=== PATIENT | male | born 1950 | race African-American/Black ===

== ENCOUNTER 2016-11-15 10:47 | Emergency (ER) | payer MEDICARE ==
[~2016-11-15] VITALS: Ht 185.4 cm; Wt 136.1 kg
[~2016-11-15 10:47] MED LIST: AMLO5TAB2 PO; APIX2.5T PO; ASPI1TAB30 PO; IBUP-1027 PO; INDO25CA PO; LISI-334 PO; LISI1TAB5 PO; METH4TAB2 PO; OMEP20TA PO; RIVA10TA PO; TIZA4CAP3 PO
[2016-11-15 11:20] VITALS: BP 132/78
[2016-11-15] MEDS ORDERED: IV NORMAL SALINE 500ML BAG 500 ML IV ONE (11:45)
[2016-11-15 12:29] LABS: BASO # 0.1 x10^3/uL (0.0-0.2); BASO % 2 % (0-3); EOS % 4 % (0-3); HEMATOCRIT 40.5 % (39.0-53.0); HEMOGLOBIN 13.5 g/dL (13.0-17.5); LYMPH % 27 % (24-48); MEAN CORPUSCULAR HEMOGLOBIN 32 pg (25-35); MEAN CORPUSCULAR HGB CONC 33 g/dL (31-37); MEAN CORPUSCULAR VOLUME 95 fL (79-100); MONO % 9 % (0-9); NEUT % 59 % (31-73); PLATELET COUNT 291 x10^3/uL (140-400); RED BLOOD COUNT 4.25 x10^6/uL (4.30-5.70); RED CELL DISTRIBUTION WIDTH 13.9 % (11.5-14.5); WHITE BLOOD COUNT 7.4 x10^3/uL (4.0-11.0)
[2016-11-15 12:32] LABS: CALCIUM 9.7 mg/dL (8.5-10.1); CREATININE 1.2 mg/dL (0.7-1.3); GFR 73.5; POTASSIUM 4.1 mmol/L (3.5-5.1)
[2016-11-15 12:38] LABS: ALBUMIN 3.7 g/dL (3.4-5.0); DIRECT BILIRUBIN 0.1 mg/dL (0.0-0.2); TOTAL BILIRUBIN 0.4 mg/dL (0.2-1.0); TOTAL PROTEIN 8.2 g/dL (6.4-8.2)
[2016-11-15] MEDS ORDERED: LIDO:MAALOX:DONNATAL 1:1:1 15 ML SINGLE DOSE SWSW ONE (13:00)
--- NOTE | 2016-11-15 13:15 | PHYS DOC ---
Past Medical History Past Medical History: A-Fib, Hypertension, Sciatica, Stroke, Other Additional Past Medical Histor: polyp Past Surgical History: Other Additional Past Surgical Histo: R knee "muscle repair"; colonoscopy Alcohol Use: None Drug Use: Marijuana Adult General Chief Complaint Chief Complaint: ABDOMINAL PAIN HPI HPI Patient is a 66 year old male who presents with multiple complaints that have developed over the past 2-3 weeks. He has intermittent, migratory abdominal pain that is crampy with constant achy epigastric abdominal pain; decreased oral intake; and intermittent left neck pain and left arm numbness. He denies chest pain, dyspnea, fever or chills, nausea or vomiting, diarrhea, constipation , dysuria, back pain, lightheadedness, dizziness, exertional symptoms, orthopnea. Review of Systems Review of Systems Constitutional: Denies fever or chills [] Eyes: Denies change in visual acuity, redness, or eye pain [] HENT: Denies nasal congestion or sore throat [] Respiratory: Denies cough or shortness of breath [] Cardiovascular: No additional information not addressed in HPI [] GI: Denies nausea, vomiting, bloody stools or diarrhea [] : Denies dysuria or hematuria [] Musculoskeletal: Denies back pain or joint pain [] Integument: Denies rash or skin lesions [] Neurologic: Denies headache, focal weakness or sensory changes [] Endocrine: Denies polyuria or polydipsia [] Current Medications Current Medications Current Medications Medications (Trade) Dose Ordered Sig/Fawad Start Time Stop Time Status Last Admin Dose Admin Multi-Ingredient Mouthwash/Gargle (Gi Cocktail Single Dose) 15 ml 1X ONCE 11/15/16 13:00 11/15/16 13:01 DC 11/15/16 13:14 15 ML Sodium Chloride (Iv Sodium Chloride 0.9% 500ml Bag) 500 ml @ 500 mls/hr 1X ONCE 11/15/16 11:45 11/15/16 12:44 DC 11/15/16 12:12 500 MLS/HR Allergies Allergies Allergies Coded Allergies Type Severity Reaction Last Updated Verified No Known Drug Allergies 05/06/15 No Physical Exam Physical Exam Constitutional: Well developed, well nourished, no acute distress, non-toxic appearance. [] HENT: Normocephalic, atraumatic, bilateral external ears normal, oropharynx moist, no oral exudates, nose normal. [] Eyes: PERRLA, EOMI. [] Neck: Normal range of motion, supple. [] Cardiovascular:Heart rate regular rhythm [] Lungs & Thorax: Bilateral breath sounds clear to auscultation [] Abdomen: Bowel sounds normal, soft, minimal epigastric tenderness, no guarding or rebound. [] Skin: Warm, dry, no erythema, no rash. [] Back: No tenderness, no CVA tenderness. [] Extremities: ROM intact, no edema, equal extremity pulses. [] Neurologic: Alert and oriented X 3, normal motor function, normal sensory function, no focal deficits noted, cranial nerves II through XII intact. [] Psychologic: Affect normal, judgement normal, mood normal. [] Current Patient Data Vital Signs Vital Signs Date Time Temp Pulse Resp B/P Pulse Ox O2 Delivery O2 Flow Rate FiO2 11/15/16 11:20 97.9 90 20 132/78 98 Room Air 97.9 Lab Values Laboratory Tests Test 11/15/16 12:10 White Blood Count 7.4x10^3/uL (4.0-11.0) Red Blood Count 4.25x10^6/uL (4.30-5.70) L Hemoglobin 13.5g/dL (13.0-17.5) Hematocrit 40.5% (39.0-53.0) Mean Corpuscular Volume 95fL (79-100) Mean Corpuscular Hemoglobin 32pg (25-35) Mean Corpuscular Hemoglobin Concent 33g/dL (31-37) Red Cell Distribution Width 13.9% (11.5-14.5) Platelet Count 291x10^3/uL (140-400) Neutrophils (%) (Auto) 59% (31-73) Lymphocytes (%) (Auto) 27% (24-48) Monocytes (%) (Auto) 9% (0-9) Eosinophils (%) (Auto) 4% (0-3) H Basophils (%) (Auto) 2% (0-3) Neutrophils # (Auto) 4.3x10^3uL (1.8-7.7) Lymphocytes # (Auto) 2.0x10^3/uL (1.0-4.8) Monocytes # (Auto) 0.7x10^3/uL (0.0-1.1) Eosinophils # (Auto) 0.3x10^3/uL (0.0-0.7) Basophils # (Auto) 0.1x10^3/uL (0.0-0.2) Sodium Level 137mmol/L (136-145) Potassium Level 4.1mmol/L (3.5-5.1) Chloride Level 102mmol/L (98-107) Carbon Dioxide Level 27mmol/L (21-32) Anion Gap 8 (6-14) Blood Urea Nitrogen 13mg/dL (8-26) Creatinine 1.2mg/dL (0.7-1.3) Estimated GFR (Cockcroft-Gault) 73.5 Glucose Level 118mg/dL (70-99) H Calcium Level 9.7mg/dL (8.5-10.1) Total Bilirubin 0.4mg/dL (0.2-1.0) Direct Bilirubin 0.1mg/dL (0.0-0.2) Aspartate Amino Transferase (AST) 15U/L (15-37) Alanine Aminotransferase (ALT) 20U/L (16-63) Alkaline Phosphatase 56U/L (46-116) Troponin I Quantitative < 0.017ng/mL (0.000-0.055) Total Protein 8.2g/dL (6.4-8.2) Albumin 3.7g/dL (3.4-5.0) Lipase 75U/L (73-393) Laboratory Tests 11/15/16 12:10 Laboratory Tests 11/15/16 12:10 EKG EKG EKG as interpreted by me as normal sinus rhythm, rate 78, no ST-T changes, normal intervals, PVCs Course & Med Decision Making Course & Med Decision Making Pertinent Labs and Imaging studies reviewed. (See chart for details) Workup is unremarkable. He is feeling better after medications. Will give trial of antacid for possible gastritis. Encouraged close follow-up with primary care. Return precautions given. He understands and agrees with plan. Dragon Disclaimer Dragon Disclaimer This electronic medical record was generated, in whole or in part, using a voice recognition dictation system. Departure Departure Impression: Primary Impression: Epigastric abdominal pain Disposition: HOME, SELF-CARE Condition: STABLE Referrals: REYNA COLEY (PCP) Patient Instructions: Gastritis, Adult, [id number] Additional Instructions: Take famotidine for possible gastritis. Follow-up with your primary care doctor within one week. Return for any concerns. Scripts Famotidine 20 Mg [id number] Mg PO BID #30 TAB Prov:Fermin UPTON MD 11/15/16 Fermin UPTON MD Nov 15, 2016 13:15
[2016-11-15] MEDS ORDERED: FAMO20TA5 PO (13:20)
--- NOTE | 2016-11-15 14:21 | EKG ---
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
== END 2016-11-15 13:35 | disposition home or self-care (01) ==
LOC: ER 10:47
DX: R10.13 Epigastric pain (principal); I10 Essential (primary) hypertension; F12.10 Cannabis abuse, uncomplicated; M54.30 Sciatica, unspecified side; Z86.73 Personal history of transient ischemic attack (TIA), and cerebral infarction without residual deficits
CPT/HCPCS: 36415; 80048; 80076; 83690; 84484; 85027; 93005; 96360; 99285; J7040

== ENCOUNTER 2017-03-24 22:23 | Emergency (ER) | payer MEDICARE ==
[~2017-03-24] VITALS: Ht 185.4 cm; Wt 135.6 kg
[~2017-03-24 22:23] MED LIST changes: +AMIO200T2 PO; +FAMO20TA5 PO; -OMEP20TA PO; +OMEP20TA8 PO; +RIVA20TA2 PO
[2017-03-24 23:12] LABS: BASO # 0.1 x10^3/uL (0.0-0.2); BASO % 1 % (0-3); EOS % 4 % (0-3); HEMATOCRIT 37.9 % (39.0-53.0); HEMOGLOBIN 12.6 g/dL (13.0-17.5); LYMPH # 2.3 x10^3/uL (1.0-4.8); LYMPH % 24 % (24-48); MEAN CORPUSCULAR HEMOGLOBIN 31 pg (25-35); MEAN CORPUSCULAR HGB CONC 33 g/dL (31-37); MEAN CORPUSCULAR VOLUME 92 fL (79-100); MONO % 6 % (0-9); NEUT % 65 % (31-73); PLATELET COUNT 316 x10^3/uL (140-400); RED BLOOD COUNT 4.12 x10^6/uL (4.30-5.70); RED CELL DISTRIBUTION WIDTH 14.5 % (11.5-14.5); WHITE BLOOD COUNT 9.6 x10^3/uL (4.0-11.0)
[2017-03-24] MEDS ORDERED: IV NORMAL SALINE 1000ML BAG 1,000 ML IV SCH (23:15)
[2017-03-24 23:19] LABS: CALCIUM 8.9 mg/dL (8.5-10.1); CREATININE 1.4 mg/dL (0.7-1.3); GFR 61.4; POTASSIUM 3.6 mmol/L (3.5-5.1)
--- NOTE | 2017-03-24 23:29 | PHYS DOC ---
Past Medical History Past Medical History: A-Fib, Hypertension, Sciatica, Stroke, Other Additional Past Medical Histor: polyp,A FIB W/RVR Past Surgical History: Other Additional Past Surgical Histo: R knee "muscle repair"; colonoscopy Alcohol Use: None Drug Use: Marijuana Adult General Chief Complaint Chief Complaint: Palpitations HPI HPI 67-year-old male with a history of atrial fibrillation on xarelto and amio, with which he is compliant, now presents to the emergency department complaining of lightheadedness. She has had a recent diagnosis of atrial fibrillation for which she was anticoagulated. He is under the care of Dr. Dias the internal combustion engine subassembler. Patient has been anxious about his medical condition and recently has felt mildly lightheaded. Suspect Dr. Dias who recommended that they arrange an outpatient Holter monitoring to rule out the possibility of an arrhythmia associated with the symptoms. This was discussed yesterday so the Holter monitor has not been arranged yet. Patient is still having the same symptoms of anxiety regarding his medical condition and occasional lightheadedness. No chest pain or shortness of breath. Patient denies fevers chills sweats or shaking chills. He says he does urinate frequently and he was somewhat concerned about that as well but does not have pain with urination. No flank pain or fever. Otherwise asymptomatic Review of Systems Review of Systems Constitutional: Denies fever or chills [] Eyes: Denies change in visual acuity, redness, or eye pain [] HENT: Denies nasal congestion or sore throat [] Respiratory: Denies cough or shortness of breath [] Cardiovascular: No additional information not addressed in HPI [] GI: Denies abdominal pain, nausea, vomiting, bloody stools or diarrhea [] : Denies dysuria or hematuria [] Musculoskeletal: Denies back pain or joint pain [] Integument: Denies rash or skin lesions [] Neurologic: Denies headache, focal weakness or sensory changes [] Endocrine: Denies polyuria or polydipsia [] Current Medications Current Medications Current Medications Medications (Trade) Dose Ordered Sig/Fawad Start Time Stop Time Status Last Admin Dose Admin Alprazolam (Xanax) 1 mg 1X ONCE 03/24/17 23:30 03/24/17 23:31 DC 03/24/17 23:34 1 MG Sodium Chloride 1,000 ml @ 1,000 mls/hr Q1H 6/29/17 23:15 03/25/17 00:14 DC 03/24/17 23:11 1,000 MLS/HR Allergies Allergies Allergies Coded Allergies Type Severity Reaction Last Updated Verified No Known Drug Allergies 05/06/15 No Physical Exam Physical Exam Well-appearing morbidly obese male in no acute distress except clearly with mild anxiety. Nonfocal neurologic exam. Regular rate and rhythm with no tachycardia. Completely benign exam otherwise Constitutional: Well developed, well nourished, no acute distress, non-toxic appearance. [] HENT: Normocephalic, atraumatic, bilateral external ears normal, oropharynx moist, no oral exudates, nose normal. [] Eyes: PERRLA, EOMI, conjunctiva normal, no discharge. [] Neck: Normal range of motion, no tenderness, supple, no stridor. [] Cardiovascular:Heart rate regular rhythm, no murmur [] Lungs & Thorax: Bilateral breath sounds clear to auscultation [] Abdomen: Bowel sounds normal, soft, no tenderness, no masses, no pulsatile masses. [] Skin: Warm, dry, no erythema, no rash. [] Back: No tenderness, no CVA tenderness. [] Extremities: No tenderness, no cyanosis, no clubbing, ROM intact, no edema. [] Neurologic: Alert and oriented X 3, normal motor function, normal sensory function, no focal deficits noted. [] Psychologic: Affect with mild anxiety as mentioned above judgement normal, mood normal. [] Current Patient Data Vital Signs Vital Signs Date Time Temp Pulse Resp B/P (MAP) Pulse Ox O2 Delivery O2 Flow Rate FiO2 03/24/17 22:35 98.9 81 18 144/78 (100) 98 Room Air 98.9 Lab Values Laboratory Tests Test 03/24/17 22:50 03/24/17 23:58 White Blood Count 9.6 x10^3/uL (4.0-11.0) Red Blood Count 4.12 x10^6/uL (4.30-5.70) L Hemoglobin 12.6 g/dL (13.0-17.5) L Hematocrit 37.9 % (39.0-53.0) L Mean Corpuscular Volume 92 fL (79-100) Mean Corpuscular Hemoglobin 31 pg (25-35) Mean Corpuscular Hemoglobin Concent 33 g/dL (31-37) Red Cell Distribution Width 14.5 % (11.5-14.5) Platelet Count 316 x10^3/uL (140-400) Neutrophils (%) (Auto) 65 % (31-73) Lymphocytes (%) (Auto) 24 % (24-48) Monocytes (%) (Auto) 6 % (0-9) Eosinophils (%) (Auto) 4 % (0-3) H Basophils (%) (Auto) 1 % (0-3) Neutrophils # (Auto) 6.2 x10^3uL (1.8-7.7) Lymphocytes # (Auto) 2.3 x10^3/uL (1.0-4.8) Monocytes # (Auto) 0.6 x10^3/uL (0.0-1.1) Eosinophils # (Auto) 0.3 x10^3/uL (0.0-0.7) Basophils # (Auto) 0.1 x10^3/uL (0.0-0.2) Sodium Level 139 mmol/L (136-145) Potassium Level 3.6 mmol/L (3.5-5.1) Chloride Level 104 mmol/L (98-107) Carbon Dioxide Level 25 mmol/L (21-32) Anion Gap 10 (6-14) Blood Urea Nitrogen 12 mg/dL (8-26) Creatinine 1.4 mg/dL (0.7-1.3) H Estimated GFR (Cockcroft-Gault) 61.4 Glucose Level 137 mg/dL (70-99) H Calcium Level 8.9 mg/dL (8.5-10.1) Troponin I Quantitative < 0.017 ng/mL (0.000-0.055) Urine Collection Type Unknown Urine Color Yellow Urine Clarity Clear Urine pH 6.0 Urine Specific [place] 1.015 Urine Protein Negative mg/dL (NEG-TRACE) Urine Glucose (UA) Negative mg/dL (NEG) Urine Ketones (Stick) Negative mg/dL (NEG) Urine Blood Negative (NEG) Urine Nitrite Negative (NEG) Urine Bilirubin Negative (NEG) Urine Urobilinogen Dipstick 2.0 mg/dL (0.2 mg/dL) Urine Leukocyte Esterase Negative (NEG) Urine RBC 0 /HPF (0-2) Urine WBC Occ /HPF (0-4) Urine Squamous Epithelial Cells Few /LPF Urine Bacteria 0 /HPF (0-FEW) Urine Mucus Slight /LPF Laboratory Tests 03/24/17 22:50 Laboratory Tests 03/24/17 22:50 EKG EKG Normal sinus rhythm at 84 LAD. Left anterior hemiblock no STEMI interpreted by me [] Radiology/Procedures Radiology/Procedures [] Course & Med Decision Making Course & Med Decision Making Pertinent Labs and Imaging studies reviewed. (See chart for details) Signs and symptoms consistent with mild lightheadedness in the setting of anxiety about medical condition. Should hemodynamically stable with no A. fib at this time no arrhythmia however he still feels slightly lightheaded. agrees with suspicion that patient is anxious about his situation. All the symptoms have been discussed with patient's internal combustion engine subassembler yesterday and outpatient Holter monitoring is being arranged. Full workup pending in the emergency department. Patient's EKG normal sinus rhythm at 84 LAD left anterior hemiblock and no evidence of STEMI interpreted by me in x-ray and labs pending. If results are unremarkable patient and agree with outpatient follow-up with Dr. Dias and strict return precautions will be given. [] Dragon Disclaimer Dragon Disclaimer This electronic medical record was generated, in whole or in part, using a voice recognition dictation system. Departure Departure Impression: Primary Impression: Lightheadedness Additional Impression: Anxiety Disposition: 01 HOME, SELF-CARE Condition: GOOD Referrals: REYNA COLEY (PCP) Patient Instructions: Anxiety and Panic Attacks, Chronic Renal Insufficiency, Dizziness Additional Instructions: It is not clear what is causing your lightheadedness recently. He did not have any evidence of a heart arrhythmia here in the emergency department. It does seem clear that anxiety is a contributory component to her symptoms today. Follow-up with your doctor tomorrow for reevaluation to discuss the possible need for medication for anxiety control. Follow up with Dr. Dias as previously discussed to arrange Holter monitoring. Return immediately for new severe or worsening symptoms Problem Qualifiers DENISE MCCARTY MD Mar 24, 2017 23:29
[2017-03-24] MEDS ORDERED: ALPRAZolam 0.5 MG TABLET PO ONE (23:30)
[2017-03-25 00:03] LABS: BILIRUBIN,URINE NEGATIVE (NEG); GLUCOSE,URINE NEGATIVE (NEG); NITRITE,URINE NEGATIVE (NEG); PROTEIN,URINE NEGATIVE (NEG-TRACE)
[2017-03-25 00:08] LABS: BACTERIA,URINE 0 /HPF (0-FEW); RBC,URINE 0 /HPF (0-2); SQUAMOUS EPITHELIAL CELL,UR FEW /LPF; WBC,URINE OCC /HPF (0-4)
[2017-03-25 01:39] VITALS: BP 129/69
--- NOTE | 2017-03-25 06:51 | EKG ---
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
--- NOTE | 2017-03-25 07:25 | RAD ---
Portable AP upright view CXR: Clinical indications: Dizziness. Palpitations. Tachycardia. Comparison: March 04, 2017. Findings: No acute lung infiltrate or pleural effusion or pulmonary edema or lung mass or pneumothorax is seen. The heart size, pulmonary vasculature, mediastinum and both moncho are unremarkable. Impression: No acute radiographic abnormality is seen.
== END 2017-03-25 02:10 | disposition home or self-care (01) ==
LOC: ER 22:23
DX: R42 Dizziness and giddiness (principal); F41.9 Anxiety disorder, unspecified; Z86.73 Personal history of transient ischemic attack (TIA), and cerebral infarction without residual deficits; I48.91 Unspecified atrial fibrillation; I10 Essential (primary) hypertension; F12.10 Cannabis abuse, uncomplicated; E66.01 Morbid (severe) obesity due to excess calories; Z68.39 Body mass index [BMI] 39.0-39.9, adult; Z79.01 Long term (current) use of anticoagulants
CPT/HCPCS: 36415; 71010; 80048; 81001; 84484; 85027; 93005; 96360; 99285; J7030

== ENCOUNTER → 2017-04-12 | Outpatient (CLI) | payer MEDICARE ==
[2017-03-25 01:39] VITALS: BP 129/69
--- NOTE | 2017-04-14 14:54 | EKG ---
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 PAUSES UP TO 1.85 SECONDS. FREQUENT PVC'S WITH OCCASIONAL VENTRICULAR COUPLETS. TWO EPISODES OF 3 BEAT V-TACH. Electronically Signed On 04-14-2017 15:00:50 CDT by Crow Bolivar
== END | disposition home or self-care (01) ==
LOC: EKG 09:01
PROVIDERS: ATTEND Internal Medicine Cardiovascular Disease
DX: I48.0 Paroxysmal atrial fibrillation (principal); I10 Essential (primary) hypertension; E66.9 Obesity, unspecified
CPT/HCPCS: 93225; 93226

== ENCOUNTER 2017-11-10 09:07 | Emergency (ER) | payer MEDICARE ==
[2017-11-10 10:51] LABS: NEGATIVE OBC STREP NEG; POSITIVE OBC STREP POS
[2017-11-10 11:13] LABS: INFLUENZA A PATIENT NEGATIVE (NEGATIVE); INFLUENZA B PATIENT NEGATIVE (NEGATIVE); OBC FLU VALID
== END 2017-11-10 11:43 | disposition home or self-care (01) ==
LOC: ER 09:07
DX: J02.0 Streptococcal pharyngitis (principal); I10 Essential (primary) hypertension; I48.91 Unspecified atrial fibrillation; F12.10 Cannabis abuse, uncomplicated; Z86.73 Personal history of transient ischemic attack (TIA), and cerebral infarction without residual deficits
CPT/HCPCS: 87804; 87804-59; 87880; 99284

== ENCOUNTER 2020-05-20 18:47 | Inpatient (IN) | payer MEDICARE ==
[~2020-05-20] VITALS: Ht 188 cm; Wt 136.5 kg
[~2020-05-20 18:47] MED LIST changes: -AMIO200T2 PO; +AMIO200T4 PO; +AMLO5TAB10 PO; -AMLO5TAB2 PO; +AMOX875T PO; -ASPI1TAB30 PO; +ASPI1TAB31 PO; -INDO25CA PO; +INDO25CA21 PO; +LISI1TAB37 PO; -LISI1TAB5 PO
[2020-05-20 19:45] LABS: BASO # 0.1 x10^3/uL (0.0-0.2); BASO % 0 % (0-3); EOS # 0.1 x10^3/uL (0.0-0.7); EOS % 1 % (0-3); HEMATOCRIT 40.9 % (39.0-53.0); LYMPH # 0.7 x10^3/uL (1.0-4.8); LYMPH % 4 % (24-48); MEAN CORPUSCULAR HEMOGLOBIN 33 pg (25-35); MEAN CORPUSCULAR HGB CONC 34 g/dL (31-37); MEAN CORPUSCULAR VOLUME 96 fL (79-100); MONO # 0.1 x10^3/uL (0.0-1.1); MONO % 1 % (0-9); NEUT # 15.9 x10^3/uL (1.8-7.7); NEUT % 94 % (31-73); PLATELET COUNT 263 x10^3/uL (140-400); RED BLOOD COUNT 4.27 x10^6/uL (4.30-5.70); RED CELL DISTRIBUTION WIDTH 14.6 % (11.5-14.5); WHITE BLOOD COUNT 16.9 x10^3/uL (4.0-11.0)
[2020-05-20 19:55] LABS: CALCIUM 9.2 mg/dL (8.5-10.1); CREATININE 1.4 mg/dL (0.7-1.3); GFR 60.8; POTASSIUM 3.3 mmol/L (3.5-5.1)
[2020-05-20 20:02] LABS: ALBUMIN 3.3 g/dL (3.4-5.0); ALBUMIN/GLOBULIN RATIO 0.8 (1.0-1.7); TOTAL PROTEIN 7.7 g/dL (6.4-8.2)
--- NOTE | 2020-05-20 20:05 | RAD ---
CHEST PA LATERAL History: Jaw pain Comparison: March 24, 2017 Findings: 2 views of the chest are submitted. There is no infiltrate, pneumothorax, or effusion. Pericardial cardiac silhouette is within normal limits in size. Impression: 1. There is no radiographic evidence of acute cardiopulmonary disease. Electronically signed by: Clifford Sanders MD (05/20/2020 8:02 PM) [facility]
[2020-05-20 20:13] LABS: BILIRUBIN,URINE NEGATIVE (NEG); CLARITY,URINE CLOUDY; COLOR,URINE AMBER; NITRITE,URINE POSITIVE (NEG); PH,URINE 5.5 (<5.0-8.0); PROTEIN,URINE 100 mg/dL (NEG-TRACE)
[2020-05-20 20:50] LABS: BACTERIA,URINE MANY /HPF (0-FEW); RBC,URINE >40 /HPF (0-2); SQUAMOUS EPITHELIAL CELL,UR OCC /LPF; WBC,URINE TNTC /HPF (0-4)
[2020-05-20 21:11] LABS: % BANDS 2 % (0-9); % LYMPHS 4 % (24-48); % MONOS 2 % (0-10); % SEGS 92 % (35-66); PLT ESTIMATE ADEQUATE (ADEQUATE)
[2020-05-20] MEDS ORDERED: HYDROcodone/APAP 5/325MG 1 TAB TABLET PO ONE (21:45)
[2020-05-20] MEDS ORDERED: IOHEXOL 300 MG/ML 100ML VIAL. IV ONE (22:45)
[2020-05-20] MEDS ORDERED: CONTRAST GIVEN. MC PRN (22:45)
--- NOTE | 2020-05-20 22:54 | RAD ---
Exam: CT Neck with contrast INDICATION: Right jaw pain TECHNIQUE: Sequential axial images through the neck obtained following the administration of 70 mL of Omni 300 IV contrast. Sagittal and coronal reformatted images were reconstructed from the axial data and reviewed. Comparisons: None FINDINGS: Visualized intracranial structures are unremarkable. Globes and intraorbital contents are normal. Visualized portions of the paranasal sinuses and mastoid air cells are well-pneumatized. Visualized cervical vasculature is patent. Nasopharynx, oropharynx, hypopharynx and larynx are unremarkable. Thyroid and salivary glands are within normal limits. No enlarged cervical lymph nodes are identified. Bone mineralization is normal. No suspicious osseous lesions or acute fractures. IMPRESSION: No acute process identified within the neck. No explanation for patient's right jaw pain seen. Exposure: One or more of the following in the visualized dose reduction techniques were utilized for this examination: 1. Automated exposure control 2. Adjustment of the MA and/or KV according to patient size 3. Use of iterative of reconstructive technique Electronically signed by: Julissa Sevilla MD (05/20/2020 10:51 PM) [id number]
--- NOTE | 2020-05-20 23:14 | PHYS DOC ---
Past Medical History Past Medical History: A-Fib, Hypertension, Sciatica, Stroke, Other Additional Past Medical Histor: polyp,A FIB W/RVR Past Surgical History: Other Additional Past Surgical Histo: R knee "muscle repair"; colonoscopy, L EYE Smoking Status: Former Smoker Alcohol Use: None Drug Use: Marijuana General Adult EDM: Chief Complaint: WEAKNESS/GENERALIZED HPI: HPI: The history was obtained from the patient. Patient is a 70-year-old male with PMH significant for atrial fibrillation, hypertension, hyperlipidemia, obesity who presents with a chief complaint of jaw pain. Patient states he has had intermittent right jaw pain over the past several days. He states he is also noted intermittent chest pain over that time period. He states that it seems to occur with exertion. Does note some increase shortness of breath. States he does not miss any of his medications. Does take Eliquis daily for A. fib. He states that his family doctor has an appointment to see a aeronautical products sales engineer in 5 days for an irregular rhythm. He is unsure whether he has had invasive cardiac testing in the past. Denies fevers. Denies pain with chewing. Denies vomiting. Denies cough. Patient denies any history of immobilization greater than 48 hours, recent hospitalizations, recent surgery, recent trauma, , oral contraceptive usage, hormone replacement therapy, air travel greater than 8 hours, recent infectious disease, or general deterioration of their overall condition. Review of Systems: Review of Systems: Constitutional: Denies fever or chills. [] Eyes: Denies change in visual acuity. [] HENT: Denies nasal congestion or sore throat. [] Respiratory: Denies cough or shortness of breath. [] Cardiovascular: Positive for chest pain and jaw pain GI: Denies abdominal pain, nausea, vomiting, bloody stools or diarrhea. [] : Denies dysuria. [] Musculoskeletal: Denies back pain or joint pain. [] Integument: Denies rash. [] Neurologic: Denies headache, focal weakness or sensory changes. [] Endocrine: Denies polyuria or polydipsia. [] Lymphatic: Denies swollen glands. [] Psychiatric: Denies depression or anxiety. [] Heart Score: HEART Score for Chest Pain: HEART Score for Chest Pain Response (Comments) Value History Moderately Suspicious 1 ECG Nonspecific Repolarizatio 1 Age > 65 2 Risk Factors 1 or 2 Risk Factors 1 Troponin < Normal Limit 0 Total 5 Risk Factors: Risk Factors: DM, Current or recent (<one month) smoker, HTN, HLP, family history of CAD, obesity. Risk Scores: Score 0 - 3: 2.5% MACE over next 6 weeks - Discharge Home Score 4 - 6: 20.3% MACE over next 6 weeks - Admit for Clinical Observation Score 7 - 10: 72.7% MACE over next 6 weeks - Early Invasive Strategies Current Medications: Current Medications Medications (Trade) Dose Ordered Sig/Fawad Start Time Stop Time Status Last Admin Dose Admin Acetaminophen/ Hydrocodone Bitart (Lortab 5/325) 1 tab 1X ONCE 05/20/20 21:45 05/20/20 21:46 DC 05/20/20 21:41 1 TAB Info (CONTRAST GIVEN -- Rx MONITORING) 1 each PRN DAILY PRN 05/20/20 22:45 05/22/20 22:44 Iohexol (Omnipaque 300 Mg/ml) 70 ml 1X ONCE 05/20/20 22:45 05/20/20 22:46 DC Allergies: Allergies: Allergies Coded Allergies Type Severity Reaction Last Updated Verified No Known Drug Allergies 05/06/15 No Physical Exam: PE: Constitutional: Well developed, well nourished, no acute distress, non-toxic appearance. [] HENT: Normocephalic, atraumatic, bilateral external ears normal, oropharynx moist, no oral exudates, nose normal. [] Eyes: PERRLA, EOMI, conjunctiva normal, no discharge. [] Neck: Normal range of motion, no tenderness, supple, no stridor. [] Cardiovascular:Heart rate regular rhythm, no murmur [] Lungs & Thorax: Bilateral breath sounds clear to auscultation [] Abdomen: soft, no tenderness, no masses, no pulsatile masses. [] Skin: Warm, dry, no erythema, no rash. [] Back: No tenderness, no CVA tenderness. [] Extremities: No tenderness, no cyanosis, no clubbing, ROM intact, no edema. [] Neurologic: Alert and oriented X 3, normal motor function, normal sensory function, no focal deficits noted. [] Psychologic: Affect normal, judgement normal, mood normal. [] Current Patient Data: Labs: Laboratory Tests Test 05/20/20 19:37 05/20/20 19:51 White Blood Count 16.9 x10^3/uL (4.0-11.0) H Red Blood Count 4.27 x10^6/uL (4.30-5.70) L Hemoglobin 14.0 g/dL (13.0-17.5) Hematocrit 40.9 % (39.0-53.0) Mean Corpuscular Volume 96 fL (79-100) Mean Corpuscular Hemoglobin 33 pg (25-35) Mean Corpuscular Hemoglobin Concent 34 g/dL (31-37) Red Cell Distribution Width 14.6 % (11.5-14.5) H Platelet Count 263 x10^3/uL (140-400) Neutrophils (%) (Auto) 94 % (31-73) H Lymphocytes (%) (Auto) 4 % (24-48) L Monocytes (%) (Auto) 1 % (0-9) Eosinophils (%) (Auto) 1 % (0-3) Basophils (%) (Auto) 0 % (0-3) Neutrophils # (Auto) 15.9 x10^3/uL (1.8-7.7) H Lymphocytes # (Auto) 0.7 x10^3/uL (1.0-4.8) L Monocytes # (Auto) 0.1 x10^3/uL (0.0-1.1) Eosinophils # (Auto) 0.1 x10^3/uL (0.0-0.7) Basophils # (Auto) 0.1 x10^3/uL (0.0-0.2) Segmented Neutrophils % 92 % (35-66) H Band Neutrophils % 2 % (0-9) Lymphocytes % 4 % (24-48) L Monocytes % 2 % (0-10) Platelet Estimate Adequate (ADEQUATE) Sodium Level 141 mmol/L (136-145) Potassium Level 3.3 mmol/L (3.5-5.1) L Chloride Level 105 mmol/L (98-107) Carbon Dioxide Level 26 mmol/L (21-32) Anion Gap 10 (6-14) Blood Urea Nitrogen 17 mg/dL (8-26) Creatinine 1.4 mg/dL (0.7-1.3) H Estimated GFR (Cockcroft-Gault) 60.8 BUN/Creatinine Ratio 12 (6-20) Glucose Level 133 mg/dL (70-99) H Calcium Level 9.2 mg/dL (8.5-10.1) Total Bilirubin 1.0 mg/dL (0.2-1.0) Aspartate Amino Transferase (AST) 5 U/L (15-37) L Alanine Aminotransferase (ALT) 20 U/L (16-63) Alkaline Phosphatase 49 U/L (46-116) Troponin I Quantitative < 0.017 ng/mL (0.000-0.055) KE-Ffk-D-Type Natriuretic Peptide 205 pg/mL (0-124) H Total Protein 7.7 g/dL (6.4-8.2) Albumin 3.3 g/dL (3.4-5.0) L Albumin/Globulin Ratio 0.8 (1.0-1.7) L Urine Collection Type Unknown Urine Color Soo Urine Clarity Cloudy Urine pH 5.5 (<5.0-8.0) Urine Specific [place] 1.020 (1.000-1.030) Urine Protein 100 mg/dL (NEG-TRACE) Urine Glucose (UA) Negative mg/dL (NEG) Urine Ketones (Stick) Negative mg/dL (NEG) Urine Blood Large (NEG) Urine Nitrite Positive (NEG) Urine Bilirubin Negative (NEG) Urine Urobilinogen Dipstick 1.0 mg/dL (0.2 mg/dL) Urine Leukocyte Esterase Large (NEG) Urine RBC >40 /HPF (0-2) Urine WBC Tntc /HPF (0-4) Urine Squamous Epithelial Cells Occ /LPF Urine Bacteria Many /HPF (0-FEW) Laboratory Tests 05/20/20 19:37 Laboratory Tests 05/20/20 19:37 Vital Signs: Vital Signs Date Time Temp Pulse Resp B/P (MAP) Pulse Ox O2 Delivery O2 Flow Rate FiO2 05/20/20 21:41 18 100 Room Air 05/20/20 19:15 99.3 84 125/61 (82) 99.3 EKG: EKG: EKG consistent with sinus rhythm. Ventricular rate of 84 bpm. Left axis noted. No acute ischemic changes appreciated. Enlarged P waves in the inferior leads. [] Radiology/Procedures: Radiology/Procedures: [] Course & Med Decision Making: Course & Med Decision Making Pertinent Labs and Imaging studies reviewed. (See chart for details) Patient is a 70 male who presents with chief complaint of jaw pain associated chest pain. Initial EKG shows no acute ischemic changes. Basic labs of been obtained. Troponin negative. CT soft tissue neck was obtained given the patient noted some increased discomfort of his right jaw with movement. No signs of underlying infection. I am concerned this could be related to an anginal equivalent. He does have a moderate risk heart score. Patient will be hospitalized for further care. Urine is concerning for infection. Patient was given Rocephin. He remains chest pain-free currently. Dragon Disclaimer: Dragon Disclaimer: This electronic medical record was generated, in whole or in part, using a voice recognition dictation system. Departure Departure Impression: Primary Impression: Chest pain Qualified Codes: R07.89 - Other chest pain Additional Impressions: Atrial fibrillation Qualified Codes: I48.91 - Unspecified atrial fibrillation Hypertension Qualified Codes: I10 - Essential (primary) hypertension Acute UTI Disposition: ADMITTED INPATIENT Condition: GOOD Referrals: UNKNOWN PCP NAME (PCP) Justicifation of Admission Dx: Justifications for Admission: Justification of Admission Dx: Yes Angina: [place] Worsening of Sym JOSE DICKENS DO May 20, 2020 23:14
[2020-05-20] MEDS ORDERED: cefTRIAXone IV Push 1 GM VIAL. IVP ONE (23:15)
[2020-05-20] MEDS ORDERED: ASPIRIN CHEWABLE 81 MG TABLET. PO ONE (23:45)
[2020-05-21 00:50] VITALS: BP 108/64
[2020-05-21] MEDS ORDERED: APIX5TAB PO (01:04)
[2020-05-21] MEDS ORDERED: FERR325T3 PO (01:04)
[2020-05-21] MEDS ORDERED: AMIO200T4 PO (01:04)
--- NOTE | 2020-05-21 01:50 | NUR ---
The patient, CAIO KNOX, 70 y/o, M admitted by JUDI COBURN III, DO, was given written information regarding hospital policies, unit procedures and contact persons. Valuables were checked and left in room with patient . Vitals stable, call light in reach, will continue to monitor.
--- NOTE | 2020-05-21 03:04 | EKG ---
[facility] [address] [place] [address] Test Date: 2020-05-20 Test Time: 19:22:33 Pat Name: CAIO KNOX Department: Room: Gender: M Treatment Manager: : 1950 Requested By: JOSE DICKENS Order Number: [id number] Reading MD: Measurements Intervals [place] Rate: 84 P: 2 NV: 160 QRS: -33 QRSD: 96 T: 37 QT: 404 QTc: 481 Interpretive Statements SINUS RHYTHM ABNORMAL LEFT AXIS DEVIATION LEFT ANTERIOR FASCICULAR BLOCK PROLONGED QT ABNORMAL ECG RI6.02 No previous ECG available for comparison
[2020-05-21 03:07] VITALS: BP 95/45
[2020-05-21 04:16] LABS: BASO % 0 % (0-3); EOS # 0.1 x10^3/uL (0.0-0.7); EOS % 0 % (0-3); HEMATOCRIT 37.4 % (39.0-53.0); LYMPH # 1.1 x10^3/uL (1.0-4.8); LYMPH % 7 % (24-48); MEAN CORPUSCULAR HEMOGLOBIN 33 pg (25-35); MEAN CORPUSCULAR HGB CONC 35 g/dL (31-37); MEAN CORPUSCULAR VOLUME 96 fL (79-100); MONO # 0.8 x10^3/uL (0.0-1.1); MONO % 5 % (0-9); NEUT # 13.7 x10^3/uL (1.8-7.7); NEUT % 87 % (31-73); PLATELET COUNT 243 x10^3/uL (140-400); RED CELL DISTRIBUTION WIDTH 14.4 % (11.5-14.5); WHITE BLOOD COUNT 15.7 x10^3/uL (4.0-11.0)
[2020-05-21 04:33] LABS: CALCIUM 8.5 mg/dL (8.5-10.1); CREATININE 1.3 mg/dL (0.7-1.3); GFR 66.2; POTASSIUM 3.7 mmol/L (3.5-5.1)
[2020-05-21 07:00] VITALS: BP 110/63
[2020-05-21 08:52] LABS: CHOLESTEROL/HDL RATIO 3.4
[2020-05-21 11:09] VITALS: BP 154/79
--- NOTE | 2020-05-21 11:32 | PDOC2 ---
CARDIAC CONSULT DATE OF CONSULT Date of Consult DATE: 05/21/20 TIME: 11:15 REASON FOR CONSULT Reason for Consult: r/o ACS REFERRING PHYSICIAN Referring Physician: Elizabeth SOURCE Source: Chart review, Patient HISTORY OF PRESENT ILLNESS HISTORY OF PRESENT ILLNESS This is a pleasant 70 yo male admitted for complains of jaw pain. No chest pain per se and no radiating CP as well. Reports that in the last 2 days he has been having some right jaw discomfort and actuallu on the base of his cheek which is nagging and also painful with chewing and hurts as well when swallowing. No associated nausea, vomiting, indigestion. He had some chills at one point but no recorded fever. Denies any TMJ, recent oropharygeal infection and no recent antibiotics. No recent falls or injury. He was actually referred to as by general surgery as an outpt due to irregular HR noted at the dr office. Presently he is SR with no ectopies and with hx of AFIB with no symptoms of dizziness and palpitations. His mobility is somewhat limited due his sciatica and has not been gaining any wt but actually lost some. He denies any significant decrease in his functional capacity but certainly with decrease endurance. No LAGUNAS and exertional based on his regular baseline mobility. He did take nyquil to relieve the discomfort. Presently he does not have any symptoms even with mandibular manipulation. No cold or cough symptoms. PAST MEDICAL HISTORY Cardiovascular: AFIB (past cardioversion), HTN Pulmonary: No pertinent hx CENTRAL NERVOUS SYSTEM: CVA GI: Other (polyp) Heme/Onc: Anemia NOS Hepatobiliary: No pertinent hx Psych: No pertinent hx Musculoskeletal: low back pain (sciatica), Osteoarthritis Rheumatologic: No pertinent hx Infectious disease: No pertinent hx ENT: No pertinent hx Renal/: Benign prostatic enlarg. Endocrine: No pertinent hx Dermatology: No pertinent hx PAST SURGICAL HISTORY Past Surgical History: Arthroscopy (right knee), Other (left eye surgery) FAMILY HISTORY Family History noncontributory to CV SOCIAL HISTORY Smoke: No ALCOHOL: none Drugs: Marijuana Lives: with Family CURRENT MEDICATIONS CURRENT MEDICATIONS Current Medications Medications (Trade) Dose Ordered Sig/Fawad Route PRN Reason Start Time Stop Time Status Last Admin Dose Admin Acetaminophen/ Hydrocodone Bitart (Lortab 5/325) 1 tab 1X ONCE PO 05/20/20 21:45 05/20/20 21:46 DC 05/20/20 21:41 Ceftriaxone Sodium (Rocephin) 1 gm 1X ONCE IVP 05/20/20 23:15 05/20/20 23:16 DC 05/20/20 23:53 Aspirin (Aspirin Chewable) 324 mg 1X ONCE PO 05/20/20 23:45 05/20/20 23:54 DC 05/20/20 23:54 ALLERGIES ALLERGIES: Coded Allergies: No Known Drug Allergies (Unverified , 05/06/15) ROS Review of System 14 point ROS evaluated with pertinent positives noted per HPI PHYSICAL EXAM General: Alert, Oriented X3, Cooperative, No acute distress HEENT: Atraumatic, Mucous membr. moist/pink Lungs: Clear to auscultation, Normal air movement Heart: Regular rate (SR/SB), Normal S1, Normal S2, No murmurs Abdomen: Soft, No tenderness Extremities: No cyanosis, No edema Skin: No breakdown, No significant lesion Neuro: Normal speech, Sensation intact Psych/Mental Status: Mental status NL, Mood NL MUSCULOSKELETAL: Osteoarthritic changes both hands VITALS/I&O VITALS/I&O: Vital Signs Date Time Temp Pulse Resp B/P (MAP) Pulse Ox O2 Delivery O2 Flow Rate FiO2 05/21/20 11:09 98.2 75 18 154/79 (104) 95 Room Air 98.2 I & O 05/20/20 05/20/20 05/21/20 15:00 23:00 07:00 Intake Total 0 ml Balance 0 ml LABS Lab: Laboratory Tests Test 05/20/20 19:37 05/20/20 19:51 05/21/20 03:28 White Blood Count 16.9 x10^3/uL (4.0-11.0) H 15.7 x10^3/uL (4.0-11.0) H Red Blood Count 4.27 x10^6/uL (4.30-5.70) L 3.90 x10^6/uL (4.30-5.70) L Hemoglobin 14.0 g/dL (13.0-17.5) 13.0 g/dL (13.0-17.5) Hematocrit 40.9 % (39.0-53.0) 37.4 % (39.0-53.0) L Mean Corpuscular Volume 96 fL (79-100) 96 fL (79-100) Mean Corpuscular Hemoglobin 33 pg (25-35) 33 pg (25-35) Mean Corpuscular Hemoglobin Concent 34 g/dL (31-37) 35 g/dL (31-37) Red Cell Distribution Width 14.6 % (11.5-14.5) H 14.4 % (11.5-14.5) Platelet Count 263 x10^3/uL (140-400) 243 x10^3/uL (140-400) Neutrophils (%) (Auto) 94 % (31-73) H 87 % (31-73) H Lymphocytes (%) (Auto) 4 % (24-48) L 7 % (24-48) L Monocytes (%) (Auto) 1 % (0-9) 5 % (0-9) Eosinophils (%) (Auto) 1 % (0-3) 0 % (0-3) Basophils (%) (Auto) 0 % (0-3) 0 % (0-3) Neutrophils # (Auto) 15.9 x10^3/uL (1.8-7.7) H 13.7 x10^3/uL (1.8-7.7) H Lymphocytes # (Auto) 0.7 x10^3/uL (1.0-4.8) L 1.1 x10^3/uL (1.0-4.8) Monocytes # (Auto) 0.1 x10^3/uL (0.0-1.1) 0.8 x10^3/uL (0.0-1.1) Eosinophils # (Auto) 0.1 x10^3/uL (0.0-0.7) 0.1 x10^3/uL (0.0-0.7) Basophils # (Auto) 0.1 x10^3/uL (0.0-0.2) 0.0 x10^3/uL (0.0-0.2) Segmented Neutrophils % 92 % (35-66) H Band Neutrophils % 2 % (0-9) Lymphocytes % 4 % (24-48) L Monocytes % 2 % (0-10) Platelet Estimate Adequate (ADEQUATE) Sodium Level 141 mmol/L (136-145) 141 mmol/L (136-145) Potassium Level 3.3 mmol/L (3.5-5.1) L 3.7 mmol/L (3.5-5.1) Chloride Level 105 mmol/L (98-107) 105 mmol/L (98-107) Carbon Dioxide Level 26 mmol/L (21-32) 28 mmol/L (21-32) Anion Gap 10 (6-14) 8 (6-14) Blood Urea Nitrogen 17 mg/dL (8-26) 15 mg/dL (8-26) Creatinine 1.4 mg/dL (0.7-1.3) H 1.3 mg/dL (0.7-1.3) Estimated GFR (Cockcroft-Gault) 60.8 66.2 BUN/Creatinine Ratio 12 (6-20) Glucose Level 133 mg/dL (70-99) H 105 mg/dL (70-99) H Calcium Level 9.2 mg/dL (8.5-10.1) 8.5 mg/dL (8.5-10.1) Total Bilirubin 1.0 mg/dL (0.2-1.0) Aspartate Amino Transferase (AST) 5 U/L (15-37) L Alanine Aminotransferase (ALT) 20 U/L (16-63) Alkaline Phosphatase 49 U/L (46-116) Troponin I Quantitative < 0.017 ng/mL (0.000-0.055) 0.020 ng/mL (0.000-0.055) CH-Gsm-C-Type Natriuretic Peptide 205 pg/mL (0-124) H Total Protein 7.7 g/dL (6.4-8.2) Albumin 3.3 g/dL (3.4-5.0) L Albumin/Globulin Ratio 0.8 (1.0-1.7) L Urine Collection Type Unknown Urine Color Soo Urine Clarity Cloudy Urine pH 5.5 (<5.0-8.0) Urine Specific [place] 1.020 (1.000-1.030) Urine Protein 100 mg/dL (NEG-TRACE) Urine Glucose (UA) Negative mg/dL (NEG) Urine Ketones (Stick) Negative mg/dL (NEG) Urine Blood Large (NEG) Urine Nitrite Positive (NEG) Urine Bilirubin Negative (NEG) Urine Urobilinogen Dipstick 1.0 mg/dL (0.2 mg/dL) Urine Leukocyte Esterase Large (NEG) Urine RBC >40 /HPF (0-2) Urine WBC Tntc /HPF (0-4) Urine Squamous Epithelial Cells Occ /LPF Urine Bacteria Many /HPF (0-FEW) Triglycerides Level 72 mg/dL (0-150) Cholesterol Level 131 mg/dL (0-200) LDL Cholesterol, Calculated 78 mg/dL (0-100) VLDL Cholesterol, Calculated 14 mg/dL (0-40) Non-HDL Cholesterol Calculated 92 mg/dL (0-129) HDL Cholesterol 39 mg/dL (40-60) L Cholesterol/HDL Ratio 3.4 Thyroid Stimulating Hormone (TSH) 0.471 uIU/mL (0.358-3.74) Laboratory Tests 05/20/20 19:37 05/21/20 03:28 Laboratory Tests 05/20/20 19:37 05/21/20 03:28 ASSESSMENT/PLAN ASSESSMENT/PLAN 1. Right jaw pain/odynophagia: suspect likely pharyngitis 2. Atypical chest pain: denies for me. Doubt ACS. 3. UTI: per PCP 4. PAFIB: maintaining SR 5. HTN: controlled 6. Obesity Recommendations 1. Baseline TTE. No noted past ischemic w/u. Will obtain outpt stress test for further risk stratificaation given his AFIB and associated risk factors 2. Continue amiodarone and eliquis. Continue with home BP regimen 3. If TTE is unremarkable then may DC from cardiac standpoint and follow up in 4 weeks. PAT HERNDON APRN May 21, 2020 11:32
--- NOTE | 2020-05-21 13:49 | NUR ---
SS following for discharge planning. SS reviewed pt chart and discussed with pt RN. Pt is from home with spouse and is currently on room air. SS will continue to follow for discharge planning.
--- NOTE | 2020-05-21 14:33 | PDOC1 ---
History and Physical Date of Admission Date of Admission DATE: 05/21/20 TIME: 14:12 Identification/Chief Complaint Chief Complaint Jaw pain Source Source: Patient History of Present Illness History of Present Illness Patient is a 70-year-old male who presents with complaints of right-sided jaw pain for 1 day. Patient reports jaw pain, 10/10, aggravated by chewing, with associated right-sided jaw swelling. Patient said his symptoms improved spontaneously. He denies any trauma or history of similar symptoms. He specifically denies any chest pain dysuria or pain with swallowing. Past Medical History Cardiovascular: AFIB (past cardioversion), HTN Pulmonary: No pertinent hx CENTRAL NERVOUS SYSTEM: CVA GI: Other (polyp) Heme/Onc: Anemia NOS Hepatobiliary: No pertinent hx Psych: No pertinent hx Musculoskeletal: low back pain (sciatica), Osteoarthritis Rheumatologic: No pertinent hx Infectious disease: No pertinent hx ENT: No pertinent hx Renal/: Benign prostatic enlarg. Endocrine: No pertinent hx Dermatology: No pertinent hx Past Surgical History Past Surgical History: Arthroscopy (right knee), Other (left eye surgery) Family History Family History: Coronary Artery Disease, Hypertension Social History Smoke: No ALCOHOL: none Drugs: Marijuana Current Problem List Problem List Problems Medical Problems: (1) Acute UTI Status: Acute (2) Atrial fibrillation Status: Acute (3) Chest pain Status: Acute (4) Hypertension Status: Acute Current Medications Current Medications Current Medications Acetaminophen/ Hydrocodone Bitart (Lortab 5/325) 1 tab 1X ONCE PO Last administered on 05/20/20at 21:41; Start 05/20/20 at 21:45; Stop 05/20/20 at 21:46; Status DC Iohexol (Omnipaque 300 Mg/ml) 70 ml 1X ONCE IV ; Start 05/20/20 at 22:45; Stop 05/20/20 at 22:46; Status DC Info (CONTRAST GIVEN -- Rx MONITORING) 1 each PRN DAILY PRN MC SEE COMMENTS; Start 05/20/20 at 22:45; Stop 05/22/20 at 22:44 Ceftriaxone Sodium (Rocephin) 1 gm 1X ONCE IVP Last administered on 05/20/20at 23:53; Start 05/20/20 at 23:15; Stop 05/20/20 at 23:16; Status DC Aspirin (Aspirin Chewable) 324 mg 1X ONCE PO Last administered on 05/20/20at 23:54; Start 05/20/20 at 23:45; Stop 05/20/20 at 23:54; Status DC Active Scripts Active Excedrin Migraine Caplet (Aspirin/Acetaminophen/Caffeine) 1 Each Tablet 1 Each PO Q6-8HRS PRN Ibuprofen 400 Mg Tablet 1 Tab PO PRN Q6HRS Reported Amiodarone Hcl 200 Mg Tablet 200 Mg PO DAILY Ferrous Sulfate 325 Mg Tablet.dr 325 Mg PO DAILY Eliquis (Apixaban) 5 Mg Tablet 5 Mg PO BID Lisinopril-Hctz 20-12.5 Mg Tab (Lisinopril/Hydrochlorothiazide) 1 Each Tablet 1 Tab PO DAILY Amlodipine Besylate 5 Mg Tablet 1 Tab PO DAILY Allergies Allergies: Coded Allergies: No Known Drug Allergies (Unverified , 05/06/15) ROS General: No: Night Sweats, Fatigue, Malaise, Appetite, Other PSYCHOLOGICAL ROS: No: Anxiety, Behavioral Disorder, Concentration difficultie, Decreased libido, Depression, Disorientation, Hallucinations, Hostility, Irritablity, Memory difficulties, Mood Swings, Obsessive thoughts, Physical abuse, Sexual abuse, Sleep disturbances, Suicidal ideation, Other Eyes: No Blurry vision, No Decreased vision, No Double vision, No Dry eyes, No Excessive tearing, No Eye Pain, No Itchy Eyes, No Loss of vision, No Photophobia, No Scotomata, No Uses contacts, No Uses glasses, No Other HEENT: YES: Other (Right jawpain, right jaw swelling); No: Heacaches, Visual Changes, Nasal congestion, Sore Throat ALLERGY AND IMMUNOLOGY: No: Nasal Congestion Respiratory: No: Cough, Hemoptysis, Orthopnea, Pleuritic Pain, Shortness of breath, SOB with excertion, Sputum Changes, Stridor, Tachypnea, Wheezing, Other Cardiovascular: No Chest Pain, No Palpitations, No Orthopnea, No Paroxysmal Noc. Dyspnea, No Edema, No Lt Headedness, No Other Gastrointestinal: No Nausea, No Vomiting, No Abdominal Pain, No Diarrhea, No Constipation, No Melena, No Hematochezia, No Other Musculoskeletal: Yes Pain In: (Right jaw), Yes Swelling In: (Right jaw); No Gait Disturbance, No Joint Stiffness, No Muscle Pain, No Muscular Weakness, No Other Neurological: No Behavorial Changes, No Bowel/Bladder ControlChng, No Confusion, No Dizziness, No Gait Disturbance, No Headaches, No Impaired Coord/balance, No Memory Loss, No Numbness/Tingling, No Seizures, No Speech Problems, No Tremors, No Visual Changes, No Weakness, No Other Skin: No Dry Skin, No Eczema, No Hair Changes, No Lumps, No Mole Changes, No Mottling, No Nail Changes, No Pruritus, No Rash, No Skin Lesion Changes, No Other, No Acne Physical Exam General: Alert, Oriented X3, Cooperative, No acute distress HEENT: PERRLA Lungs: Clear to auscultation, Normal air movement Heart: no rubs, no murmurs Cardiovascular: S1, S2 Abdomen: Normal bowel sounds, Soft, No tenderness, No hepatosplenomegaly, No masses Extremities: No clubbing, No cyanosis, No edema, Normal pulses, No tenderness/swelling Skin: No rashes, No breakdown, No significant lesion Neuro: Normal gait, Normal speech, Strength at 5/5 X4 ext, Normal tone, Sensation intact, Cranial nerves 3-12 NL, Reflexes 2+ Psych/Mental Status: Mental status NL, Mood NL Vitals Vitals Vital Signs Date Time Temp Pulse Resp B/P (MAP) Pulse Ox O2 Delivery O2 Flow Rate FiO2 05/21/20 11:09 98.2 75 18 154/79 (104) 95 Room Air 98.2 Labs Labs Laboratory Tests Test 05/20/20 19:37 05/20/20 19:51 05/21/20 03:28 White Blood Count 16.9 x10^3/uL (4.0-11.0) 15.7 x10^3/uL (4.0-11.0) Red Blood Count 4.27 x10^6/uL (4.30-5.70) 3.90 x10^6/uL (4.30-5.70) Hemoglobin 14.0 g/dL (13.0-17.5) 13.0 g/dL (13.0-17.5) Hematocrit 40.9 % (39.0-53.0) 37.4 % (39.0-53.0) Mean Corpuscular Volume 96 fL (79-100) 96 fL (79-100) Mean Corpuscular Hemoglobin 33 pg (25-35) 33 pg (25-35) Mean Corpuscular Hemoglobin Concent 34 g/dL (31-37) 35 g/dL (31-37) Red Cell Distribution Width 14.6 % (11.5-14.5) 14.4 % (11.5-14.5) Platelet Count 263 x10^3/uL (140-400) 243 x10^3/uL (140-400) Neutrophils (%) (Auto) 94 % (31-73) 87 % (31-73) Lymphocytes (%) (Auto) 4 % (24-48) 7 % (24-48) Monocytes (%) (Auto) 1 % (0-9) 5 % (0-9) Eosinophils (%) (Auto) 1 % (0-3) 0 % (0-3) Basophils (%) (Auto) 0 % (0-3) 0 % (0-3) Neutrophils # (Auto) 15.9 x10^3/uL (1.8-7.7) 13.7 x10^3/uL (1.8-7.7) Lymphocytes # (Auto) 0.7 x10^3/uL (1.0-4.8) 1.1 x10^3/uL (1.0-4.8) Monocytes # (Auto) 0.1 x10^3/uL (0.0-1.1) 0.8 x10^3/uL (0.0-1.1) Eosinophils # (Auto) 0.1 x10^3/uL (0.0-0.7) 0.1 x10^3/uL (0.0-0.7) Basophils # (Auto) 0.1 x10^3/uL (0.0-0.2) 0.0 x10^3/uL (0.0-0.2) Segmented Neutrophils % 92 % (35-66) Band Neutrophils % 2 % (0-9) Lymphocytes % 4 % (24-48) Monocytes % 2 % (0-10) Platelet Estimate Adequate (ADEQUATE) Sodium Level 141 mmol/L (136-145) 141 mmol/L (136-145) Potassium Level 3.3 mmol/L (3.5-5.1) 3.7 mmol/L (3.5-5.1) Chloride Level 105 mmol/L (98-107) 105 mmol/L (98-107) Carbon Dioxide Level 26 mmol/L (21-32) 28 mmol/L (21-32) Anion Gap 10 (6-14) 8 (6-14) Blood Urea Nitrogen 17 mg/dL (8-26) 15 mg/dL (8-26) Creatinine 1.4 mg/dL (0.7-1.3) 1.3 mg/dL (0.7-1.3) Estimated GFR (Cockcroft-Gault) 60.8 66.2 BUN/Creatinine Ratio 12 (6-20) Glucose Level 133 mg/dL (70-99) 105 mg/dL (70-99) Calcium Level 9.2 mg/dL (8.5-10.1) 8.5 mg/dL (8.5-10.1) Total Bilirubin 1.0 mg/dL (0.2-1.0) Aspartate Amino Transf (AST/SGOT) 5 U/L (15-37) Alanine Aminotransferase (ALT/SGPT) 20 U/L (16-63) Alkaline Phosphatase 49 U/L (46-116) Troponin I Quantitative < 0.017 ng/mL (0.000-0.055) 0.020 ng/mL (0.000-0.055) OF-Rmt-K-Type Natriuretic Peptide 205 pg/mL (0-124) Total Protein 7.7 g/dL (6.4-8.2) Albumin 3.3 g/dL (3.4-5.0) Albumin/Globulin Ratio 0.8 (1.0-1.7) Urine Collection Type Unknown Urine Color Soo Urine Clarity Cloudy Urine pH 5.5 (<5.0-8.0) Urine Specific [place] 1.020 (1.000-1.030) Urine Protein 100 mg/dL (NEG-TRACE) Urine Glucose (UA) Negative mg/dL (NEG) Urine Ketones (Stick) Negative mg/dL (NEG) Urine Blood Large (NEG) Urine Nitrite Positive (NEG) Urine Bilirubin Negative (NEG) Urine Urobilinogen Dipstick 1.0 mg/dL (0.2 mg/dL) Urine Leukocyte Esterase Large (NEG) Urine RBC >40 /HPF (0-2) Urine WBC Tntc /HPF (0-4) Urine Squamous Epithelial Cells Occ /LPF Urine Bacteria Many /HPF (0-FEW) Triglycerides Level 72 mg/dL (0-150) Cholesterol Level 131 mg/dL (0-200) LDL Cholesterol, Calculated 78 mg/dL (0-100) VLDL Cholesterol, Calculated 14 mg/dL (0-40) Non-HDL Cholesterol Calculated 92 mg/dL (0-129) HDL Cholesterol 39 mg/dL (40-60) Cholesterol/HDL Ratio 3.4 Thyroid Stimulating Hormone (TSH) 0.471 uIU/mL (0.358-3.74) Laboratory Tests Test 05/20/20 19:37 05/20/20 19:51 05/21/20 03:28 White Blood Count 16.9 x10^3/uL (4.0-11.0) 15.7 x10^3/uL (4.0-11.0) Red Blood Count 4.27 x10^6/uL (4.30-5.70) 3.90 x10^6/uL (4.30-5.70) Hemoglobin 14.0 g/dL (13.0-17.5) 13.0 g/dL (13.0-17.5) Hematocrit 40.9 % (39.0-53.0) 37.4 % (39.0-53.0) Mean Corpuscular Volume 96 fL (79-100) 96 fL (79-100) Mean Corpuscular Hemoglobin 33 pg (25-35) 33 pg (25-35) Mean Corpuscular Hemoglobin Concent 34 g/dL (31-37) 35 g/dL (31-37) Red Cell Distribution Width 14.6 % (11.5-14.5) 14.4 % (11.5-14.5) Platelet Count 263 x10^3/uL (140-400) 243 x10^3/uL (140-400) Neutrophils (%) (Auto) 94 % (31-73) 87 % (31-73) Lymphocytes (%) (Auto) 4 % (24-48) 7 % (24-48) Monocytes (%) (Auto) 1 % (0-9) 5 % (0-9) Eosinophils (%) (Auto) 1 % (0-3) 0 % (0-3) Basophils (%) (Auto) 0 % (0-3) 0 % (0-3) Neutrophils # (Auto) 15.9 x10^3/uL (1.8-7.7) 13.7 x10^3/uL (1.8-7.7) Lymphocytes # (Auto) 0.7 x10^3/uL (1.0-4.8) 1.1 x10^3/uL (1.0-4.8) Monocytes # (Auto) 0.1 x10^3/uL (0.0-1.1) 0.8 x10^3/uL (0.0-1.1) Eosinophils # (Auto) 0.1 x10^3/uL (0.0-0.7) 0.1 x10^3/uL (0.0-0.7) Basophils # (Auto) 0.1 x10^3/uL (0.0-0.2) 0.0 x10^3/uL (0.0-0.2) Segmented Neutrophils % 92 % (35-66) Band Neutrophils % 2 % (0-9) Lymphocytes % 4 % (24-48) Monocytes % 2 % (0-10) Platelet Estimate Adequate (ADEQUATE) Sodium Level 141 mmol/L (136-145) 141 mmol/L (136-145) Potassium Level 3.3 mmol/L (3.5-5.1) 3.7 mmol/L (3.5-5.1) Chloride Level 105 mmol/L (98-107) 105 mmol/L (98-107) Carbon Dioxide Level 26 mmol/L (21-32) 28 mmol/L (21-32) Anion Gap 10 (6-14) 8 (6-14) Blood Urea Nitrogen 17 mg/dL (8-26) 15 mg/dL (8-26) Creatinine 1.4 mg/dL (0.7-1.3) 1.3 mg/dL (0.7-1.3) Estimated GFR (Cockcroft-Gault) 60.8 66.2 BUN/Creatinine Ratio 12 (6-20) Glucose Level 133 mg/dL (70-99) 105 mg/dL (70-99) Calcium Level 9.2 mg/dL (8.5-10.1) 8.5 mg/dL (8.5-10.1) Total Bilirubin 1.0 mg/dL (0.2-1.0) Aspartate Amino Transf (AST/SGOT) 5 U/L (15-37) Alanine Aminotransferase (ALT/SGPT) 20 U/L (16-63) Alkaline Phosphatase 49 U/L (46-116) Troponin I Quantitative < 0.017 ng/mL (0.000-0.055) 0.020 ng/mL (0.000-0.055) RG-Nni-D-Type Natriuretic Peptide 205 pg/mL (0-124) Total Protein 7.7 g/dL (6.4-8.2) Albumin 3.3 g/dL (3.4-5.0) Albumin/Globulin Ratio 0.8 (1.0-1.7) Urine Collection Type Unknown Urine Color Soo Urine Clarity Cloudy Urine pH 5.5 (<5.0-8.0) Urine Specific [place] 1.020 (1.000-1.030) Urine Protein 100 mg/dL (NEG-TRACE) Urine Glucose (UA) Negative mg/dL (NEG) Urine Ketones (Stick) Negative mg/dL (NEG) Urine Blood Large (NEG) Urine Nitrite Positive (NEG) Urine Bilirubin Negative (NEG) Urine Urobilinogen Dipstick 1.0 mg/dL (0.2 mg/dL) Urine Leukocyte Esterase Large (NEG) Urine RBC >40 /HPF (0-2) Urine WBC Tntc /HPF (0-4) Urine Squamous Epithelial Cells Occ /LPF Urine Bacteria Many /HPF (0-FEW) Triglycerides Level 72 mg/dL (0-150) Cholesterol Level 131 mg/dL (0-200) LDL Cholesterol, Calculated 78 mg/dL (0-100) VLDL Cholesterol, Calculated 14 mg/dL (0-40) Non-HDL Cholesterol Calculated 92 mg/dL (0-129) HDL Cholesterol 39 mg/dL (40-60) Cholesterol/HDL Ratio 3.4 Thyroid Stimulating Hormone (TSH) 0.471 uIU/mL (0.358-3.74) VTE Prophylaxis Ordered VTE Prophylaxis Devices: Yes VTE Pharmacological Prophylaxi: No Assessment/Plan Assessment/Plan Plan: Patient initially admitted for evaluation of possible acute coronary syndrome. Discussed patient with cardiology, states patient can be evaluated with outpatient stress test and no further work-up was necessary. Patient reports resolution in his jaw pain and swelling. He is able to chew without pain and tolerating normal diet. Spectral pain was secondary to a sialolithiasis, as the distribution of his pain was over his right salivary gland. This appears to have resolved. He denies any difficulty swallowing he denies any dysuria. Urinalysis shows asymptomatic bacteriuria, that does not require treatment. Stable for discharge. DANIELA WREN MD May 21, 2020 14:33
--- NOTE | 2020-05-21 14:44 | PDOC3 ---
Discharge Summary Visit Information Date of Admission: May 21, 2020 Date of Discharge: May 21, 2020 Final Diagnosis Problems Medical Problems (1) Jaw pain Status: Acute Brief Hospital Course Allergies Allergies Coded Allergies Type Severity Reaction Last Updated Verified No Known Drug Allergies 05/06/15 No Vital Signs Vital Signs Date Time Temp Pulse Resp B/P (MAP) Pulse Ox O2 Delivery O2 Flow Rate FiO2 05/21/20 11:09 98.2 75 18 154/79 (104) 95 Room Air 98.2 Lab Results Laboratory Tests Test 05/20/20 19:37 05/20/20 19:51 05/21/20 03:28 White Blood Count 16.9 x10^3/uL (4.0-11.0) 15.7 x10^3/uL (4.0-11.0) Red Blood Count 4.27 x10^6/uL (4.30-5.70) 3.90 x10^6/uL (4.30-5.70) Hemoglobin 14.0 g/dL (13.0-17.5) 13.0 g/dL (13.0-17.5) Hematocrit 40.9 % (39.0-53.0) 37.4 % (39.0-53.0) Mean Corpuscular Volume 96 fL (79-100) 96 fL (79-100) Mean Corpuscular Hemoglobin 33 pg (25-35) 33 pg (25-35) Mean Corpuscular Hemoglobin Concent 34 g/dL (31-37) 35 g/dL (31-37) Red Cell Distribution Width 14.6 % (11.5-14.5) 14.4 % (11.5-14.5) Platelet Count 263 x10^3/uL (140-400) 243 x10^3/uL (140-400) Neutrophils (%) (Auto) 94 % (31-73) 87 % (31-73) Lymphocytes (%) (Auto) 4 % (24-48) 7 % (24-48) Monocytes (%) (Auto) 1 % (0-9) 5 % (0-9) Eosinophils (%) (Auto) 1 % (0-3) 0 % (0-3) Basophils (%) (Auto) 0 % (0-3) 0 % (0-3) Neutrophils # (Auto) 15.9 x10^3/uL (1.8-7.7) 13.7 x10^3/uL (1.8-7.7) Lymphocytes # (Auto) 0.7 x10^3/uL (1.0-4.8) 1.1 x10^3/uL (1.0-4.8) Monocytes # (Auto) 0.1 x10^3/uL (0.0-1.1) 0.8 x10^3/uL (0.0-1.1) Eosinophils # (Auto) 0.1 x10^3/uL (0.0-0.7) 0.1 x10^3/uL (0.0-0.7) Basophils # (Auto) 0.1 x10^3/uL (0.0-0.2) 0.0 x10^3/uL (0.0-0.2) Segmented Neutrophils % 92 % (35-66) Band Neutrophils % 2 % (0-9) Lymphocytes % 4 % (24-48) Monocytes % 2 % (0-10) Platelet Estimate Adequate (ADEQUATE) Sodium Level 141 mmol/L (136-145) 141 mmol/L (136-145) Potassium Level 3.3 mmol/L (3.5-5.1) 3.7 mmol/L (3.5-5.1) Chloride Level 105 mmol/L (98-107) 105 mmol/L (98-107) Carbon Dioxide Level 26 mmol/L (21-32) 28 mmol/L (21-32) Anion Gap 10 (6-14) 8 (6-14) Blood Urea Nitrogen 17 mg/dL (8-26) 15 mg/dL (8-26) Creatinine 1.4 mg/dL (0.7-1.3) 1.3 mg/dL (0.7-1.3) Estimated GFR (Cockcroft-Gault) 60.8 66.2 BUN/Creatinine Ratio 12 (6-20) Glucose Level 133 mg/dL (70-99) 105 mg/dL (70-99) Calcium Level 9.2 mg/dL (8.5-10.1) 8.5 mg/dL (8.5-10.1) Total Bilirubin 1.0 mg/dL (0.2-1.0) Aspartate Amino Transf (AST/SGOT) 5 U/L (15-37) Alanine Aminotransferase (ALT/SGPT) 20 U/L (16-63) Alkaline Phosphatase 49 U/L (46-116) Troponin I Quantitative < 0.017 ng/mL (0.000-0.055) 0.020 ng/mL (0.000-0.055) VS-Mtc-C-Type Natriuretic Peptide 205 pg/mL (0-124) Total Protein 7.7 g/dL (6.4-8.2) Albumin 3.3 g/dL (3.4-5.0) Albumin/Globulin Ratio 0.8 (1.0-1.7) Urine Collection Type Unknown Urine Color Soo Urine Clarity Cloudy Urine pH 5.5 (<5.0-8.0) Urine Specific [place] 1.020 (1.000-1.030) Urine Protein 100 mg/dL (NEG-TRACE) Urine Glucose (UA) Negative mg/dL (NEG) Urine Ketones (Stick) Negative mg/dL (NEG) Urine Blood Large (NEG) Urine Nitrite Positive (NEG) Urine Bilirubin Negative (NEG) Urine Urobilinogen Dipstick 1.0 mg/dL (0.2 mg/dL) Urine Leukocyte Esterase Large (NEG) Urine RBC >40 /HPF (0-2) Urine WBC Tntc /HPF (0-4) Urine Squamous Epithelial Cells Occ /LPF Urine Bacteria Many /HPF (0-FEW) Triglycerides Level 72 mg/dL (0-150) Cholesterol Level 131 mg/dL (0-200) LDL Cholesterol, Calculated 78 mg/dL (0-100) VLDL Cholesterol, Calculated 14 mg/dL (0-40) Non-HDL Cholesterol Calculated 92 mg/dL (0-129) HDL Cholesterol 39 mg/dL (40-60) Cholesterol/HDL Ratio 3.4 Thyroid Stimulating Hormone (TSH) 0.471 uIU/mL (0.358-3.74) Laboratory Tests Test 05/20/20 19:37 05/20/20 19:51 05/21/20 03:28 White Blood Count 16.9 x10^3/uL (4.0-11.0) 15.7 x10^3/uL (4.0-11.0) Red Blood Count 4.27 x10^6/uL (4.30-5.70) 3.90 x10^6/uL (4.30-5.70) Hemoglobin 14.0 g/dL (13.0-17.5) 13.0 g/dL (13.0-17.5) Hematocrit 40.9 % (39.0-53.0) 37.4 % (39.0-53.0) Mean Corpuscular Volume 96 fL (79-100) 96 fL (79-100) Mean Corpuscular Hemoglobin 33 pg (25-35) 33 pg (25-35) Mean Corpuscular Hemoglobin Concent 34 g/dL (31-37) 35 g/dL (31-37) Red Cell Distribution Width 14.6 % (11.5-14.5) 14.4 % (11.5-14.5) Platelet Count 263 x10^3/uL (140-400) 243 x10^3/uL (140-400) Neutrophils (%) (Auto) 94 % (31-73) 87 % (31-73) Lymphocytes (%) (Auto) 4 % (24-48) 7 % (24-48) Monocytes (%) (Auto) 1 % (0-9) 5 % (0-9) Eosinophils (%) (Auto) 1 % (0-3) 0 % (0-3) Basophils (%) (Auto) 0 % (0-3) 0 % (0-3) Neutrophils # (Auto) 15.9 x10^3/uL (1.8-7.7) 13.7 x10^3/uL (1.8-7.7) Lymphocytes # (Auto) 0.7 x10^3/uL (1.0-4.8) 1.1 x10^3/uL (1.0-4.8) Monocytes # (Auto) 0.1 x10^3/uL (0.0-1.1) 0.8 x10^3/uL (0.0-1.1) Eosinophils # (Auto) 0.1 x10^3/uL (0.0-0.7) 0.1 x10^3/uL (0.0-0.7) Basophils # (Auto) 0.1 x10^3/uL (0.0-0.2) 0.0 x10^3/uL (0.0-0.2) Segmented Neutrophils % 92 % (35-66) Band Neutrophils % 2 % (0-9) Lymphocytes % 4 % (24-48) Monocytes % 2 % (0-10) Platelet Estimate Adequate (ADEQUATE) Sodium Level 141 mmol/L (136-145) 141 mmol/L (136-145) Potassium Level 3.3 mmol/L (3.5-5.1) 3.7 mmol/L (3.5-5.1) Chloride Level 105 mmol/L (98-107) 105 mmol/L (98-107) Carbon Dioxide Level 26 mmol/L (21-32) 28 mmol/L (21-32) Anion Gap 10 (6-14) 8 (6-14) Blood Urea Nitrogen 17 mg/dL (8-26) 15 mg/dL (8-26) Creatinine 1.4 mg/dL (0.7-1.3) 1.3 mg/dL (0.7-1.3) Estimated GFR (Cockcroft-Gault) 60.8 66.2 BUN/Creatinine Ratio 12 (6-20) Glucose Level 133 mg/dL (70-99) 105 mg/dL (70-99) Calcium Level 9.2 mg/dL (8.5-10.1) 8.5 mg/dL (8.5-10.1) Total Bilirubin 1.0 mg/dL (0.2-1.0) Aspartate Amino Transf (AST/SGOT) 5 U/L (15-37) Alanine Aminotransferase (ALT/SGPT) 20 U/L (16-63) Alkaline Phosphatase 49 U/L (46-116) Troponin I Quantitative < 0.017 ng/mL (0.000-0.055) 0.020 ng/mL (0.000-0.055) NT-Ixc-Z-Type Natriuretic Peptide 205 pg/mL (0-124) Total Protein 7.7 g/dL (6.4-8.2) Albumin 3.3 g/dL (3.4-5.0) Albumin/Globulin Ratio 0.8 (1.0-1.7) Urine Collection Type Unknown Urine Color Soo Urine Clarity Cloudy Urine pH 5.5 (<5.0-8.0) Urine Specific [place] 1.020 (1.000-1.030) Urine Protein 100 mg/dL (NEG-TRACE) Urine Glucose (UA) Negative mg/dL (NEG) Urine Ketones (Stick) Negative mg/dL (NEG) Urine Blood Large (NEG) Urine Nitrite Positive (NEG) Urine Bilirubin Negative (NEG) Urine Urobilinogen Dipstick 1.0 mg/dL (0.2 mg/dL) Urine Leukocyte Esterase Large (NEG) Urine RBC >40 /HPF (0-2) Urine WBC Tntc /HPF (0-4) Urine Squamous Epithelial Cells Occ /LPF Urine Bacteria Many /HPF (0-FEW) Triglycerides Level 72 mg/dL (0-150) Cholesterol Level 131 mg/dL (0-200) LDL Cholesterol, Calculated 78 mg/dL (0-100) VLDL Cholesterol, Calculated 14 mg/dL (0-40) Non-HDL Cholesterol Calculated 92 mg/dL (0-129) HDL Cholesterol 39 mg/dL (40-60) Cholesterol/HDL Ratio 3.4 Thyroid Stimulating Hormone (TSH) 0.471 uIU/mL (0.358-3.74) Brief Hospital Course Mr. Mike is a 70 old male who presented with right-sided jaw pain and associated swelling present for less than 1 day. Patient's pain and swelling resolved spontaneously. Consultations were placed to cardiology. It was deemed that patient's jaw pain was likely not due to cardiac etiology, but probable sialolithiasis. Asymptomatic bacteria seen on urinalysis, this does not require treatment. Patient stable for discharge. Discharge Information Follow Up: As Needed Disposition/Orders: D/C to Home Scheduled Amiodarone Hcl (Amiodarone Hcl) 200 Mg Tablet, 200 MG PO DAILY for , (Reported) Entered as Reported by: BONNIE CASTAÑEDA RN on 05/21/20103 Last Action: Reviewed on 05/21/20154 by Niurka Arguello Amlodipine Besylate (Amlodipine Besylate) 5 Mg Tablet, 1 TAB PO DAILY, #30 Ref 5 (Reported) Entered as Reported by: CLYDE DARNELL on 10/31/141043 Last Action: Reviewed on 05/21/20154 by Niurka Arguello Apixaban (Eliquis) 5 Mg Tablet, 5 MG PO BID for , (Reported) Entered as Reported by: BONNIE CASTAÑEDA RN on 05/21/20103 Last Action: Reviewed on 05/21/20154 by Niurka Arguello Ferrous Sulfate (Ferrous Sulfate) 325 Mg Tablet., 325 MG PO DAILY for , (Reported) Entered as Reported by: BONNIE CASTAÑEDA RN on 05/21/20103 Last Action: Reviewed on 05/21/20154 by Niurka Arguello Ibuprofen (Ibuprofen) 400 Mg Tablet, 1 TAB PO PRN Q6HRS, #20 Ref 1 Prescribed by: ANA CRISTINA BAHENA on 11/28/14 1353 Last Action: Reviewed on 05/21/20154 by Niurka Arguello Lisinopril/Hydrochlorothiazide (Lisinopril-Hctz 20-12.5 Mg Tab) 1 Each Tablet, 1 TAB PO DAILY, #30 Ref 5 (Reported) Entered as Reported by: DARCY SANTOS on 05/22/16 1946 Last Action: Reviewed on 05/21/20154 by Niurka Arguello Scheduled PRN Aspirin/Acetaminophen/Caffeine (Excedrin Migraine Caplet) 1 Each Tablet, 1 EACH PO Q6-8HRS PRN for PAIN, #30 Prescribed by: EZRA VILLALPANDO on 05/24/16 1016 Last Action: Reviewed on 05/21/20154 by Niurka Arguello Justicifation of Admission Dx: Justifications for Admission: Justification of Admission Dx: Yes Angina: Cresendo Worsening of Sym DANIELA WREN MD May 21, 2020 14:44
[2020-05-21 15:05] VITALS: BP 149/71
--- NOTE | 2020-05-21 15:45 | NUR ---
Discharge Note: CAIO KNOX Discharge instructions and discharge home medications reviewed with Patient and a copy given. All questions have been answered and understanding verbalized. The following instructions and handouts were given: chest pain Discontinued lines and drains: Peripheral IV intact. Patient discharged to Home or Self Care withSelfvia Wheelchair
== END 2020-05-21 15:45 | disposition home or self-care (01) | DRG 155 ==
LOC: ER 18:47 → 2 NORTH 23:53
PROVIDERS: ADMIT Internal Medicine; ATTEND Internal Medicine
DX: K11.5 Sialolithiasis (principal); N39.0 Urinary tract infection, site not specified; E66.9 Obesity, unspecified; Z68.38 Body mass index [BMI] 38.0-38.9, adult; E78.5 Hyperlipidemia, unspecified; I10 Essential (primary) hypertension; I48.0 Paroxysmal atrial fibrillation; R13.10 Dysphagia, unspecified; M54.5 Low back pain; M19.90 Unspecified osteoarthritis, unspecified site; R07.89 Other chest pain; Z82.49 Family history of ischemic heart disease and other diseases of the circulatory system; Z86.73 Personal history of transient ischemic attack (TIA), and cerebral infarction without residual deficits; Z87.891 Personal history of nicotine dependence
CPT/HCPCS: 36415; 70491; 71046; 80048; 80053; 80061; 81001; 83880; 84443; 84484; 85007; 85025; 87077; 87086; 87186; 93005; 96374; J0696; 99285-25; G0378

== ENCOUNTER → 2020-11-19 | Outpatient (CLI) | payer MEDICARE ==
[~2020-11-19] MED LIST changes: -AMIO200T4 PO; +AMIO200T6 PO; +AMLO-186 PO; -AMLO5TAB10 PO; +APIX5TAB PO; +FERR325T3 PO; -LISI-334 PO; +LISI20TA18 PO
--- NOTE | 2020-11-19 12:57 | CARD ---
MR#: [id number] Date of Study: 11/19/2020 Ordering Physician: DALLAS DELGADO, Referring Physician: DALLAS DELGADO, Tech: Hina Ayala, [facility] APPROVED REPORT EXAM: Two-dimensional and M-mode echocardiogram with Doppler and color Doppler. Other Information Quality : AverageHR: 61bpm Technically limited study due to body habitus and smoking INDICATION Atrial Fibrillation RISK FACTORS Hypertension Smoking 2D DIMENSIONS RVDd4.2 (2.9-3.5cm)Left Atrium(2D)3.4 (1.6-4.0cm) IVSd1.2 (0.7-1.1cm)Aortic Root(2D)3.6 (2.0-3.7cm) LVDd5.4 (3.9-5.9cm)LVOT Diameter2.2 (1.8-2.4cm) PWd1.2 (0.7-1.1cm)LVDs2.7 (2.5-4.0cm) FS (%) 49.1 %SV112.8 ml LVEF(%)60.0 (>50%) Aortic Valve AoV Peak Kamran.148.0cm/sAoV VTI31.1cm AO Peak GR.8.8mmHgLVOT Peak Kamran.124.9cm/s LVOT VTI 27.30cmAO Mean GR.5mmHg REGULO (VMAX)2.61hz6KAP (VTI)3.46cm2 Mitral Valve MV E Dvpygtxg734.0cm/sMV DECEL OBWZ250kh MV A Myjygymt19.7cm/sMV VMM95yh E/A Ratio1.3MVA (PHT)4.21cm2 TDI E/Lateral E'9.0E/Medial E'11.4 Pulmonary Valve PV Peak Xocjrifh77.5cm/sPV Peak Grad.3mmHg Tricuspid Valve TR P. Jhixyrcc933xf/sRAP XXRMDGRJ2zbRh TR Peak Gr.69ldFkBSTN82ifPz Pulmonary Vein S1 Vriixkrl87.6cm/sD2 Sclafcuy55.4cm/s PVa jujwayiw288dnmc LEFT VENTRICLE The left ventricle is normal size. There is mild to moderate concentric left ventricular hypertrophy. The left ventricular systolic function is normal and the ejection fraction is within normal range. T he Ejection Fraction is 55%. There is normal LV segmental wall motion. Transmitral Doppler flow patte rn is Grade II-pseudonormal filling dynamics. RIGHT VENTRICLE The right ventricle is mildly dilated. There is normal right ventricular wall thickness. The right ve ntricular systolic function is normal. ATRIA The left atrium is mildly dilated. The right atrium is borderline dilated. The interatrial septum is intact with no evidence for an atrial septal defect or patent foramen ovale as noted on 2-D or Dopple r imaging. AORTIC VALVE The aortic valve is normal in structure and function. Doppler and Color Flow revealed no significant aortic regurgitation. There is no significant aortic valvular stenosis. Calculated aortic valve area is 3.49 cm2 with maximum pressure gradient of 10 mmHg and mean pressure gradient of 6 mmHg. MITRAL VALVE The mitral valve is normal in structure and function. There is no evidence of mitral valve prolapse. There is no mitral valve stenosis. Doppler and Color-flow revealed trace mitral regurgitation. TRICUSPID VALVE The tricuspid valve is normal in structure and function. Doppler and Color Flow revealed trace tricus pid regurgitation with an estimated PAP of 35 mmHg. There is no tricuspid valve stenosis. PULMONIC VALVE The pulmonic valve is not well visualized. Doppler and Color Flow revealed trace pulmonic valvular re gurgitation. There is no pulmonic valvular stenosis. GREAT VESSELS The aortic root is normal in size. The ascending aorta is Mildly dilated measuring 3.9 cm. The IVC is normal in size and collapses >50% with inspiration. PERICARDIAL EFFUSION There is no evidence of significant pericardial effusion. Critical Notification Critical Value: No <Conclusion> The left ventricular systolic function is normal and the ejection fraction is within normal range. Th e Ejection Fraction is 55%. There is normal LV segmental wall motion. The right ventricle is mildly dilated. The ascending aorta is Mildly dilated measuring 3.9 cm. Signed by : Feliberto Romero, Electronically Approved : 11/19/2020 12:56:55
== END ==
LOC: ECHO 08:44
PROVIDERS: ATTEND Internal Medicine Cardiovascular Disease
DX: I51.7 Cardiomegaly (principal); I48.0 Paroxysmal atrial fibrillation
CPT/HCPCS: 93306

== ENCOUNTER 2020-12-23 23:02 | Emergency (ER) | payer MEDICARE ==
[~2020-12-23] VITALS: Ht 185.4 cm; Wt 136.3 kg
--- NOTE | 2020-12-23 23:18 | PHYS DOC ---
Past Medical History Past Medical History: A-Fib, Hypertension, Sciatica, Stroke, Other Additional Past Medical Histor: polyp,A FIB W/RVR Past Surgical History: Other Additional Past Surgical Histo: R knee "muscle repair"; colonoscopy, L EYE Smoking Status: Former Smoker Alcohol Use: None Drug Use: Marijuana General Adult EDM: Chief Complaint: MULTIPLE COMPLAINTS HPI: HPI: Patient is a 70 year old [f__sex] who presents with [] Has been weak this is been going on for a few weeks without any inciting event no recent medication changes history of paroxysmal atrial fibrillation on Eliquis daily Review of Systems: Review of Systems: Fourteen body systems of review of systems have been reviewed. See HPI for pertinent positives and negative responses, other yu all other systems are negative, non-pertinent or non-contributory Heart Score: Risk Factors: Risk Factors: DM, Current or recent (<one month) smoker, HTN, HLP, family history of CAD, obesity. Risk Scores: Score 0 - 3: 2.5% MACE over next 6 weeks - Discharge Home Score 4 - 6: 20.3% MACE over next 6 weeks - Admit for Clinical Observation Score 7 - 10: 72.7% MACE over next 6 weeks - Early Invasive Strategies Allergies: Allergies: Allergies Coded Allergies Type Severity Reaction Last Updated Verified No Known Drug Allergies 05/06/15 No Physical Exam: PE: Constitutional: Well developed, well nourished, no acute distress, non-toxic appearance. HENT: Normocephalic, atraumatic, bilateral external ears normal, oropharynx moist, no oral exudates, nose normal. Eyes: PERRLA, EOMI, conjunctiva normal, no discharge. Neck: Normal range of motion, no tenderness, supple, no stridor. Cardiovascular: Heart rate regular, sinus rhythm, no murmurs rubs or gallops Lungs & Thorax: Bilateral breath sounds clear to auscultation Abdomen: Bowel sounds normal, soft, no tenderness, no masses, no pulsatile masses. Nonsurgical abdomen, no peritoneal signs Skin: Warm, dry, no erythema, no rash. Back: No tenderness, no CVA tenderness. Extremities: No tenderness, no cyanosis, no clubbing, ROM intact, no edema. Neurologic: Alert and oriented X 3, grossly normal motor & sensory function, no focal deficits noted. Psychologic: Affect normal, judgement normal, mood normal. EKG: EKG: EKG ordered and interpreted by myself at 2317 hrs. as sinus rhythm at 79 bpm, intervals significant for QTC at 467 otherwise unremarkable, left axis deviation, no acute ischemic findings, no STEMI Radiology/Procedures: Radiology/Procedures: PROCEDURE: CHEST AP ONLY XR CHEST 1V Clinical Indication: Reason: WEAKNESS / Spl. Instructions: / History: Comparison: 2V chest May 20, 2020. Findings: The cardiomediastinal silhouette is normal allowing for portable technique. Lungs are clear. There is no pneumothorax. No pleural effusion is appreciated. No acute bone abnormality. IMPRESSION: No acute cardiopulmonary process. Electronically signed by: Yg Pete MD (12/24/2020 1:02 AM) [facility] Course & Med Decision Making: Course & Med Decision Making Pertinent Labs and Imaging studies reviewed. (See chart for details) [] Dragon Disclaimer: Dragon Disclaimer: This electronic medical record was generated, in whole or in part, using a voice recognition dictation system. Departure Departure Impression: Primary Impression: Fatigue Disposition: 01 DC HOME SELF CARE/HOMELESS Condition: STABLE Referrals: YG GARCIA MD (PCP) Additional Instructions: You were seen for generalized fatigue. Your workup did not show any acute abnormalities today, but does not indicate that you do not have underlying cardiovascular disease. You do need to follow up with your primary doctor for further evaluation and treatment. As discussed, you are likely suffering from untreated sleep apnea, I recommend you have updated sleep study performed as you would likely benefit from CPAP/BiPAP use at night. You should return to the ED if you develop worsening chest pain, shortness of breath, fever, abnormal sweating, leg swelling, or any other new or concerning symptoms. ELIEZER JOHNSON DO Dec 23, 2020 23:18
[2020-12-24 00:15] VITALS: BP 133/64
--- NOTE | 2020-12-24 00:19 | EKG ---
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
[2020-12-24 00:32] LABS: BASO # 0.1 x10^3/uL (0.0-0.2); BASO % 1 % (0-3); EOS # 0.3 x10^3/uL (0.0-0.7); EOS % 4 % (0-3); HEMATOCRIT 41.1 % (39.0-53.0); LYMPH % 27 % (24-48); MEAN CORPUSCULAR HEMOGLOBIN 32 pg (25-35); MEAN CORPUSCULAR HGB CONC 34 g/dL (31-37); MEAN CORPUSCULAR VOLUME 95 fL (79-100); MONO # 0.7 x10^3/uL (0.0-1.1); MONO % 10 % (0-9); NEUT # 4.3 x10^3/uL (1.8-7.7); NEUT % 59 % (31-73); PLATELET COUNT 232 x10^3/uL (140-400); RED BLOOD COUNT 4.32 x10^6/uL (4.30-5.70); RED CELL DISTRIBUTION WIDTH 14.5 % (11.5-14.5); WHITE BLOOD COUNT 7.3 x10^3/uL (4.0-11.0)
[2020-12-24 00:53] LABS: CALCIUM 8.8 mg/dL (8.5-10.1); CREATININE 1.5 mg/dL (0.7-1.3); GFR 56.1; POTASSIUM 3.7 mmol/L (3.5-5.1)
[2020-12-24 00:59] LABS: ALBUMIN 3.2 g/dL (3.4-5.0); ALBUMIN/GLOBULIN RATIO 0.8 (1.0-1.7); TOTAL BILIRUBIN 0.4 mg/dL (0.2-1.0); TOTAL PROTEIN 7.3 g/dL (6.4-8.2)
--- NOTE | 2020-12-24 01:05 | RAD ---
XR CHEST 1V Clinical Indication: Reason: WEAKNESS / Spl. Instructions: / History: Comparison: 2V chest May 20, 2020. Findings: The cardiomediastinal silhouette is normal allowing for portable technique. Lungs are clear. There is no pneumothorax. No pleural effusion is appreciated. No acute bone abnormality. IMPRESSION: No acute cardiopulmonary process. Electronically signed by: Yg Pete MD (12/24/2020 1:02 AM) [facility]PITALRitchie
== END 2020-12-24 01:52 | disposition home or self-care (01) ==
LOC: ER 23:02
DX: R53.83 Other fatigue (principal); R53.1 Weakness; I48.20 Chronic atrial fibrillation, unspecified; I10 Essential (primary) hypertension; I25.2 Old myocardial infarction; F12.90 Cannabis use, unspecified, uncomplicated; Z98.890 Other specified postprocedural states
CPT/HCPCS: 36415; 71045; 80053; 84484; 85025; 93005; 99283

== ENCOUNTER 2021-04-18 12:50 | Observation (INO) | payer MEDICARE ==
[~2021-04-18] VITALS: Ht 185.4 cm; Wt 145.2 kg
--- NOTE | 2021-04-18 13:20 | PHYS DOC ---
Past Medical History Past Medical History: A-Fib, Hypertension, Sciatica, Stroke, Other Additional Past Medical Histor: polyp,A FIB W/RVR Past Surgical History: Other Additional Past Surgical Histo: R knee "muscle repair"; colonoscopy, L EYE Smoking Status: Former Smoker Alcohol Use: None Drug Use: Marijuana General Adult EDM: Chief Complaint: DIZZY/LIGHT HEADED HPI: HPI: Patient is a 71 year old male who presents with 3 days of intermittent dizziness. He states it is a matter what he does drink just be laying in bed and around his head him and then goes away. He states he is also been having abdominal bloating to his mid abdomen. At this time he denies any pain or dizziness. Patient was here for a MRI scan of his heart on April 01 and they recommended a cardiac cath but he states that Dr. Lipscomb said that he could wait a bit for that. On March 31 patient was here and got a duplex of his bi lateral lower extremities as it seems he was having some claudication issues. That ultrasound came back as no acute findings. Patient denies abdominal pain, diarrhea, constipation, chest pain, increased short of breath, numbness or tingling, focal weakness, vision change, headache, fall, syncope, fevers, cough. He has had both of his Covid vaccinations. Patient has a history of A. fib, a flutter, hypertension, migraines, former smoker, sciatica, heatstroke. Patient is currently on Eliquis, lisinopril/HCTZ, amlodipine, amiodarone, iron supplement. Review of Systems: Review of Systems: Constitutional: Denies fever or chills. [] Eyes: Denies change in visual acuity. [] HENT: Denies nasal congestion or sore throat. [] Respiratory: Denies cough or shortness of breath. [] Cardiovascular: Denies chest pain or edema. [] GI: + Abdominal bloating, denies abdominal pain, nausea, vomiting, bloody stools or diarrhea. [] : Denies dysuria. [] Musculoskeletal: Denies back pain or joint pain. [] Integument: Denies rash. [] Neurologic: Denies headache, focal weakness or sensory changes. + Intermittent dizziness [] Endocrine: Denies polyuria or polydipsia. [] Lymphatic: Denies swollen glands. [] Psychiatric: Denies depression or anxiety. [] Heart Score: C/O Chest Pain: No HEART Score for Chest Pain: HEART Score for Chest Pain Response (Comments) Value History Slighlty/Non-Suspicious 0 ECG Nonspecific Repolarizatio 1 Age > 65 2 Risk Factors 1 or 2 Risk Factors 1 Troponin < Normal Limit 0 Total 4 Risk Factors: Risk Factors: DM, Current or recent (<one month) smoker, HTN, HLP, family his tory of CAD, obesity. Risk Scores: Score 0 - 3: 2.5% MACE over next 6 weeks - Discharge Home Score 4 - 6: 20.3% MACE over next 6 weeks - Admit for Clinical Observation Score 7 - 10: 72.7% MACE over next 6 weeks - Early Invasive Strategies Allergies: Allergies: Allergies Coded Allergies Type Severity Reaction Last Updated Verified No Known Drug Allergies 05/06/15 No Physical Exam: PE: Constitutional: Well developed, well nourished, no acute distress, non-toxic appearance. [] HENT: Normocephalic, atraumatic, bilateral external ears normal, oropharynx moist, no oral exudates, nose normal. [] Eyes: PERRLA, EOMI, conjunctiva normal, no discharge. [] Neck: Normal range of motion, no tenderness, supple, no stridor. [] Cardiovascular:Heart rate regular rhythm, no murmur [] Lungs & Thorax: Bilateral upper breath sounds clear lower diminished to auscultation [] Abdomen: Bowel sounds normal, soft, no tenderness, no masses, no pulsatile masses. [] Skin: Warm, dry, no erythema, no rash. [] Back: No tenderness, no CVA tenderness. [] Extremities: No tenderness, no cyanosis, no clubbing, ROM intact, bilateral lower 1+ edema. [] Neurologic: Alert and oriented X 3, normal motor function, normal sensory function, no focal deficits noted. [] Psychologic: Affect normal, judgement normal, mood normal. [] EKG: EK and read by Dr. Lo is sinus rhythm with ventricular premature complexes and no STEMI Radiology/Procedures: Radiology/Procedures: [] Impression: [facility] [address] [place], [place] [id number] IMAGING REPORT Signed PATIENT: CAIO KNOX ACCOUNT: [id number] : 1950 LOCATION: ER AGE: 71 SEX: M EXAM STATUS: PRE ER ORD. PHYSICIAN: THANG BURCIAGA APRN REASON: BLOATING, PAIN PROCEDURE: CT ABDOMEN PELVIS WO CONTRAST CT scan abdomen and pelvis without contrast 04/18/2021. CLINICAL HISTORY: Bloating. Abdominal pain. TECHNIQUE: Unenhanced, contiguous, 2.5 mm axial sections were obtained through the abdomen and pelvis. One or more of the following individualized dose reduction techniques were utilized for this study: 1. Automated exposure control. 2. Adjustment of the mA and/or kV according to patient size. 3. Use of iterative reconstruction technique. FINDINGS: Images through the lung bases demonstrate mild cardiomegaly. Dependent subsegmental atelectasis is seen involving both lower lobes. The liver, spleen, pancreas, adrenal glands and right kidney are within normal limits. A 3.3 cm rounded low-attenuation lesion is seen involving the superior pole of the left kidney. This likely represents a cyst. No further imaging evaluation is recommended. Atherosclerotic calcification of the abdominal aorta is seen. The abdominal aorta tapers normally. The gallbladder is well-distended. No free fluid or free air is within the abdomen. There is no evidence of bowel obstruction. The appendix is well-visualized and is within normal limits. Images through the pelvis demonstrate the urinary bladder distended with urine. The prostate gland is enlarged likely related to BPH. Calcifications are seen within the pelvis consistent with phleboliths. A small amount of free fluid is seen within the pelvis. Scattered diverticula are seen involving the sigmoid colon. No inflammatory changes are seen in the adjacent fat. Degenerative changes are seen involving the lower thoracic and throughout the lumbar spine along with both hips. IMPRESSION: 1. Small amount of free fluid is seen within the pelvis. 2. No additional acute abnormality is seen. Electronically signed by: Garry Simpson MD (04/18/2021 1:44 PM) [id number] DICTATED and SIGNED BY: GARRY SIMPSON MD DATE: 04/18/21 [id number] [facility] [address] [place], [place] [id number] IMAGING REPORT Signed PATIENT: CAIO KNOX ACCOUNT: [id number] : 1950 LOCATION: ER AGE: 71 SEX: M EXAM STATUS: PRE ER ORD. PHYSICIAN: THANG BURCIAGA APRN REASON: dizziness PROCEDURE: CT HEAD WO CONTRAST CT scan of the head without contrast 04/18/2021 Clinical History: Dizziness. Technique: Unenhanced, contiguous, 5 mm axial sections were obtained through the head. One or more of the following individualized dose reduction techniques were utilized for this study: 1. Automated exposure control. 2. Adjustment of the mA and/or kV according to patient size. 3. Use of iterative reconstruction technique. Findings: Comparison study is dated 05/22/2016. There is generalized parenchymal atrophy. Areas of decreased attenuation are seen within the periventricular and subcortical white matter of both cerebral hemispheres consistent with areas of small vessel ischemic disease. No acute parenchymal abnormality is seen. No extra-axial fluid collection is noted. No skull fracture is seen. Impression: No acute intracranial abnormality is seen. Electronically signed by: Garry Simpson MD (04/18/2021 1:36 PM) [id number] DICTATED and SIGNED BY: GARRY SIMPSON MD DATE: 04/18/21 [id number] [facility] [address] [place], [place] [id number] IMAGING REPORT Signed PATIENT: CAIO KNOX ACCOUNT: [id number] : 1950 LOCATION: ER AGE: 71 SEX: M EXAM STATUS: PRE ER ORD. PHYSICIAN: THANG BURCIAGA APRN REASON: dizziness PROCEDURE: PORTABLE CHEST 1V EXAMINATION: XR CHEST 1V CLINICAL HISTORY: Dizziness EXAM DATE/TIME: 04/18/2021 1:07 PM COMPARISON: 12/23/2020 FINDINGS: Lines, Tubes, and Devices: None. Cardiomediastinal Silhouette: Normal heart size. Aortic atherosclerotic calcification. Lungs and Pleura: No evidence of focal airspace consolidation or pleural effusion. Pulmonary vasculature unremarkable. Bones and Soft Tissues: Degenerative changes of the thoracic spine. IMPRESSION: No evidence of acute cardiopulmonary abnormality or significant interval change. Electronically signed by: Nitish Rahman DO (04/18/2021 1:51 PM) [facility]ITAL[facility] DICTATED and SIGNED BY: NITISH RAHMAN DO DATE: 04/18/21 [id number] Course & Med Decision Making: Course & Med Decision Making Pertinent Labs and Imaging studies reviewed. (See chart for details) See HPI. Peripheral edema 1+ bilateral. Lungs clear in upper lobes and diminis hed in lower lobes. Skin pink warm and dry. Speaks in full clear sentences. Orthostatics normal. CT ABD PELV shows free fluid. Patient admitted to Dr Montilla. NIH negative. Finger nose finger negative. 03/31/21: Bilateral lower leg duplex showed no acute abnormalities. 04/01/21: Nuclear scan of heart Conclusion 1. Abnormal stress EKG with frequent PVCs although no clear ischemic changes noted 2. Moderate to large size reversible inferior, apical and lateral defect as noted above suggestive of ischemia in the RCA or circumflex territories. 3. Mild to moderate LV dysfunction, EF 44% (This may be related to gating artifact due to frequent PVCs) 4. Moderate risk study Recommendations Consider cardiac catheterization. Signed by : Feliberto Romero, Electronically Approved : 04/02/2021 09:23:23 [] Kassandra Disclaimer: Kassandra Disclaimer: This electronic medical record was generated, in whole or in part, using a voice recognition dictation system. NIHSS Stroke Scale NIH Stroke Scale: NIH Stroke Scale Response (Comments) Value Level of Consciousness: 0 Alert/Responsive 0 LOC Questions: 0 Answers both correctly 0 LOC Commands: 0 Performs both tasks 0 Best Gaze: 0 Normal 0 Visual: 0 No visual loss 0 Facial Palsy: 0 Normal, symmetrical 0 Motor - Left Arm 0 No drift 0 Motor - Right Arm 0 No drift 0 Motor - Left Leg 0 No drift 0 Motor: Right Leg 0 No drift 0 Limb Ataxia: 0 Absent 0 Sensory: 0 No loss 0 Best Language: 0 Normal 0 Dysathria: 0 Normal 0 Extinction and Inattention: 0 Normal 0 Total 0 Departure Departure Impression: Primary Impression: Dizziness Disposition: ADMITTED INPATIENT Admitting Physician: ENZO Condition: STABLE Referrals: BRADEN GARCIA MD (PCP) THANG BURCIAGA APRN Apr 18, 2021 13:20
--- NOTE | 2021-04-18 13:38 | RAD ---
CT scan of the head without contrast 04/18/2021 Clinical History: Dizziness. Technique: Unenhanced, contiguous, 5 mm axial sections were obtained through the head. One or more of the following individualized dose reduction techniques were utilized for this study: 1. Automated exposure control. 2. Adjustment of the mA and/or kV according to patient size. 3. Use of iterative reconstruction technique. Findings: Comparison study is dated 05/22/2016. There is generalized parenchymal atrophy. Areas of decreased attenuation are seen within the perivent ricular and subcortical white matter of both cerebral hemispheres consistent with areas of small vess el ischemic disease. No acute parenchymal abnormality is seen. No extra-axial fluid collection is not ed. No skull fracture is seen. Impression: No acute intracranial abnormality is seen. Electronically signed by: Garry Simpson MD (04/18/2021 1:36 PM) [id number]
--- NOTE | 2021-04-18 13:46 | RAD ---
CT scan abdomen and pelvis without contrast 04/18/2021. CLINICAL HISTORY: Bloating. Abdominal pain. TECHNIQUE: Unenhanced, contiguous, 2.5 mm axial sections were obtained through the abdomen and pelvis . One or more of the following individualized dose reduction techniques were utilized for this study: 1. Automated exposure control. 2. Adjustment of the mA and/or kV according to patient size. 3. Use of iterative reconstruction technique. FINDINGS: Images through the lung bases demonstrate mild cardiomegaly. Dependent subsegmental atelect asis is seen involving both lower lobes. The liver, spleen, pancreas, adrenal glands and right kidney are within normal limits. A 3.3 cm round ed low-attenuation lesion is seen involving the superior pole of the left kidney. This likely represe nts a cyst. No further imaging evaluation is recommended. Atherosclerotic calcification of the abdominal aorta is seen. The abdominal aorta tapers normally. Th e gallbladder is well-distended. No free fluid or free air is within the abdomen. There is no evidenc e of bowel obstruction. The appendix is well-visualized and is within normal limits. Images through the pelvis demonstrate the urinary bladder distended with urine. The prostate gland is enlarged likely related to BPH. Calcifications are seen within the pelvis consistent with phlebolith s. A small amount of free fluid is seen within the pelvis. Scattered diverticula are seen involving t he sigmoid colon. No inflammatory changes are seen in the adjacent fat. Degenerative changes are seen involving the lower thoracic and throughout the lumbar spine along with both hips. IMPRESSION: 1. Small amount of free fluid is seen within the pelvis. 2. No additional acute abnormality is seen. Electronically signed by: Garry Simpson MD (04/18/2021 1:44 PM) [id number]
--- NOTE | 2021-04-18 13:53 | RAD ---
EXAMINATION: XR CHEST 1V CLINICAL HISTORY: Dizziness EXAM DATE/TIME: 04/18/2021 1:07 PM COMPARISON: 12/23/2020 FINDINGS: Lines, Tubes, and Devices: None. Cardiomediastinal Silhouette: Normal heart size. Aortic atherosclerotic calcification. Lungs and Pleura: No evidence of focal airspace consolidation or pleural effusion. Pulmonary vasculat ure unremarkable. Bones and Soft Tissues: Degenerative changes of the thoracic spine. IMPRESSION: No evidence of acute cardiopulmonary abnormality or significant interval change. Electronically signed by: Nitish Rodriguez DO (04/18/2021 1:51 PM) [facility]
[2021-04-18 14:10] LABS: HEMATOCRIT 43.5 % (39.0-53.0); HEMOGLOBIN 15.2 g/dL (13.0-17.5); MEAN CORPUSCULAR HEMOGLOBIN 33 pg (25-35); MEAN CORPUSCULAR HGB CONC 35 g/dL (31-37); MEAN CORPUSCULAR VOLUME 96 fL (79-100); RED BLOOD COUNT 4.55 x10^6/uL (4.30-5.70); RED CELL DISTRIBUTION WIDTH 14.6 % (11.5-14.5); WHITE BLOOD COUNT 5.8 x10^3/uL (4.0-11.0)
[2021-04-18 14:11] LABS: BASO # 0.1 x10^3/uL (0.0-0.2); BASO % 1 % (0-3); EOS # 0.2 x10^3/uL (0.0-0.7); EOS % 3 % (0-3); LYMPH # 1.8 x10^3/uL (1.0-4.8); LYMPH % 30 % (24-48); MONO # 0.5 x10^3/uL (0.0-1.1); MONO % 9 % (0-9); NEUT # 3.3 x10^3/uL (1.8-7.7); NEUT % 57 % (31-73); PLATELET COUNT 234 x10^3/uL (140-400)
--- NOTE | 2021-04-18 15:06 | EKG ---
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
[2021-04-18 15:26] LABS: PROTHROMBIN TIME PATIENT 14.8 SEC (11.7-14.0)
[2021-04-18 15:28] LABS: CALCIUM 9.8 mg/dL (8.5-10.1); CREATININE 1.4 mg/dL (0.7-1.3); GFR 60.6; POTASSIUM 4.1 mmol/L (3.5-5.1)
[2021-04-18 15:33] LABS: BILIRUBIN,URINE NEGATIVE (NEG); CLARITY,URINE CLEAR; COLOR,URINE YELLOW; NITRITE,URINE NEGATIVE (NEG); PROTEIN,URINE NEGATIVE (NEG-TRACE)
[2021-04-18 15:34] LABS: BACTERIA,URINE 0 /HPF (0-FEW); RBC,URINE 0 /HPF (0-2); WBC,URINE 0 /HPF (0-4)
[2021-04-18 15:36] LABS: ALBUMIN 3.6 g/dL (3.4-5.0); ALBUMIN/GLOBULIN RATIO 0.8 (1.0-1.7); MAGNESIUM 2.2 mg/dL (1.8-2.4); TOTAL BILIRUBIN 0.5 mg/dL (0.2-1.0)
[2021-04-18] MEDS ORDERED: ELECTROLYTE (NON-ICU) PROTOCOL. MC PRN (15:45)
[2021-04-18] MEDS ORDERED: ZOLPIDEM 5 MG TABLET. PO PRN (15:45)
[2021-04-18] MEDS ORDERED: ONDANSETRON PF 4 MG/2 ML VIAL. IVP PRN (15:45)
[2021-04-18] MEDS ORDERED: IV NORMAL SALINE 1000ML BAG 1,000 ML IV ONE (15:45)
[2021-04-18] MEDS ORDERED: ACETAMINOPHEN 325 MG TABLET. PO PRN (15:45)
[2021-04-18] MEDS ORDERED: CALCIUM CARBONATE 500 MG TAB.CHEW PO PRN (15:45)
--- NOTE | 2021-04-18 16:06 | PDOC1 ---
History and Physical Date of Service: DOS: DATE: 04/18/21 TIME: 15:51 Chief Complaint: Problems: (1) Dizziness (2) Hypertension (3) Atrial fibrillation (4) REEMA (acute kidney injury) Chief Complain: Dizziness History of Present Illness: Reason for Visit: 3-day history of dizziness HPI: Patient 72-year-old male who presents today due to 3-day history of dizziness. Patient reports that out of nowhere he awoke 3 days ago and was having dizziness when he woke up. He says the dizziness has been persisting and it does not have any relation to activity, standing up from sitting or lying down. He says it will just randomly hit him last for a few minutes and then just go away. Reports that the episodes have been increasing in frequency. Patient was recently seen here on April 01 for a duplex of his lower extremities which was normal he also had a cardiac MRI; after that he was told by Dr. Lipscomb that he needed a cardiac cath but not emergently. Patient reports having both Covid vaccinations Patient reports that since the dizziness started she has also been having some abdominal pain along with bloating. The changes in diet he just feels very bloated. He denies any vomiting, hematemesis, abnormal bowel movements, bloody bowel movements. Patient otherwise is not endorsing shortness of breath, chest pain, dysuria, joint pain, headache, vision changes. Past Medical/Surgical History: PMH/PSH: Atrial fibrillation on home Eliquis, hypertension, migraine Allergies: Allergies: Coded Allergies: No Known Drug Allergies (Unverified , 05/06/15) Family History: Family History: Hypertension Social History: Social History: Denies smoking alcohol use; endorses occasional marijuana use Current Medications: Current Medications Current Medications Ondansetron HCl (Zofran) 4 mg PRN Q6HRS PRN IVP NAUSEA/VOMITING; Start 04/18/21 at 15:45 Calcium Carbonate/ Glycine (Tums) 500 mg PRN Q3HRS PRN PO UPSET STOMACH; Start 04/18/21 at 15:45 Zolpidem Tartrate (Ambien) 5 mg PRN QHS PRN PO INSOMNIA, MAY REPEAT IN 1HR; Start 04/18/21 at 15:45 Info (Non-Icu Electrolyte Protocol) 1 ea PRN DAILY PRN MC SEE COMMENTS; Start 04/18/21 at 15:45 Acetaminophen (Tylenol) 650 mg PRN Q6HRS PRN PO Headaches, Temp > 101.5F; Start 04/18/21 at 15:45 Senna/Docusate Sodium (Senna Plus) 1 tab BID PO ; Start 04/18/21 at 21:00 Amiodarone HCl (Cordarone) 200 mg DAILY PO ; Start 04/19/21 at 09:00 Amlodipine Besylate (Norvasc) 5 mg DAILY PO ; Start 04/19/21 at 09:00 Apixaban (Eliquis) 5 mg BID PO ; Start 04/18/21 at 21:00 Ferrous Sulfate (Feosol) 325 mg DAILY PO ; Start 04/19/21 at 09:00 Lisinopril (Prinivil) 20 mg DAILY PO ; Start 04/19/21 at 09:00 Sodium Chloride 1,000 ml @ 1,000 mls/hr 1X ONCE IV ; Start 04/18/21 at 15:45; Stop 04/18/21 at 16:44 Active Scripts Active Excedrin Migraine Caplet (Aspirin/Acetaminophen/Caffeine) 1 Each Tablet 1 Each PO Q6-8HRS PRN Reported Amiodarone Hcl 200 Mg Tablet 200 Mg PO DAILY Ferrous Sulfate 325 Mg Tablet.dr 325 Mg PO DAILY Eliquis (Apixaban) 5 Mg Tablet 5 Mg PO BID Lisinopril-Hctz 20-12.5 Mg Tab (Lisinopril/Hydrochlorothiazide) 1 Each Tablet 1 Tab PO DAILY Amlodipine Besylate 5 Mg Tablet 1 Tab PO DAILY ROS: Review of Systems Review of System Negative unless noted in HPI Physical Exam: Vital Signs: Vital Signs Date Time Temp Pulse Resp B/P (MAP) Pulse Ox O2 Delivery O2 Flow Rate FiO2 04/18/21 13:27 67 20 153/71 (98) 98 Room Air 04/18/21 12:55 98.5 98.5 Physcial Exam: GEN: No apparent distress. Alert and oriented, obese HEENT: Normal cephalic, atraumatic, external auditory canals are patent EYES: Extraocular muscles are intact, pupil are equally round and reactive to light and accommodation MUSCULOSKELETAL: Well developed , well nourished, good range of motion ENDOCRINE: No thyromegaly was palpated LYMPHATICS: No cervical chain or axillary nodes were noted HEMATOPOIETIC: No bruising NECK: Supple, no JVD, no thyromegaly was noted LUNGS: Clear to auscultation in all lung cruz without rhonchi or wheezing HEART: Regular rate regular rhythm, S1, S2 present. Peripheral pulses intact, no obvious murmurs noted ABDOMEN: Soft, nontender, distended. Positive bowel sounds, no organomegaly, normal bowel sounds EXTREMITIES: Without clubbing, cyanosis, or edema. Pedal pulses intact. NEUROLOGIC: Normal speech and tone. A&O x 3, moves all extremities, no obvious focal deficits PSYCHIATRIC: Normal affect, normal mood. Stable SKIN: No ulcerations or rashes, good skin turgor, no jaundice VASCULAR: Good capillary refill, neurovascular bundle appears to be intact Labs: Labs: Laboratory Tests Test 04/18/21 13:50 04/18/21 14:55 04/18/21 15:05 White Blood Count 5.8 x10^3/uL (4.0-11.0) Red Blood Count 4.55 x10^6/uL (4.30-5.70) Hemoglobin 15.2 g/dL (13.0-17.5) Hematocrit 43.5 % (39.0-53.0) Mean Corpuscular Volume 96 fL (79-100) Mean Corpuscular Hemoglobin 33 pg (25-35) Mean Corpuscular Hemoglobin Concent 35 g/dL (31-37) Red Cell Distribution Width 14.6 % (11.5-14.5) Platelet Count 234 x10^3/uL (140-400) Neutrophils (%) (Auto) 57 % (31-73) Lymphocytes (%) (Auto) 30 % (24-48) Monocytes (%) (Auto) 9 % (0-9) Eosinophils (%) (Auto) 3 % (0-3) Basophils (%) (Auto) 1 % (0-3) Neutrophils # (Auto) 3.3 x10^3/uL (1.8-7.7) Lymphocytes # (Auto) 1.8 x10^3/uL (1.0-4.8) Monocytes # (Auto) 0.5 x10^3/uL (0.0-1.1) Eosinophils # (Auto) 0.2 x10^3/uL (0.0-0.7) Basophils # (Auto) 0.1 x10^3/uL (0.0-0.2) Urine Collection Type Unknown Urine Color Yellow Urine Clarity Clear Urine pH 7.0 (<5.0-8.0) Urine Specific [place] 1.020 (1.000-1.030) Urine Protein Negative mg/dL (NEG-TRACE) Urine Glucose (UA) Negative mg/dL (NEG) Urine Ketones (Stick) Negative mg/dL (NEG) Urine Blood Negative (NEG) Urine Nitrite Negative (NEG) Urine Bilirubin Negative (NEG) Urine Urobilinogen Dipstick 2.0 mg/dL (0.2 mg/dL) Urine Leukocyte Esterase Negative (NEG) Urine RBC 0 /HPF (0-2) Urine WBC 0 /HPF (0-4) Urine Bacteria 0 /HPF (0-FEW) Prothrombin Time 14.8 SEC (11.7-14.0) Prothromb Time International Ratio 1.2 (0.8-1.1) Sodium Level 141 mmol/L (136-145) Potassium Level 4.1 mmol/L (3.5-5.1) Chloride Level 106 mmol/L (98-107) Carbon Dioxide Level 28 mmol/L (21-32) Anion Gap 7 (6-14) Blood Urea Nitrogen 15 mg/dL (8-26) Creatinine 1.4 mg/dL (0.7-1.3) Estimated GFR (Cockcroft-Gault) 60.6 BUN/Creatinine Ratio 11 (6-20) Glucose Level 100 mg/dL (70-99) Calcium Level 9.8 mg/dL (8.5-10.1) Magnesium Level 2.2 mg/dL (1.8-2.4) Total Bilirubin 0.5 mg/dL (0.2-1.0) Aspartate Amino Transf (AST/SGOT) 11 U/L (15-37) Alanine Aminotransferase (ALT/SGPT) 25 U/L (16-63) Alkaline Phosphatase 55 U/L (46-116) Troponin I Quantitative < 0.017 ng/mL (0.000-0.055) Total Protein 8.0 g/dL (6.4-8.2) Albumin 3.6 g/dL (3.4-5.0) Albumin/Globulin Ratio 0.8 (1.0-1.7) Lipase 33 U/L (73-393) Laboratory Tests Test 04/18/21 13:50 04/18/21 14:55 04/18/21 15:05 White Blood Count 5.8 x10^3/uL (4.0-11.0) Red Blood Count 4.55 x10^6/uL (4.30-5.70) Hemoglobin 15.2 g/dL (13.0-17.5) Hematocrit 43.5 % (39.0-53.0) Mean Corpuscular Volume 96 fL (79-100) Mean Corpuscular Hemoglobin 33 pg (25-35) Mean Corpuscular Hemoglobin Concent 35 g/dL (31-37) Red Cell Distribution Width 14.6 % (11.5-14.5) Platelet Count 234 x10^3/uL (140-400) Neutrophils (%) (Auto) 57 % (31-73) Lymphocytes (%) (Auto) 30 % (24-48) Monocytes (%) (Auto) 9 % (0-9) Eosinophils (%) (Auto) 3 % (0-3) Basophils (%) (Auto) 1 % (0-3) Neutrophils # (Auto) 3.3 x10^3/uL (1.8-7.7) Lymphocytes # (Auto) 1.8 x10^3/uL (1.0-4.8) Monocytes # (Auto) 0.5 x10^3/uL (0.0-1.1) Eosinophils # (Auto) 0.2 x10^3/uL (0.0-0.7) Basophils # (Auto) 0.1 x10^3/uL (0.0-0.2) Urine Collection Type Unknown Urine Color Yellow Urine Clarity Clear Urine pH 7.0 (<5.0-8.0) Urine Specific [place] 1.020 (1.000-1.030) Urine Protein Negative mg/dL (NEG-TRACE) Urine Glucose (UA) Negative mg/dL (NEG) Urine Ketones (Stick) Negative mg/dL (NEG) Urine Blood Negative (NEG) Urine Nitrite Negative (NEG) Urine Bilirubin Negative (NEG) Urine Urobilinogen Dipstick 2.0 mg/dL (0.2 mg/dL) Urine Leukocyte Esterase Negative (NEG) Urine RBC 0 /HPF (0-2) Urine WBC 0 /HPF (0-4) Urine Bacteria 0 /HPF (0-FEW) Prothrombin Time 14.8 SEC (11.7-14.0) Prothromb Time International Ratio 1.2 (0.8-1.1) Sodium Level 141 mmol/L (136-145) Potassium Level 4.1 mmol/L (3.5-5.1) Chloride Level 106 mmol/L (98-107) Carbon Dioxide Level 28 mmol/L (21-32) Anion Gap 7 (6-14) Blood Urea Nitrogen 15 mg/dL (8-26) Creatinine 1.4 mg/dL (0.7-1.3) Estimated GFR (Cockcroft-Gault) 60.6 BUN/Creatinine Ratio 11 (6-20) Glucose Level 100 mg/dL (70-99) Calcium Level 9.8 mg/dL (8.5-10.1) Magnesium Level 2.2 mg/dL (1.8-2.4) Total Bilirubin 0.5 mg/dL (0.2-1.0) Aspartate Amino Transf (AST/SGOT) 11 U/L (15-37) Alanine Aminotransferase (ALT/SGPT) 25 U/L (16-63) Alkaline Phosphatase 55 U/L (46-116) Troponin I Quantitative < 0.017 ng/mL (0.000-0.055) Total Protein 8.0 g/dL (6.4-8.2) Albumin 3.6 g/dL (3.4-5.0) Albumin/Globulin Ratio 0.8 (1.0-1.7) Lipase 33 U/L (73-393) Assessment/Plan Assessment/Plan Patient is a 71-year-old male presenting today for 3-day history of dizziness. Dizziness without syncope, abdominal pain/bloating, hypertension, atrial fibrillation, REEMA versus CKD -Patient with 3-day history of dizziness -Recently seen by his rolling mill plugger who recommended outpatient heart catheterization -Orthostatics in emergency room normal; troponin negative; other than elevated creatinine lab work overall unremarkable -CT head normal, CT abdomen pelvis shows minimal free fluid in the pelvis -will consult cardiology -Simethicone and Protonix ordered for abdominal pain and bloating -Creatinine elevated to 1.5, previously 1.4 in November. We will continue to monitor daily, this may be his baseline -Home meds reordered as indicated Cardiac diet Eliquis will serve as DVT prophylaxis Justifications for Admission Other Justification ASHLIE MELENDEZ MD Apr 18, 2021 16:06
[2021-04-18] MEDS ORDERED: PANTOPRAZOLE 40 MG TABLET.DR. PO ONE (16:30)
[2021-04-18 19:00] VITALS: BP 167/79
[2021-04-18] MEDS: SENNOSIDES/DOCUSATE 8.6/50MG TABLET. PO SCH (21:00)
[2021-04-18] MEDS: PANTOPRAZOLE 40 MG TABLET.DR. PO SCH (21:07)
[2021-04-18] MEDS: APIXABAN 5 MG TABLET. PO SCH (21:07)
[2021-04-18 22:47] VITALS: BP 119/68
[2021-04-19] MEDS: SIMETHICONE 80 MG TAB.CHEW PO PRN ×4 (02:33→15:47)
[2021-04-19 02:52] VITALS: BP 140/68
[2021-04-19 07:00] VITALS: BP 122/81
[2021-04-19] MEDS: AMIODARONE HCL 200 MG TABLET. PO SCH (08:49)
[2021-04-19] MEDS: APIXABAN 5 MG TABLET. PO SCH ×2 (08:49→21:11)
[2021-04-19] MEDS: SENNOSIDES/DOCUSATE 8.6/50MG TABLET. PO SCH ×3 (08:50→21:00)
[2021-04-19] MEDS: PANTOPRAZOLE 40 MG TABLET.DR. PO SCH (08:50)
[2021-04-19] MEDS: LISINOPRIL 20 MG TABLET PO SCH (08:50)
[2021-04-19] MEDS: FERROUS SULFATE 325 MG TABLET. PO SCH (08:50)
[2021-04-19] MEDS ORDERED: DUTA0.5C36 PO (08:56)
[2021-04-19] MEDS ORDERED: TAMS0.4C97 PO (08:56)
[2021-04-19 11:00] VITALS: BP 128/69
[2021-04-19] MEDS ORDERED: ANTI-COAG MONITOR BY PHARMACY. MC PRN (11:30)
--- NOTE | 2021-04-19 13:04 | PDOC ---
[facility] PROGRESS NOTE Date of Service DOS: DATE: 04/19/21 TIME: 12:56 Chief Complaint Chief Complaint Dizziness without syncope abdominal pain/bloating hypertension atrial fibrillation REEMA versus CKD -Patient with 3-day history of dizziness -Recently seen by his forest fire lookout who recommended outpatient heart catheterization -Orthostatics in emergency room normal; troponin negative; other than elevated creatinine lab work overall unremarkable -CT head normal, CT abdomen pelvis shows minimal free fluid in the pelvis -will consult cardiology -Simethicone and Protonix ordered for abdominal pain and bloating -Creatinine elevated to 1.5, previously 1.4 in November. We will continue to monitor daily, this may be his baseline -Home meds reordered as indicated Cardiac diet Eliquis will serve as DVT prophylaxis History of Present Illness History of Present Illness Patient 72-year-old male who presents today due to 3-day history of dizziness. Patient reports that out of nowhere he awoke 3 days ago and was having dizziness when he woke up. He says the dizziness has been persisting and it does not have any relation to activity, standing up from sitting or lying down. He says it will just randomly hit him last for a few minutes and then just go away. Reports that the episodes have been increasing in frequency. Patient was recently seen here on April 01 for a duplex of his lower extremities which was normal he also had a cardiac MRI; after that he was told by Dr. Lipscomb that he needed a cardiac cath but not emergently. Patient reports having both Covid vaccinations Patient reports that since the dizziness started she has also been having some abdominal pain along with bloating. The changes in diet he just feels very bloated. He denies any vomiting, hematemesis, abnormal bowel movements, bloody bowel movements. Patient otherwise is not endorsing shortness of breath, chest pain, dysuria, joint pain, headache, vision changes. 04/19/2021: Patient seen and evaluated bedside. Still reports intermittent dizziness, without any aggravating or alleviating factors. States dizziness will occur even at rest. Interested patient from supine position I do appreciate some horizontal and vertical nystagmus. He also notes having to use the wall to support himself as he walks. Will place consult to neurology for concern of posterior CVA given medical history. Also reports shortness of breath and limited distance walking. Minimal edema on exam and some lung crackles. Discussed case with Dr. Lion, will likely monitor overnight and consider ischemic evaluation tomorrow. Will diurese with Lasix, and monitor kidney function. Patient also notes abdominal bloating; states his last bowel movement was several days ago. Will provide MiraLAX. Vitals/I&O Vitals/I&O: Vital Signs Date Time Temp Pulse Resp B/P (MAP) Pulse Ox O2 Delivery O2 Flow Rate FiO2 04/19/21 11:00 97.8 58 16 128/69 (88) 96 Room Air 97.8 I & O 04/18/21 04/18/21 04/19/21 15:00 23:00 07:00 Intake Total 150 ml 0 ml Output Total 0 ml 500 ml Balance 150 ml -500 ml Physical Exam General: Alert, Oriented X3, Cooperative, mild distress Heart: Regular rate Lungs: Crackles Abdomen: Soft, No tenderness Extremities: Other (+1 bilateral lower extremity edema) Skin: No rashes, No breakdown Labs Labs: Laboratory Tests Test 04/18/21 13:50 04/18/21 14:55 04/18/21 15:05 White Blood Count 5.8 x10^3/uL (4.0-11.0) Red Blood Count 4.55 x10^6/uL (4.30-5.70) Hemoglobin 15.2 g/dL (13.0-17.5) Hematocrit 43.5 % (39.0-53.0) Mean Corpuscular Volume 96 fL (79-100) Mean Corpuscular Hemoglobin 33 pg (25-35) Mean Corpuscular Hemoglobin Concent 35 g/dL (31-37) Red Cell Distribution Width 14.6 % (11.5-14.5) Platelet Count 234 x10^3/uL (140-400) Neutrophils (%) (Auto) 57 % (31-73) Lymphocytes (%) (Auto) 30 % (24-48) Monocytes (%) (Auto) 9 % (0-9) Eosinophils (%) (Auto) 3 % (0-3) Basophils (%) (Auto) 1 % (0-3) Neutrophils # (Auto) 3.3 x10^3/uL (1.8-7.7) Lymphocytes # (Auto) 1.8 x10^3/uL (1.0-4.8) Monocytes # (Auto) 0.5 x10^3/uL (0.0-1.1) Eosinophils # (Auto) 0.2 x10^3/uL (0.0-0.7) Basophils # (Auto) 0.1 x10^3/uL (0.0-0.2) Urine Collection Type Unknown Urine Color Yellow Urine Clarity Clear Urine pH 7.0 (<5.0-8.0) Urine Specific [place] 1.020 (1.000-1.030) Urine Protein Negative mg/dL (NEG-TRACE) Urine Glucose (UA) Negative mg/dL (NEG) Urine Ketones (Stick) Negative mg/dL (NEG) Urine Blood Negative (NEG) Urine Nitrite Negative (NEG) Urine Bilirubin Negative (NEG) Urine Urobilinogen Dipstick 2.0 mg/dL (0.2 mg/dL) Urine Leukocyte Esterase Negative (NEG) Urine RBC 0 /HPF (0-2) Urine WBC 0 /HPF (0-4) Urine Bacteria 0 /HPF (0-FEW) Prothrombin Time 14.8 SEC (11.7-14.0) Prothromb Time International Ratio 1.2 (0.8-1.1) Sodium Level 141 mmol/L (136-145) Potassium Level 4.1 mmol/L (3.5-5.1) Chloride Level 106 mmol/L (98-107) Carbon Dioxide Level 28 mmol/L (21-32) Anion Gap 7 (6-14) Blood Urea Nitrogen 15 mg/dL (8-26) Creatinine 1.4 mg/dL (0.7-1.3) Estimated GFR (Cockcroft-Gault) 60.6 BUN/Creatinine Ratio 11 (6-20) Glucose Level 100 mg/dL (70-99) Calcium Level 9.8 mg/dL (8.5-10.1) Magnesium Level 2.2 mg/dL (1.8-2.4) Total Bilirubin 0.5 mg/dL (0.2-1.0) Aspartate Amino Transf (AST/SGOT) 11 U/L (15-37) Alanine Aminotransferase (ALT/SGPT) 25 U/L (16-63) Alkaline Phosphatase 55 U/L (46-116) Troponin I Quantitative < 0.017 ng/mL (0.000-0.055) Total Protein 8.0 g/dL (6.4-8.2) Albumin 3.6 g/dL (3.4-5.0) Albumin/Globulin Ratio 0.8 (1.0-1.7) Lipase 33 U/L (73-393) Comment Review of Relevant I have reviewed the following items luis manuel (where applicable) has been applied. Medications: Current Medications Medications (Trade) Dose Ordered Sig/Fawad Route PRN Reason Start Time Stop Time Status Last Admin Dose Admin Calcium Carbonate/ Glycine (Tums) 500 mg PRN Q3HRS PRN PO UPSET STOMACH 04/18/21 15:45 04/19/21 12:24 Senna/Docusate Sodium (Senna Plus) 1 tab BID PO 04/18/21 21:00 04/19/21 12:24 Amiodarone HCl (Cordarone) 200 mg DAILY PO 04/19/21 09:00 04/19/21 08:49 Amlodipine Besylate (Norvasc) 5 mg DAILY PO 04/19/21 09:00 04/19/21 08:49 Apixaban (Eliquis) 5 mg BID PO 04/18/21 21:00 04/19/21 08:49 Ferrous Sulfate (Feosol) 325 mg DAILY PO 04/19/21 09:00 04/19/21 08:50 Lisinopril (Prinivil) 20 mg DAILY PO 04/19/21 09:00 04/19/21 08:50 Sodium Chloride 1,000 ml @ 1,000 mls/hr 1X ONCE IV 04/18/21 15:45 04/18/21 16:44 DC 04/18/21 21:11 Simethicone (Gas-X) 80 mg PRN Q2HR PRN PO GAS / BLOATING 04/18/21 16:00 04/19/21 08:48 Pantoprazole Sodium (Protonix) 40 mg DAILY PO 04/18/21 17:00 04/19/21 08:50 Justifications for Admission Other Justification DANIELA WREN MD Apr 19, 2021 13:04
[2021-04-19 15:00] VITALS: BP 107/63
[2021-04-19] MEDS ORDERED: POLYETHYLENE GLYCOL 3350 17 GM PACKET. PO PRN (15:00)
[2021-04-19] MEDS: DUTASTERIDE 0.5 MG CAPSULE PO SCH (17:37)
[2021-04-19] MEDS: TAMSULOSIN 0.4 MG CAP.ER.24H. PO SCH (17:37)
[2021-04-19 18:25] VITALS: BP 111/60
--- NOTE | 2021-04-19 20:40 | PDOC2 ---
CONSULT Date of Consult Date of Consult DATE: 04/19/21 TIME: 20:29 Reason for Consult Reason for Consult: Dizziness Referring Physician Referring Physician: Dr. Montilla Identification/Chief Complaint Chief Complaint Dizziness Source Source: Chart review, Patient History of Present Illness Reason for Visit: The patient is a 71 year old male who reports 3 days of occasional dizziness. He denies chest pain or LOC. His EKG shows a sinus rhythm and monitoring shows no significant arrhythmias. He has a history of atrial fib., HTN and a CVA. His chief complaint this morning is abdominal pain. A CT scan of his head shows no acute changes. Of note a recent outpt KEV showed inferior wall reversible iuschemia. The patient's weight is 146 Kg. Past Medical History Cardiovascular: AFIB, HTN Pulmonary: No pertinent hx CENTRAL NERVOUS SYSTEM: CVA GI: Other Heme/Onc: Anemia NOS Hepatobiliary: No pertinent hx Psych: No pertinent hx Musculoskeletal: low back pain, Osteoarthritis Rheumatologic: No pertinent hx Infectious disease: No pertinent hx Renal/: Benign prostatic enlarg. Endocrine: No pertinent hx Past Surgical History Past Surgical History: Arthroscopy, Other (Left eye surgery.) Family History Family History: Coronary Artery Disease, Hypertension Social History Quit ALCOHOL: none Drugs: Marijuana Lives: with Family Current Medications Current Medications Current Medications Ondansetron HCl (Zofran) 4 mg PRN Q6HRS PRN IVP NAUSEA/VOMITING; Start 04/18/21 at 15:45 Calcium Carbonate/ Glycine (Tums) 500 mg PRN Q3HRS PRN PO UPSET STOMACH Last administered on 04/19/21at 12:24; Start 04/18/21 at 15:45 Zolpidem Tartrate (Ambien) 5 mg PRN QHS PRN PO INSOMNIA, MAY REPEAT IN 1HR; Start 04/18/21 at 15:45 Info (Non-Icu Electrolyte Protocol) 1 ea PRN DAILY PRN MC SEE COMMENTS; Start 04/18/21 at 15:45 Acetaminophen (Tylenol) 650 mg PRN Q6HRS PRN PO Headaches, Temp > 101.5F; Start 04/18/21 at 15:45 Senna/Docusate Sodium (Senna Plus) 1 tab BID PO Last administered on 04/19/21at 12:24; Start 04/18/21 at 21:00 Amiodarone HCl (Cordarone) 200 mg DAILY PO Last administered on 04/19/21 08:49; Start 04/19/21 at 09:00 Amlodipine Besylate (Norvasc) 5 mg DAILY PO Last administered on 04/19/21 08:49; Start 04/19/21 at 09:00 Apixaban (Eliquis) 5 mg BID PO Last administered on 04/19/21 08:49; Start 04/18/21 at 21:00 Ferrous Sulfate (Feosol) 325 mg DAILY PO Last administered on 04/19/21 08:50; Start 04/19/21 at 09:00 Lisinopril (Prinivil) 20 mg DAILY PO Last administered on 04/19/21 08:50; Start 04/19/21 at 09:00 Sodium Chloride 1,000 ml @ 1,000 mls/hr 1X ONCE IV Last administered on 04/18/21 21:11; Start 04/18/21 at 15:45; Stop 04/18/21 at 16:44; Status DC Simethicone (Gas-X) 80 mg PRN Q2HR PRN PO GAS / BLOATING Last administered on 04/19/21 15:47; Start 04/18/21 at 16:00 Pantoprazole Sodium (Protonix) 40 mg DAILY ONCE PO ; Start 04/18/21 at 16:30; Stop 04/18/21 at 16:13; Status DC Pantoprazole Sodium (Protonix) 40 mg DAILY PO Last administered on 04/19/21 08:50; Start 04/18/21 at 17:00 Info (Anti-Coagulation Monitoring By Pharmacy) 1 each PRN DAILY PRN MC PER PROTOCOL; Start 04/19/21 at 11:30 Polyethylene Glycol (miraLAX PACKET) 17 gm PRN DAILY PRN PO CONSTIPATION Last administered on 04/19/21 15:47; Start 04/19/21 at 15:00 Dutasteride (Avodart) 0.5 mg DAILY PO Last administered on 04/19/21 17:37; Start 04/19/21 at 17:00 Tamsulosin HCl (Flomax) 0.4 mg DAILY PO Last administered on 04/19/21 17:37; Start 04/19/21 at 17:00 Active Scripts Active Excedrin Migraine Caplet (Aspirin/Acetaminophen/Caffeine) 1 Each Tablet 1 Each PO Q6-8HRS PRN Reported Flomax (Tamsulosin Hcl) 0.4 Mg Cap.er.24h 1 Cap PO DAILY Dutasteride 0.5 Mg Capsule 1 Cap PO DAILY Amiodarone Hcl 200 Mg Tablet 200 Mg PO DAILY Ferrous Sulfate 325 Mg Tablet.dr 325 Mg PO DAILY Eliquis (Apixaban) 5 Mg Tablet 5 Mg PO BID Lisinopril-Hctz 20-12.5 Mg Tab (Lisinopril/Hydrochlorothiazide) 1 Each Tablet 1 Tab PO DAILY Amlodipine Besylate 5 Mg Tablet 1 Tab PO DAILY Allergies Allergies: Coded Allergies: No Known Drug Allergies (Unverified , 05/06/15) ROS Neurological: Yes Dizziness Physical Exam General: mild distress HEENT: Atraumatic Lungs: Clear to auscultation Heart: Regular rate Abdomen: Normal bowel sounds Vitals VITALS Vital Signs Date Time Temp Pulse Resp B/P (MAP) Pulse Ox O2 Delivery O2 Flow Rate FiO2 04/19/21 18:25 98.3 59 18 111/60 (77) 96 Room Air 98.3 Labs Labs Laboratory Tests Test 04/18/21 13:50 04/18/21 14:55 04/18/21 15:05 White Blood Count 5.8 x10^3/uL (4.0-11.0) Red Blood Count 4.55 x10^6/uL (4.30-5.70) Hemoglobin 15.2 g/dL (13.0-17.5) Hematocrit 43.5 % (39.0-53.0) Mean Corpuscular Volume 96 fL (79-100) Mean Corpuscular Hemoglobin 33 pg (25-35) Mean Corpuscular Hemoglobin Concent 35 g/dL (31-37) Red Cell Distribution Width 14.6 % (11.5-14.5) Platelet Count 234 x10^3/uL (140-400) Neutrophils (%) (Auto) 57 % (31-73) Lymphocytes (%) (Auto) 30 % (24-48) Monocytes (%) (Auto) 9 % (0-9) Eosinophils (%) (Auto) 3 % (0-3) Basophils (%) (Auto) 1 % (0-3) Neutrophils # (Auto) 3.3 x10^3/uL (1.8-7.7) Lymphocytes # (Auto) 1.8 x10^3/uL (1.0-4.8) Monocytes # (Auto) 0.5 x10^3/uL (0.0-1.1) Eosinophils # (Auto) 0.2 x10^3/uL (0.0-0.7) Basophils # (Auto) 0.1 x10^3/uL (0.0-0.2) Urine Collection Type Unknown Urine Color Yellow Urine Clarity Clear Urine pH 7.0 (<5.0-8.0) Urine Specific [place] 1.020 (1.000-1.030) Urine Protein Negative mg/dL (NEG-TRACE) Urine Glucose (UA) Negative mg/dL (NEG) Urine Ketones (Stick) Negative mg/dL (NEG) Urine Blood Negative (NEG) Urine Nitrite Negative (NEG) Urine Bilirubin Negative (NEG) Urine Urobilinogen Dipstick 2.0 mg/dL (0.2 mg/dL) Urine Leukocyte Esterase Negative (NEG) Urine RBC 0 /HPF (0-2) Urine WBC 0 /HPF (0-4) Urine Bacteria 0 /HPF (0-FEW) Prothrombin Time 14.8 SEC (11.7-14.0) Prothromb Time International Ratio 1.2 (0.8-1.1) Sodium Level 141 mmol/L (136-145) Potassium Level 4.1 mmol/L (3.5-5.1) Chloride Level 106 mmol/L (98-107) Carbon Dioxide Level 28 mmol/L (21-32) Anion Gap 7 (6-14) Blood Urea Nitrogen 15 mg/dL (8-26) Creatinine 1.4 mg/dL (0.7-1.3) Estimated GFR (Cockcroft-Gault) 60.6 BUN/Creatinine Ratio 11 (6-20) Glucose Level 100 mg/dL (70-99) Calcium Level 9.8 mg/dL (8.5-10.1) Magnesium Level 2.2 mg/dL (1.8-2.4) Total Bilirubin 0.5 mg/dL (0.2-1.0) Aspartate Amino Transf (AST/SGOT) 11 U/L (15-37) Alanine Aminotransferase (ALT/SGPT) 25 U/L (16-63) Alkaline Phosphatase 55 U/L (46-116) Troponin I Quantitative < 0.017 ng/mL (0.000-0.055) Total Protein 8.0 g/dL (6.4-8.2) Albumin 3.6 g/dL (3.4-5.0) Albumin/Globulin Ratio 0.8 (1.0-1.7) Lipase 33 U/L (73-393) Images Images As above. Assessment/Plan Assessment/Plan 1. Dizziness. Rhythm has been stable. No acute changes on imaging. Continue present medications and tele. 2. Abdominal pain. Treatment and work-up in progrress. 3. History of a recent abnormal MPI with inferior wall reversible ischemia and an EF of 44%. Continue present treatment and plan. Possible cath based on clinical course. 4. History of a CVA. CT images as above. 5. HTN. Continue present treatment. DALLAS DELGADO MD Apr 19, 2021 20:40
[2021-04-19 23:10] VITALS: BP 121/71
[2021-04-20 03:01] VITALS: BP 112/63
[2021-04-20 07:00] VITALS: BP 148/78
[2021-04-20] MEDS: DUTASTERIDE 0.5 MG CAPSULE PO SCH (09:24)
[2021-04-20] MEDS: SENNOSIDES/DOCUSATE 8.6/50MG TABLET. PO SCH ×2 (09:25→20:12)
[2021-04-20] MEDS: AMIODARONE HCL 200 MG TABLET. PO SCH (09:25)
[2021-04-20] MEDS: APIXABAN 5 MG TABLET. PO SCH ×2 (09:25→20:12)
[2021-04-20] MEDS: FERROUS SULFATE 325 MG TABLET. PO SCH (09:25)
[2021-04-20] MEDS: TAMSULOSIN 0.4 MG CAP.ER.24H. PO SCH (09:26)
[2021-04-20] MEDS: PANTOPRAZOLE 40 MG TABLET.DR. PO SCH (09:28)
[2021-04-20 11:00] VITALS: BP 118/83
--- NOTE | 2021-04-20 11:17 | PDOC ---
REI BILLINGSLEYILY LEX 04/20/21 1117: CARDIO Progress Notes Date and Time Date of Service 04/20/21 Time of Evaluation 1115 Subjective Subjective: No Chest Pain, No shortness of breath, No Palpitations, Other (c/o dizziness intermittently ) Vitals Vitals Vital Signs Date Time Temp Pulse Resp B/P (MAP) Pulse Ox O2 Delivery O2 Flow Rate FiO2 04/20/21 09:27 61 136/75 04/20/21 08:25 Room Air 04/20/21 07:00 97.7 16 99 97.7 Weight Weight [ ] Input and Output Intake and Output Intake and Output 04/20/21 07:00 Intake Total 1460 ml Output Total 1450 ml Balance 10 ml Intake Oral 1460 ml Output Urine Total 1450 ml Physical Exam HEENT: Neck Supple W Full Motion Chest: Symmetric LUNGS: Clear to Auscultation Heart: RRR Abdomen: Soft N/T Extremities: No Edema Neurology: alert, oriented, follow commands Assessment Assessment 1. Dizziness; no acute events on tele. orthos negative. MRI with prior stroke. No acute findings. 2. PAFIB; presently SR. Amiodarone for rhythm maintenance. Eliquis 3. Abdominal pain, bloating 4. Recent abnormal MPI with moderate to large size reversible inferior, apical and lateral defect 5. Chronic systolic CHF; MPI with EF 44% 6. H/o CVA 7. Hyperlipidemia Recommendations Lipids TSH Carotid US Secondary prevention Add statin Continue Eliquis for stroke prophylaxis Amiodarone for rhythm maintenance Will plan for outpatient left heart cath Supportive care Justicifation of Admission Dx: Justifications for Admission: Justification of Admission Dx: Yes Angina: Cresendo Worsening of Sym DALLAS DELGADO MD 04/20/21 1724: CARDIO Progress Notes Assessment Assessment Patient seen and evaluated. I agree with our nurse practitioners assessment and plan. Dizziness; no acute events on tele. orthos negative. MRI with prior stroke. No acute findings. PAFIB; presently SR. Amiodarone for rhythm maintenance. Eliquis Abdominal pain, bloating Recent abnormal MPI with moderate to large size reversible inferior, apical and lateral defect. No chest pain. We will arrange for outpatient heart catheterization. Chronic systolic CHF; MPI with EF 44% H/o CVA Hyperlipidemia. Statins. SINDI BILLINGSLEY APRN Apr 20, 2021 11:17 DALLAS DELGADO MD Apr 20, 2021 17:24
--- NOTE | 2021-04-20 11:19 | NUR ---
SS following for discharge planning. SS reviewed pt chart and discussed with pt RN. Pt is from home with spouse and is currently on room air. Neurology and Cardiology consulted. ECHO and Brain MRI ordered. SS will continue to follow for discharge planning.
--- NOTE | 2021-04-20 12:05 | PDOC ---
[facility] PROGRESS NOTE Date of Service DOS: DATE: 04/20/21 TIME: 11:54 Chief Complaint Chief Complaint Dizziness without syncope abdominal pain/bloating hypertension atrial fibrillation REEMA versus CKD History of Present Illness History of Present Illness 04/20/2021 Patient seen and examined Discussed with RN Chart reviewed Discussed with case management Currently back in sinus rhythm Going for echo and MRI today Patient 72-year-old male who presents today due to 3-day history of dizziness. Patient reports that out of nowhere he awoke 3 days ago and was having dizziness when he woke up. He says the dizziness has been persisting and it does not have any relation to activity, standing up from sitting or lying down. He says it will just randomly hit him last for a few minutes and then just go away. Reports that the episodes have been increasing in frequency. Patient was recently seen here on April 01 for a duplex of his lower extremities which was normal he also had a cardiac MRI; after that he was told by Dr. Lipscomb that he needed a cardiac cath but not emergently. Patient reports having both Covid vaccinations Patient reports that since the dizziness started she has also been having some abdominal pain along with bloating. The changes in diet he just feels very bloated. He denies any vomiting, hematemesis, abnormal bowel movements, bloody bowel movements. Patient otherwise is not endorsing shortness of breath, chest pain, dysuria, joint pain, headache, vision changes. 04/19/2021: Patient seen and evaluated bedside. Still reports intermittent dizziness, without any aggravating or alleviating factors. States dizziness will occur even at rest. Interested patient from supine position I do appreciate some horizontal and vertical nystagmus. He also notes having to use the wall to support himself as he walks. Will place consult to neurology for concern of posterior CVA given medical history. Also reports shortness of breath and limited distance walking. Minimal edema on exam and some lung crackles. Discussed case with Dr. Lion, will likely monitor overnight and consider ischemic evaluation tomorrow. Will diurese with Lasix, and monitor kidney function. Patient also notes abdominal bloating; states his last bowel movement was several days ago. Will provide MiraLAX. Vitals/I&O Vitals/I&O: Vital Signs Date Time Temp Pulse Resp B/P (MAP) Pulse Ox O2 Delivery O2 Flow Rate FiO2 04/20/21 11:00 97.7 64 16 118/83 (95) 99 Room Air 97.7 I & O 04/19/21 04/19/21 04/20/21 15:00 23:00 07:00 Intake Total 440 ml 820 ml 200 ml Output Total 500 ml 425 ml 525 ml Balance -60 ml 395 ml -325 ml Physical Exam General: Alert, Oriented X3 Heart: Regular rate Lungs: Crackles Abdomen: Normal bowel sounds Extremities: Other (+1 bilateral lower extremity edema, CDI dressings) Skin: No rashes, No breakdown Review of Systems Review of Systems: Pt denies pain Pt denies Shortness of breath Assessment and Plan Assessmemt and Plan Dizziness without syncope abdominal pain/bloating hypertension atrial fibrillation REEMA versus CKD Plan cardiac monitoring echo/MRI today PTOT Home Rx DVT prophylaxis Anticoag possible D/C tomorrow Appreciate subspecialist input Comment Review of Relevant I have reviewed the following items luis manuel (where applicable) has been applied. Medications: Current Medications Medications (Trade) Dose Ordered Sig/Fawad Route PRN Reason Start Time Stop Time Status Last Admin Dose Admin Polyethylene Glycol (miraLAX PACKET) 17 gm PRN DAILY PRN PO CONSTIPATION 04/19/21 15:00 04/19/21 15:47 Dutasteride (Avodart) 0.5 mg DAILY PO 04/19/21 17:00 04/20/21 09:24 Tamsulosin HCl (Flomax) 0.4 mg DAILY PO 04/19/21 17:00 04/20/21 09:26 Justifications for Admission Other Justification JUDI COBURN III DO Apr 20, 2021 12:05
--- NOTE | 2021-04-20 12:15 | PDOC ---
[facility] PROGRESS NOTE Date of Service DOS: DATE: 04/20/21 TIME: 12:09 Chief Complaint Chief Complaint Dizziness without syncope abdominal pain/bloating hypertension atrial fibrillation REEMA versus CKD History of Present Illness History of Present Illness 04/20/2020 Patient seen and examined Discussed with RN Chart reviewed He is awaiting echo and MRI today Patient 72-year-old male who presents today due to 3-day history of dizziness. Patient reports that out of nowhere he awoke 3 days ago and was having dizziness when he woke up. He says the dizziness has been persisting and it does not have any relation to activity, standing up from sitting or lying down. He says it will just randomly hit him last for a few minutes and then just go away. Reports that the episodes have been increasing in frequency. Patient was recently seen here on April 01 for a duplex of his lower extremities which was normal he also had a cardiac MRI; after that he was told by Dr. Lipscomb that he needed a cardiac cath but not emergently. Patient reports having both Covid vaccinations Patient reports that since the dizziness started she has also been having some abdominal pain along with bloating. The changes in diet he just feels very bloated. He denies any vomiting, hematemesis, abnormal bowel movements, bloody bowel movements. Patient otherwise is not endorsing shortness of breath, chest pain, dysuria, joint pain, headache, vision changes. 04/19/2021: Patient seen and evaluated bedside. Still reports intermittent dizziness, without any aggravating or alleviating factors. States dizziness will occur even at rest. Interested patient from supine position I do appreciate some horizontal and vertical nystagmus. He also notes having to use the wall to support himself as he walks. Will place consult to neurology for concern of posterior CVA given medical history. Also reports shortness of breath and limited distance walking. Minimal edema on exam and some lung crackles. Discussed case with Dr. Lion, will likely monitor overnight and consider ischemic evaluation tomorrow. Will diurese with Lasix, and monitor kidney function. Patient also notes abdominal bloating; states his last bowel movement was several days ago. Will provide MiraLAX. Vitals/I&O Vitals/I&O: Vital Signs Date Time Temp Pulse Resp B/P (MAP) Pulse Ox O2 Delivery O2 Flow Rate FiO2 04/20/21 11:00 97.7 64 16 118/83 (95) 99 Room Air 97.7 I & O 04/19/21 04/19/21 04/20/21 15:00 23:00 07:00 Intake Total 440 ml 820 ml 200 ml Output Total 500 ml 425 ml 525 ml Balance -60 ml 395 ml -325 ml Physical Exam General: mild distress Heart: Regular rate Lungs: Crackles Abdomen: Normal bowel sounds Extremities: Other (+1 bilateral lower extremity edema, ) Skin: No rashes, No breakdown Review of Systems Review of Systems: PT denies chest pain PT denies shortness of breath Assessment and Plan Assessmemt and Plan Dizziness without syncope abdominal pain/bloating hypertension atrial fibrillation REEMA versus CKD Plan cardiac monitoring echo/MRI today PTOT Home Rx DVT prophylaxis Anticoag possible D/C tomorrow Appreciate subspecialist input Comment Review of Relevant I have reviewed the following items luis manuel (where applicable) has been applied. Medications: Current Medications Medications (Trade) Dose Ordered Sig/Fawad Route PRN Reason Start Time Stop Time Status Last Admin Dose Admin Polyethylene Glycol (miraLAX PACKET) 17 gm PRN DAILY PRN PO CONSTIPATION 04/19/21 15:00 04/19/21 15:47 Dutasteride (Avodart) 0.5 mg DAILY PO 04/19/21 17:00 04/20/21 09:24 Tamsulosin HCl (Flomax) 0.4 mg DAILY PO 04/19/21 17:00 04/20/21 09:26 Justifications for Admission Other Justification JUDI COBURN III DO Apr 20, 2021 12:15
[2021-04-20] MEDS: LISINOPRIL 20 MG TABLET PO SCH (13:09)
[2021-04-20 14:49] LABS: CALCIUM 9.2 mg/dL (8.5-10.1); CREATININE 1.4 mg/dL (0.7-1.3); GFR 60.6; POTASSIUM 4.7 mmol/L (3.5-5.1)
[2021-04-20 14:50] LABS: CHOLESTEROL/HDL RATIO 4.2
[2021-04-20 15:14] VITALS: BP 143/83
--- NOTE | 2021-04-20 15:58 | RAD ---
EXAMINATION: Magnetic resonance imaging (MRI) of the brain and brainstem without contrast 04/20/2021 2 :37 PM HISTORY: Dizziness TECHNIQUE: Multiplanar multi-weighted MRI of the brain and brainstem was performed without intravenou s contrast using the general brain protocol. COMPARISON: CT head 04/18/2021, MRI brain 05/23/2016 FINDINGS: The scalp and calvarium are normal. The superior sagittal sinus demonstrates normal venous flow. The corpus callosum is normal in shape and signal intensity. The posterior fossa is unremarkable. The p ituitary and sella are normal. The brainstem and craniocervical junction are unremarkable. There is a remote infarct involving the right frontal and temporal lobes with involvement of the insula, right frontal operculum and temporal operculum. There are T2/FLAIR signal hyperintense foci in the periven tricular and subcortical white matter with areas of confluence most suggestive of moderate chronic sm all vessel ischemic changes. Diffusion weighted images reveal no hyperintensities to suggest acute cerebral infarction. The suscep tibility weighted sequences reveal no evidence of acute or chronic hemorrhage. Ventricles, sulci and basal cisterns are prominent compatible with mild/moderate generalized cerebral volume loss. The paranasal sinuses are normal. The visualized portions of the mastoids are unremarkable. The orbi ts appear normal with exception of bilateral lens replacement. Normal flow voids are demonstrated in the carotid arteries and basilar artery. IMPRESSION: 1. No evidence for acute or subacute ischemia. 2. Moderate territory remote infarct involving the right middle cerebral artery territory with involv ement of the right frontal operculum, insula and superior temporal gyrus/temporal operculum. 3. Mild to moderate generalized cerebral volume loss. There are T2/FLAIR signal hyperintense foci in the periventricular and subcortical white matter with areas of confluence most suggestive of moderate chronic small vessel ischemic changes. Electronically signed by: Nilsa Davis MD (04/20/2021 3:56 PM) [id number]
--- NOTE | 2021-04-20 16:45 | CARD ---
MR#: [id number] Date of Study: 04/20/2021 Ordering Physician: ASHLIE MELENDEZ, Referring Physician: ASHLIE MELENDEZ, Tech: Bakari Fine [facility] APPROVED REPORT EXAM: LIMITED Two-dimensional and M-mode echocardiogram with Doppler and color Doppler. Other Information Quality : FairHR: 60bpm Rhythm : NSR INDICATION Dizziness and Vertigo RISK FACTORS Hypertension Obesity Hyperlipidemia Smoking 2D DIMENSIONS Left Atrium(2D)4.0 (1.6-4.0cm)IVSd1.2 (0.7-1.1cm) Aortic Root(2D)3.9 (2.0-3.7cm)LVDd5.4 (3.9-5.9cm) PWd1.2 (0.7-1.1cm)LVDs3.8 (2.5-4.0cm) FS (%) 28.9 %SV78.0 ml M-Mode DIMENSIONS Left Atrium(MM)5.23 (2.5-4.0cm)Aortic Root3.79 (2.2-3.7cm) Mitral Valve MV E Lbshtasi92.3cm/sMV DECEL [id number] MV A Nfxlejxv95.6cm/sE/A Ratio0.8 Pulmonary Valve PV Peak Xazyxkwo00.8cm/s Tricuspid Valve TR P. Etmknokw407ve/sTR Peak Gr.13mmHg LEFT VENTRICLE The left ventricle is normal size. There is borderline to mild concentric left ventricular hypertroph y. The left ventricular systolic function is normal and the ejection fraction is within normal range. LV ejection fraction is estimated at 55 to 60%. There is normal LV segmental wall motion. Tissue Dop pler imaging reveals abnormal left ventricular diastolic dysfunction. No left ventricle thrombus note d on this study. There is no ventricular septal defect visualized. There is no left ventricular aneur ysm. There is no mass noted in the left ventricle. RIGHT VENTRICLE The right ventricle is normal size. There is normal right ventricular wall thickness. The right ventr icular systolic function is normal. ATRIA The left atrium is mildly dilated. The right atrium size is normal. The interatrial septum is intact with no evidence for an atrial septal defect or patent foramen ovale as noted on 2-D or Doppler imagi ng. AORTIC VALVE The aortic valve is normal in structure and function. Doppler and Color Flow revealed no significant aortic regurgitation. There is no significant aortic valvular stenosis. There is no aortic valvular v egetation. MITRAL VALVE The mitral valve is normal in structure and function. There is no evidence of mitral valve prolapse. There is no mitral valve stenosis. Doppler and Color-flow revealed mild mitral regurgitation. TRICUSPID VALVE The tricuspid valve is normal in structure and function. Doppler and Color Flow revealed trace tricus pid regurgitation. There is no tricuspid valve prolapse or vegetation. There is no tricuspid valve st enosis. GREAT VESSELS Aortic root is mildly enlarged at 3.9 cm. Ascending aorta not well seen The pulmonary artery is chucho l. IVC not well seen but appears normal. PERICARDIAL EFFUSION There is no pleural effusion. There is no evidence of significant pericardial effusion. Critical Notification Critical Value: No <Conclusion> The left ventricle is normal size. The left ventricular systolic function is normal and the ejection fraction is within normal range. LV ejection fraction is estimated at 55 to 60%. There is borderline to mild concentric left ventricular hypertrophy. Doppler and Color Flow revealed no significant aortic regurgitation. There is no significant aortic valvular stenosis. Doppler and Color-flow revealed mild mitral regurgitation. Doppler and Color Flow revealed trace tricuspid regurgitation. Aortic root is mildly enlarged at 3.9 cm. Signed by : Lasha Gan MD Electronically Approved : 04/20/2021 16:44:32
[2021-04-20 18:48] VITALS: BP 125/79
[2021-04-20] MEDS ORDERED: ATORVASTATIN CALCIUM 40 MG TABLET. PO SCH (21:00)
[2021-04-20 22:28] VITALS: BP 139/72
--- NOTE | 2021-04-21 00:38 | CONS ---
DATE OF CONSULTATION: 04/20/2021 REFERRING PHYSICIAN: Pancho Núñez DO. DATE OF CONSULTATION: 04/20/2021. REASON FOR CONSULTATION: Dizziness. HISTORY OF PRESENT ILLNESS: The patient is a pleasant 71-year-old man, who has been having episodes of intermittent dizziness for a number of months. This does not always seem related to position change or posture. This can occur while sitting down or just watching TV. Suddenly, he will feel lightheaded, dizzy and fainty. Sometimes, it feels like the room is spinning. Occasionally, it will be associated with a very brief visual disturbance, wavy lines, which will last about 5 seconds. He just waits it out and it goes away. He does not notice it occurring when rolling over in bed or suddenly changing positions or postures. He reports that previously he did have atrial fibrillation and has been told he has a regular cardiac rhythms. This has not been associated with weakness of arms or legs. He has not had numbness or change of coordination. PAST MEDICAL HISTORY: 1. History of atrial fibrillation. 2. Hypertension. 3. Migraine headache. ALLERGIES: No known allergies to drugs. MEDICATIONS: Prior to admission, amiodarone 200 mg, amlodipine 5 mg, apixaban 5 mg twice per day, Excedrin every 8 hours as needed, dutasteride 0.5 mg, iron sulfate 325 mg, lisinopril/hydrochlorothiazide, and tamsulosin 0.4 mg. FAMILY HISTORY: Noncontributory. SOCIAL HISTORY: He does not smoke tobacco or drink alcohol. He does smoke marijuana on a daily basis. He does not use other recreational drugs. 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 REVIEW OF SYSTEMS: He has not had any headache. There has been no change of vision or hearing. He does have a visual disturbance at time associated with his symptoms. He has not had much in the way of headache. He has not had any nose or sinus trouble. He is not aware of any cognitive loss. He has been able to chew and swallow without choking. He has not had shortness of breath, chest or abdominal pain. He does not complain of bone or joint pain. He has not had fever or rash. He has not had any gastrointestinal complaints. He does have nocturia around 4 times a night. He does occasionally have numbness of his hands that he has to shake off to make it go away. He has not had trouble with walking. He has had the episodes of dizziness as mentioned above. Does not have any psychiatric concerns. He does not complain of excessive bruising, bleeding or swelling. PHYSICAL EXAMINATION: VITAL SIGNS: Blood pressure was 143/83, pulse 91, respirations 18, temperature 97.7 degrees Fahrenheit orally. Oximetry was 96% on room air. His weight was 145 kilograms, height 73 inches with a calculated body mass index of 42.2. NEUROLOGIC: He was alert, awake and cooperative. Speech was fluent and clear. He had a good fund of recent and remote knowledge. Attention and concentration was intact. He appeared well-groomed and well nourished. He was fully oriented. Examination of the cranial nerves revealed visual cruz were full to confrontation. Extraocular movements were intact. The eyes were conjugate. Pursuit movements were smooth and saccadic eye movements were without dysmetria. There was no nystagmus. Pupils were 3 mm and reacted. Head impulse test was negative. Funduscopic exam did not reveal papilledema, exudate or hemorrhage. Facial sensation was intact. The muscles of mastication and facial expression were powerful symmetrically. Hearing was intact to finger rub. The palate arched symmetrically and the tongue was midline with full motion. Sternocleidomastoid and trapezius were powerful. Muscle bulk and tone was normal. There was no arm drift or abnormal movement. Power was full and symmetric in the upper and lower extremities. Reflexes 2/4 and symmetric in the upper and lower extremities and 1/4 at the ankles. The toes were downgoing bilaterally. Coordination testing with [id number], heel to cesar, fine motor and rapid alternating movements was well performed. The sensory examination was intact to pain, light touch, cold thermal, vibration, graphesthesia and proprioception except for some shading to cold in the feet, but his feet themselves were cold. There was no extinction to double simultaneous stimulation. He was able to stand and bear weight. He could walk several steps forward and backward. He can take a few steps on heels or toes. The Romberg stance was negative. Auscultation of the carotid arteries did not reveal a bruit. Heart rhythm was regular without a murmur. Peripheral pulses were symmetric at the wrists and in the feet. There was no edema or cyanosis. His posture was abnormal with his shoulders rounded and his head forward in order to look level, he had to extend his head slightly. I attempted a Babar-Hallpike maneuver, but he was not able to extend his neck and turn his head at the same time needed to perform the test. I was not able to provoke an abnormal response. LABORATORY RESULTS: CBC revealed a normal white blood cell count, hemoglobin, hematocrit and platelet count. Chemistries were performed 04/20/2021, revealing normal electrolytes and BUN. Creatinine was elevated at 1.4 with a GFR calculated at 60.6. Glucose was elevated at 110. Calcium was normal. Troponin was not elevated. Lipid profile revealed a total cholesterol of 187, triglycerides of 111, HDL was 45, LDL elevated at 120 and VLDL was 22. The cholesterol/HDL ratio was 4.2. TSH was normal on 04/20/2021. Coagulation was performed 04/18/2021, revealing a PT/INR of 1.2. Urinalysis was performed 04/18/2021, and was negative. DIAGNOSTIC RESULTS: Chest x-ray was performed 04/18/2021, revealing no evidence of acute cardiopulmonary abnormality or significant interval change. DIAGNOSTIC DATA: CT scan of head was performed 04/18/2021, compared to 05/22/2016. There was no acute intracranial abnormality. Abdominal and pelvic CAT scan was performed 04/18/2021, revealing a small amount of free fluid within the pelvis. There were no additional abnormalities seen. MRI brain was performed, but the radiologic interpretation is not yet available. I reviewed the images. There appears to be a chronic right parietal stroke, but I do not see an acute process. IMPRESSION: The patient is a 71-year-old man who has brief episodes of dizziness and a feeling like he might pass out. I did not see a definite vestibular component to this problem. The neurologic exam was nonfocal. I am suspicious this may be a primary cardiac disturbance. Cardiac investigation is currently underway. I will be happy to reevaluate. PRINCE HEWITT: Rajat TID: [id number]
[2021-04-21 03:17] VITALS: BP 107/55
[2021-04-21 07:00] VITALS: BP 136/81
--- NOTE | 2021-04-21 08:00 | RAD ---
MR#: [id number] Date of Study: 04/20/2021 Ordering Physician: SINDI BILLINGSLEY, Referring Physician: SINDI BILLINGSLEY, Tech: Radha Somers RT R, CT RDMS , T APPROVED REPORT Patient Location: IN-PATIENT Laterality:Bilateral Indications Dizziness and Vertigo Doppler Spectral Velocity Analysis Right Left pCCA 67/27 cm/spCCA 105/48 cm/s mCCA 65/23 cm/smCCA 116/33 cm/s dCCA 63/20 cm/sdCCA 110/33 cm/s ECA 177/ cm/sECA 102/ cm/s pICA 105/34 cm/spICA 54/23 cm/s Katelynn 72/30 cm/smICA 70/29 cm/s dICA 71/26 cm/sdICA 67/31 cm/s Vert. Vert. 44/ cm/s ICA/CCA 1.57ICA/CCA 0.67 Findings Grayscale images of the bilateral carotid vasculature demonstrates mild to moderate diffuse intimal h yperplasia and plaque. Based on spectral waveforms and color Doppler and velocities there is overall 0 to less than 50% sten osis in the bilateral internal carotid arteries. Normal ICA to CCA ratios bilaterally. Elevated melany ocities in the right external carotid artery suggestive of 50 to 69% stenosis. The right vertebral artery is not visualized. Occlusion cannot be ruled out on this study Left vertebral artery has no significant disease based on velocity criteria. Critical Notification Critical Value: No <Conclusion> 1. No evidence of high-grade carotid occlusive disease bilaterally 2. The right vertebral artery is not well visualized on this study, occlusion cannot be ruled out. Signed by : Feliberto Romero, Electronically Approved : 04/21/2021 08:00:40
--- NOTE | 2021-04-21 08:00 | NUR ---
resting quietly in bed. denies dizziness at this time. Juan R (cn) and Pantera (general supervisor) are responsible for telemetry on this patient.
[2021-04-21] MEDS: TAMSULOSIN 0.4 MG CAP.ER.24H. PO SCH (08:21)
[2021-04-21] MEDS: FERROUS SULFATE 325 MG TABLET. PO SCH (08:21)
[2021-04-21] MEDS: APIXABAN 5 MG TABLET. PO SCH (08:21)
[2021-04-21] MEDS: SENNOSIDES/DOCUSATE 8.6/50MG TABLET. PO SCH (08:21)
[2021-04-21] MEDS: DUTASTERIDE 0.5 MG CAPSULE PO SCH (08:21)
[2021-04-21] MEDS: PANTOPRAZOLE 40 MG TABLET.DR. PO SCH (08:26)
[2021-04-21] MEDS: LISINOPRIL 20 MG TABLET PO SCH (10:04)
--- NOTE | 2021-04-21 10:17 | PDOC ---
CARDIO Progress Notes Date and Time Date of Service 04/21/2021 Time of Evaluation 1000 Subjective Subjective: No Chest Pain, No shortness of breath, No Palpitations, No Dizziness Vitals Vitals Vital Signs Date Time Temp Pulse Resp B/P (MAP) Pulse Ox O2 Delivery O2 Flow Rate FiO2 04/21/21 10:04 84 132/60 04/21/21 08:00 Room Air 04/21/21 07:00 97.7 16 97 97.7 Weight Weight [ ] Input and Output Intake and Output Intake and Output 04/21/21 07:00 Intake Total 1080 ml Output Total 1725 ml Balance -645 ml Intake Oral 1080 ml Output Urine Total 1725 ml Laboratory Labs Laboratory Tests Test 04/20/21 14:00 Sodium Level 140 mmol/L (136-145) Potassium Level 4.7 mmol/L (3.5-5.1) Chloride Level 105 mmol/L (98-107) Carbon Dioxide Level 25 mmol/L (21-32) Anion Gap 10 (6-14) Blood Urea Nitrogen 13 mg/dL (8-26) Creatinine 1.4 mg/dL (0.7-1.3) Estimated GFR (Cockcroft-Gault) 60.6 Glucose Level 110 mg/dL (70-99) Calcium Level 9.2 mg/dL (8.5-10.1) Troponin I Quantitative < 0.017 ng/mL (0.000-0.055) Triglycerides Level 111 mg/dL (0-150) Cholesterol Level 187 mg/dL (0-200) LDL Cholesterol, Calculated 120 mg/dL (0-100) VLDL Cholesterol, Calculated 22 mg/dL (0-40) Non-HDL Cholesterol Calculated 142 mg/dL (0-129) HDL Cholesterol 45 mg/dL (40-60) Cholesterol/HDL Ratio 4.2 Thyroid Stimulating Hormone (TSH) 0.895 uIU/mL (0.358-3.74) Physical Exam HEENT: Neck Supple W Full Motion Chest: Symmetric LUNGS: Clear to Auscultation Heart: RRR (SR with rare PVCs) Abdomen: Soft N/T Extremities: No Edema Neurology: alert, oriented, follow commands Assessment Assessment 1. Dizziness; no acute events on tele. orthos negative. MRI with prior stroke. No acute findings. 2. PAFIB; presently SR. Amiodarone for rhythm maintenance. Eliquis 3. Abdominal pain, bloating, none further 4. Recent abnormal MPI with moderate to large size reversible inferior, apical and lateral defect. No CP 5. Chronic diastolic CHF: EF and WM nml per TTE 6. H/o CVA 7. Hyperlipidemia 8. Possible CKD: Cr at 1.4 Recommendations Secondary prevention measures ASA. Eliquis, statin Amiodarone for rhythm maintenance Will plan for outpatient left heart cath Supportive care Justicifation of Admission Dx: Justifications for Admission: Justification of Admission Dx: Yes Angina: Cres[place] Worsening of Sym PAT HERNDON SUBSTATION OPERATOR HELPER Apr 21, 2021 10:17
[2021-04-21] MEDS ORDERED: ASPI-886 PO (10:24)
--- NOTE | 2021-04-21 10:51 | PDOC ---
[facility] PROGRESS NOTE Date of Service DOS: DATE: 04/21/21 TIME: 10:46 Chief Complaint Chief Complaint Dizziness without syncope abdominal pain/bloating hypertension atrial fibrillation REEMA versus CKD History of Present Illness History of Present Illness 04/21/2021 Pt seen and examined D/W RN Chart review 04/20/2021 Patient seen and examined Discussed with RN Chart reviewed He is awaiting echo and MRI today Patient 72-year-old male who presents today due to 3-day history of dizziness. Patient reports that out of nowhere he awoke 3 days ago and was having dizziness when he woke up. He says the dizziness has been persisting and it does not have any relation to activity, standing up from sitting or lying down. He says it will just randomly hit him last for a few minutes and then just go away. Reports that the episodes have been increasing in frequency. Patient was recently seen here on April 01 for a duplex of his lower extremities which was normal he also had a cardiac MRI; after that he was told by Dr. Lipscomb that he needed a cardiac cath but not emergently. Patient reports having both Covid vaccinations Patient reports that since the dizziness started she has also been having some abdominal pain along with bloating. The changes in diet he just feels very bloated. He denies any vomiting, hematemesis, abnormal bowel movements, bloody bowel movements. Patient otherwise is not endorsing shortness of breath, chest pain, dysuria, joint pain, headache, vision changes. 04/19/2021: Patient seen and evaluated bedside. Still reports intermittent dizziness, without any aggravating or alleviating factors. States dizziness will occur even at rest. Interested patient from supine position I do appreciate some horizontal and vertical nystagmus. He also notes having to use the wall to support himself as he walks. Will place consult to neurology for concern of posterior CVA given medical history. Also reports shortness of breath and limited distance walking. Minimal edema on exam and some lung crackles. Discussed case with Dr. Lion, will likely monitor overnight and consider ischemic evaluation tomorrow. Will diurese with Lasix, and monitor kidney function. Patient also notes abdominal bloating; states his last bowel movement was several days ago. Will provide MiraLAX. Vitals/I&O Vitals/I&O: Vital Signs Date Time Temp Pulse Resp B/P (MAP) Pulse Ox O2 Delivery O2 Flow Rate FiO2 04/21/21 10:04 84 132/60 04/21/21 08:00 Room Air 04/21/21 07:00 97.7 16 97 97.7 I & O 04/20/21 04/20/21 04/21/21 14:59 22:59 06:59 Intake Total 600 ml 240 ml 240 ml Output Total 700 ml 300 ml 725 ml Balance -100 ml -60 ml -485 ml Physical Exam General: Alert, Oriented X3 Heart: Regular rate Lungs: Crackles Abdomen: Normal bowel sounds Extremities: Other (+1 bilateral lower extremity edema, ) Skin: No rashes, No breakdown Labs Labs: Laboratory Tests Test 04/20/21 14:00 Sodium Level 140 mmol/L (136-145) Potassium Level 4.7 mmol/L (3.5-5.1) Chloride Level 105 mmol/L (98-107) Carbon Dioxide Level 25 mmol/L (21-32) Anion Gap 10 (6-14) Blood Urea Nitrogen 13 mg/dL (8-26) Creatinine 1.4 mg/dL (0.7-1.3) Estimated GFR (Cockcroft-Gault) 60.6 Glucose Level 110 mg/dL (70-99) Calcium Level 9.2 mg/dL (8.5-10.1) Troponin I Quantitative < 0.017 ng/mL (0.000-0.055) Triglycerides Level 111 mg/dL (0-150) Cholesterol Level 187 mg/dL (0-200) LDL Cholesterol, Calculated 120 mg/dL (0-100) VLDL Cholesterol, Calculated 22 mg/dL (0-40) Non-HDL Cholesterol Calculated 142 mg/dL (0-129) HDL Cholesterol 45 mg/dL (40-60) Cholesterol/HDL Ratio 4.2 Thyroid Stimulating Hormone (TSH) 0.895 uIU/mL (0.358-3.74) Review of Systems Review of Systems: 04/21/21 pt showed sinus rhythm Assessment and Plan Assessmemt and Plan assessment Dizziness without syncope abdominal pain/bloating hypertension atrial fibrillation REEMA versus CKD plan 04/21/2021 Possible D/C observational continue cardiac monitoring continue eloquist Comment Review of Relevant I have reviewed the following items luis manuel (where applicable) has been applied. Medications: Current Medications Medications (Trade) Dose Ordered Sig/Fawad Route PRN Reason Start Time Stop Time Status Last Admin Dose Admin Atorvastatin Calcium (Lipitor) 40 mg QHS PO 04/20/21 21:00 04/20/21 20:12 Justifications for Admission Other Justification JUDI COBURN III DO Apr 21, 2021 10:50
[2021-04-21 10:52] VITALS: BP 133/76
[2021-04-21] MEDS ORDERED: ASPIRIN ENTERIC COATED 81 MG TABLET.DR. PO SCH (11:00)
[2021-04-21] MEDS: AMIODARONE HCL 200 MG TABLET. PO SCH (11:05)
--- NOTE | 2021-04-21 11:12 | NUR ---
SS following up with discharge planning. SS reviewed pt chart and discussed with pt RN. Pt is currently on room air. Discharge plan is to home when medically stable for discharge. Probable discharge to home today. SS will continue to follow for discharge planning.
[2021-04-21] MEDS ORDERED: PANT40TA77 PO (11:13)
[2021-04-21] MEDS ORDERED: ATOR40TA59 PO (11:13)
--- NOTE | 2021-04-21 12:07 | DS ---
DATE OF DISCHARGE: 04/21/2021 ADMITTING DIAGNOSIS: Dizziness. DISCHARGE DIAGNOSES: Resolving dizziness, history of hypertension, history of atrial fibrillation, chronic anticoagulation, chronic kidney disease, history of gastroesophageal reflux disease, hyperlipidemia, hypertension, anemia, benign prostatic hyperplasia. CONSULTS: Cardiology and Neurology. PROCEDURES: None. HOSPITAL COURSE: The patient is a pleasant middle-aged male who presented with some dizziness. He was in paroxysmal AFib, which he has had a history of. Today, I saw him and examined him. He is doing well. He is back into sinus rhythm. I spoke with Cardiology. They would like to consider an outpatient cardiac catheterization. Clinically, he is doing great. We plan to discharge with close outpatient followup. DISPOSITION: Home. ACTIVITY: As tolerated. DIET: Low sodium. DISCHARGE MEDICATIONS: Please see the MRAD. Eliquis 5 b.i.d., amiodarone 200 daily, aspirin 81 a day, dutasteride 0.5 a day, iron 325 daily, lisinopril/hydrochlorothiazide 20/12.5 one a day, Flomax 0.4 a day, atorvastatin 40 a day, Protonix 40 a day. TOTAL TIME: 34 minutes. EMILY/ASMITA DR: EMILY/garrett TID: [id number]
[2021-04-21 15:00] VITALS: BP 123/56
--- NOTE | 2021-04-21 16:48 | NUR ---
reviewed discharge instructions with [facility]. this includes new medications and when they are due next. also, highlighted follow up appts with him with primary physician, Comfort and Dr. Gan. verbalized understanding of these instructions
--- NOTE | 2021-05-06 12:26 | NUR ---
Late entry - NaCl infusion bolus started on 04/18/21 at 2120 and stopped on 04/18/21 at 2220.
== END 2021-04-21 17:05 | disposition home or self-care (01) ==
LOC: ER 12:50 → ED HOLD 16:49 → 2 NORTH 19:01 → OBSVTOIN 04-19 23:04 → INTOOBSV 04-19 23:04
PROVIDERS: ADMIT Nurse Practitioner Family; ATTEND Student in an Organized Health Care Education/Training Program
DX: R42 Dizziness and giddiness (principal); E78.5 Hyperlipidemia, unspecified; G43.909 Migraine, unspecified, not intractable, without status migrainosus; I48.0 Paroxysmal atrial fibrillation; I13.0 Hypertensive heart and chronic kidney disease with heart failure and stage 1 through stage 4 chronic kidney disease, or unspecified chronic kidney disease; I50.42 Chronic combined systolic (congestive) and diastolic (congestive) heart failure; N18.9 Chronic kidney disease, unspecified; D63.1 Anemia in chronic kidney disease; N17.9 Acute kidney failure, unspecified; K21.9 Gastro-esophageal reflux disease without esophagitis; N40.0 Benign prostatic hyperplasia without lower urinary tract symptoms; F12.90 Cannabis use, unspecified, uncomplicated; Z79.01 Long term (current) use of anticoagulants; Z82.49 Family history of ischemic heart disease and other diseases of the circulatory system; Z86.73 Personal history of transient ischemic attack (TIA), and cerebral infarction without residual deficits; Z87.891 Personal history of nicotine dependence
CPT/HCPCS: 36415; 70450; 70551; 71045; 74176; 80048; 80053; 80061; 81001; 83690; 83735; 84443; 84484; 85025; 85610; 93005; 93308; 93880; 96360; 99285; G0378; J7030; G0379

== ENCOUNTER 2021-06-16 08:22 | Emergency (ER) | payer MEDICARE ==
[~2021-06-16] VITALS: Ht 185.4 cm; Wt 146.7 kg
[~2021-06-16 08:22] MED LIST changes: +ASPI-886 PO; +ATOR40TA59 PO; +DUTA0.5C36 PO; +PANT40TA77 PO; +TAMS0.4C97 PO
--- NOTE | 2021-06-16 09:58 | PHYS DOC ---
Past Medical History Past Medical History: A-Fib, Hypertension, Sciatica, Stroke, Other Additional Past Medical Histor: polyp,A FIB W/RVR, heat stroke Past Surgical History: Other Additional Past Surgical Histo: R knee "muscle repair"; colonoscopy, L EYE Smoking Status: Former Smoker Alcohol Use: Rarely Drug Use: Marijuana General Adult EDM: Chief Complaint: DIZZY/LIGHT HEADED HPI: HPI: Patient is a 71 year old male with history of A. fib, HTN who presents with months long episode of lightheadedness/vertigo. States that the room spinning comes on when he moves his head, especially to the left. He does feel like he may pass out as well. Has not had a syncopal episode. Was admitted in March for the same complaint. He had a reassuring head CT, abdominal CT, echocardiogram. He was discharged with a plan for an outpatient catheterization. He is continue to follow-up with his outpatient water main installer helper, and they recently decided to forego catheterization. He presents today, because the symptoms have become worse in the past week. Denies chest pain, shortness of breath. No double vision, speech difficulty, numbness, tingling, or coordination difficu lties. Review of Systems: Review of Systems: Constitutional: Denies fever or chills. [] Eyes: Denies change in visual acuity. [] HENT: Denies nasal congestion or sore throat. [] Respiratory: Denies cough or shortness of breath. [] Cardiovascular: Denies chest pain or edema. [] GI: Denies abdominal pain, nausea, vomiting, bloody stools or diarrhea. [] : Denies dysuria. [] Musculoskeletal: Denies back pain or joint pain. [] Integument: Denies rash. [] Neurologic: Reports vertigo and lightheadedness. Denies headache, focal weakness or sensory changes. [] Endocrine: Denies polyuria or polydipsia. [] Lymphatic: Denies swollen glands. [] Psychiatric: Denies depression or anxiety. [] Heart Score: C/O Chest Pain: No Risk Factors: Risk Factors: DM, Current or recent (<one month) smoker, HTN, HLP, family history of CAD, obesity. Risk Scores: Score 0 - 3: 2.5% MACE over next 6 weeks - Discharge Home Score 4 - 6: 20.3% MACE over next 6 weeks - Admit for Clinical Observation Score 7 - 10: 72.7% MACE over next 6 weeks - Early Invasive Strategies Allergies: Allergies: Allergies Coded Allergies Type Severity Reaction Last Updated Verified No Known Drug Allergies 05/06/15 No Physical Exam: PE: Constitutional: Well developed, well nourished, no acute distress, non-toxic appearance. [] HENT: Normocephalic, atraumatic, TM and external auditory canals normal. [] Eyes: PERRLA, EOMI, conjunctiva normal, no discharge. [] Neck: Normal range of motion, no tenderness, supple, no stridor. [] Cardiovascular:Heart rate regular rhythm, no murmur [] Lungs & Thorax: Bilateral breath sounds clear to auscultation [] Abdomen: Bowel sounds normal, soft, no tenderness, no masses, no pulsatile masses. [] Skin: Warm, dry, no erythema, no rash. [] Back: No tenderness, no CVA tenderness. [] Extremities: No tenderness, no cyanosis, no clubbing, ROM intact, no edema. [] Neurologic: Alert, oriented to person, place, time. Face is symmetric. Speech is normal. EOMs intact. Negative test of skew. Head impulse testing shows a isolated corrective saccade with impulse towards his left ear, this is reproducible on several attempts. Head impulse towards right is normal. [place]-Hallpike negative bilaterally. Cranial nerves III-XII intact. 5/5 strength in bilateral upper and lower extremities in all dermatomes. No dysmetria with [id number]-nu-aytd or sflv-oq-tjys testing. Gait is stable. Psychologic: Affect normal, judgement normal, mood normal. [] EKG: EKG: Sinus rhythm. Frequent PVCs. Left axis deviation. No acute ischemic changes. [] Radiology/Procedures: Radiology/Procedures: [] Course & Med Decision Making: Course & Med Decision Making Pertinent Labs and Imaging studies reviewed. (See chart for details) Patient is a 71-year-old man with history of A. fib, HTN who presents with persistent vertigo/lightheadedness for the past several months. Hospitalized with extensive work-up in March of this year. Was discharged with plan for outpatient cardiac catheterization, but this was deferred as his symptoms had improved. Over the past week his symptoms have returned. On my evaluation he does have evidence of peripheral vertigo with a reproducible corrective saccade with leftward head impulse. Exam without findings of central vertigo, and history not supportive given intermittent sx related to head movements. EKG does show frequent PVCs, which has been chronic for the patient Will check basic labs and troponin to ensure no need for more urgent cardiac catheterization. -- Troponin negative. Creatinine 1.6, at recent baseline. No other electrolyte or cell count abnormalities. I have asked that he follow-up with his PCP and consider ENT referral for peripheral vertigo. Of asked that he call his water main installer helper and move up his follow-up appointment to reopen discussion surrounding cardiac catheterization of the symptoms of return. Return precautions provided for chest pain, shortness of breath, syncope, or other new/concerning symptoms. [id number] Disclaimer: Kassandra Disclaimer: This electronic medical record was generated, in whole or in part, using a voice recognition dictation system. Departure Departure Impression: Primary Impression: Vertigo Disposition: HOME / SELF CARE / HOMELESS Condition: STABLE Referrals: BRADEN GARCIA MD (PCP) Additional Instructions: Please schedule a follow-up appointment with Dr. Lion and with your PCP. I believe an ENT referral may be helpful for vertigo. This is usually an inner ear problem, and it appears his left ear may be affected. We unfortunately cannot make a direct referral to an ENT from our hospital. In the meantime you can take meclizine 25 mg every 8 hours if it helps. Please return to the emergency department if you have chest pain, shortness of breath, or if you pass out. Scripts Meclizine Hcl (MECLIZINE HCL) 25 Mg Tablet 1 TAB PO TID for dizziness, #20 TAB Prov: SHAUNA ARAUJO MD 06/16/21 SHAUNA ARAUJO MD Jun 16, 2021 09:58
[2021-06-16 10:07] LABS: BASO # 0.1 x10^3/uL (0.0-0.2); BASO % 1 % (0-3); EOS # 0.2 x10^3/uL (0.0-0.7); EOS % 3 % (0-3); HEMATOCRIT 42.2 % (39.0-53.0); HEMOGLOBIN 14.5 g/dL (13.0-17.5); LYMPH # 2.2 x10^3/uL (1.0-4.8); LYMPH % 33 % (24-48); MEAN CORPUSCULAR HEMOGLOBIN 33 pg (25-35); MEAN CORPUSCULAR HGB CONC 35 g/dL (31-37); MEAN CORPUSCULAR VOLUME 96 fL (79-100); MONO # 0.5 x10^3/uL (0.0-1.1); MONO % 7 % (0-9); NEUT # 3.8 x10^3/uL (1.8-7.7); NEUT % 56 % (31-73); PLATELET COUNT 156 x10^3/uL (140-400); RED CELL DISTRIBUTION WIDTH 14.3 % (11.5-14.5); WHITE BLOOD COUNT 6.7 x10^3/uL (4.0-11.0)
[2021-06-16 10:34] LABS: CALCIUM 9.4 mg/dL (8.5-10.1); CREATININE 1.6 mg/dL (0.7-1.3); POTASSIUM 3.7 mmol/L (3.5-5.1)
[2021-06-16] MEDS: MECLIZINE HCL 12.5 MG TABLET. PO ONE (10:53)
[2021-06-16] MEDS ORDERED: MECL-75 PO (11:18)
[2021-06-16 11:47] VITALS: BP 142/63
--- NOTE | 2021-06-16 15:17 | EKG ---
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
== END 2021-06-16 11:47 | disposition home or self-care (01) ==
LOC: ER 08:22
DX: R42 Dizziness and giddiness (principal); I48.91 Unspecified atrial fibrillation; I10 Essential (primary) hypertension; Z86.73 Personal history of transient ischemic attack (TIA), and cerebral infarction without residual deficits; Z87.891 Personal history of nicotine dependence
CPT/HCPCS: 36415; 80048; 84484; 85025; 93005; 99283; J8597

== ENCOUNTER → 2021-08-28 | Outpatient (CLI) | payer MEDICARE ==
[2021-06-24 11:00] VITALS: BP 100/75
[~2021-08-28] MED LIST changes: +AMIO200T53 PO; -AMIO200T6 PO; +AMLO2.5T5 PO; +MECL-75 PO
--- NOTE | 2021-08-28 16:55 | KCIC ---
EXAMINATION: Magnetic resonance imaging (MRI) of the lumbar spine without contrast 08/28/2021 11:15 AM HISTORY: Spinal stenosis. Worsening low back pain and bilateral lower extremity pain. TECHNIQUE: Multiplanar multi-weighted MRI of the lumbar spine was performed without intravenous contr ast using the standard lumbar spine protocol. Contrast information: None administered. COMPARISON: MRI lumbar spine 11/27/2014. FINDINGS: Alignment of the lumbar spine is normal. Vertebral body heights are maintained. Modic type II endplat e degenerative changes are identified anteriorly at L2-L3. Moderate anterior marginal osteophytosis i dentified at L1-L2 and L2-L3. Conus medullaris terminates at L1-L2. Distal spinal cord signal intensi ty is normal in all sequences. 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 Abdominal aorta is normal in caliber. No suspicious retroperito abhilash abnormality is identified. There is a retroaortic left renal vein. L1-L2: Disc is normal in configuration. No significant facet arthropathy. No neuroforaminal or spinal canal stenosis. L2-L3: There is a circumferential disc bulge. Mild facet arthropathy. Moderate bilateral neuroforamin al stenosis. Mild to moderate spinal canal stenosis, exacerbated by epidural lipomatosis and congenit al narrowing of the spinal canal. Findings are progressed. L3-L4: There is a circumferential disc bulge with central disc protrusion. Moderate facet arthropathy ligamentum flavum infolding. Severe spinal canal stenosis. Moderate bilateral neuroforaminal stenosi s. Findings are progressed. L4-L5: There is a circumferential disc bulge. Moderate facet arthropathy ligamentum flavum infolding. There is moderate bilateral neuroforaminal stenosis. Moderate spinal canal stenosis. Findings have p rogressed. L5-S1: There is mild disc bulge. Moderate facet arthropathy. Mild bilateral neuroforaminal stenosis. No spinal canal stenosis. IMPRESSION: Moderate degenerative changes of the lumbar spine as described in detail above. 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 Findings have progressed from L2-L3 through L4-L5. Electronically signed by: Nilsa Davis MD (08/28/2021 4:52 PM) [id number]
== END ==
LOC: KCIC MRI 10:57
PROVIDERS: ATTEND Physical Medicine & Rehabilitation
DX: M47.816 Spondylosis without myelopathy or radiculopathy, lumbar region (principal); M51.27 Other intervertebral disc displacement, lumbosacral region; M48.8X7 Other specified spondylopathies, lumbosacral region; M48.07 Spinal stenosis, lumbosacral region; M25.78 Osteophyte, vertebrae
CPT/HCPCS: 72148

== ENCOUNTER 2022-01-09 10:40 | Emergency (ER) | payer MEDICARE ==
[~2022-01-09] VITALS: Ht 185.4 cm; Wt 146.8 kg
[~2022-01-09 10:40] MED LIST changes: -OMEP20TA8 PO; +OMEP20TA91 PO
[2022-01-09] MEDS ORDERED: KETOROLAC 15 MG/ML VIAL. IM ONE (11:30)
[2022-01-09] MEDS ORDERED: ACETAMINOPHEN 500 MG TABLET PO ONE (11:30)
--- NOTE | 2022-01-09 13:00 | RAD ---
Exam performed: X-ray lumbosacral spine and sacrococcygeal spine. HISTORY: Back pain history of steroid injection, difficulty standing. DATE OF SERVICE: 01/09/2022. COMPARISON: None available FINDINGS: AP, lateral and cone view of the lumbosacral junction and AP, lateral and cone view of the sacrococcy geal spine is obtained. Normal sagittal alignment of the lumbosacral and sacrococcygeal spine is main tained. The vertebral body heights intervertebral disc spaces are maintained. There is no claudia or r etrolisthesis. No compression fracture. Extensive osteophytic spurring is seen. There is atheromatous aortic calcification. Sacrococcygeal spine appears grossly aligned and unremarkable. There is no acute fracture Nonspecific bowel gas pattern seen. IMPRESSION: Spondylotic changes and degenerative disc disease involving the lumbosacral and sacrococcygeal spine. No acute abnormality seen. Electronically signed by: Ara Moreno MD (01/09/2022 12:57 PM) [facility]
[2022-01-09 13:26] VITALS: BP 119/59
[2022-01-09] MEDS ORDERED: TRAM50TA PO (13:29)
[2022-01-09] MEDS ORDERED: METH-561 PO (13:29)
--- NOTE | 2022-01-09 13:50 | PHYS DOC ---
Past Medical History Past Medical History: A-Fib, Hypertension, Sciatica, Stroke, Other Additional Past Medical Histor: polyp,A FIB W/RVR,heat stroke,CHRONIC BACK PAIN Past Surgical History: Other Additional Past Surgical Histo: R knee "muscle repair";colonoscopy,L EYE Smoking Status: Former Smoker Alcohol Use: None Drug Use: Marijuana General Adult EDM: Chief Complaint: LOWER EXT PAIN HPI: HPI: Patient is a 71 year old male who presents with left-sided low back pain, no midline tenderness, and bilateral leg pain. Patient states that he has been seeing a back specialist for several months now. He has been receiving epidural injections which do give him some improvement. He states that he has had several days of increasing back pain. He states that this feels like his normal back pain but worsening. He does not know what he did to exacerbate his pain. He states that he otherwise feels well except for the pain that he is experiencing in his left lower back and bilateral legs. He is currently not on any oral pain relievers. He states that he occasionally takes Tylenol but has not taken it recently. He states that he was told that the epidural injections would help a lot. It seems like the back pain is worsening despite epidural injections. Review of Systems: Review of Systems: Constitutional: Denies fever or chills. [] Eyes: Denies change in visual acuity. [] HENT: Denies nasal congestion or sore throat. [] Respiratory: Denies cough or shortness of breath. [] Cardiovascular: Denies chest pain or edema. [] GI: Denies abdominal pain, nausea, vomiting, bloody stools or diarrhea. [] : Denies dysuria. [] Musculoskeletal: Positive left sided back pain and bilateral leg pain [] Integument: Denies rash. [] Neurologic: Denies headache, focal weakness or sensory changes. [] Endocrine: Denies polyuria or polydipsia. [] Lymphatic: Denies swollen glands. [] Psychiatric: Denies depression or anxiety. [] Heart Score: C/O Chest Pain: No Risk Factors: Risk Factors: DM, Current or recent (<one month) smoker, HTN, HLP, family hi story of CAD, obesity. Risk Scores: Score 0 - 3: 2.5% MACE over next 6 weeks - Discharge Home Score 4 - 6: 20.3% MACE over next 6 weeks - Admit for Clinical Observation Score 7 - 10: 72.7% MACE over next 6 weeks - Early Invasive Strategies Current Medications: Current Medications Medications (Trade) Dose Ordered Sig/Fawad Start Time Stop Time Status Last Admin Dose Admin Acetaminophen (Tylenol) 1,000 mg 1X ONCE 01/09/22 11:30 01/09/22 11:31 DC 01/09/22 12:05 1,000 MG Ketorolac Tromethamine (Toradol 15mg Vial) 15 mg 1X ONCE 01/09/22 11:30 01/09/22 11:31 DC 01/09/22 12:06 15 MG Allergies: Allergies: Allergies Coded Allergies Type Severity Reaction Last Updated Verified No Known Drug Allergies 05/06/15 No Physical Exam: PE: Constitutional: Well developed, well nourished, no acute distress, non-toxic appearance. [] HENT: Normocephalic, atraumatic, bilateral external ears normal, oropharynx moist, no oral exudates, nose normal. [] Eyes: PERRLA, EOMI, conjunctiva normal, no discharge. [] Neck: Normal range of motion, no tenderness, supple, no stridor. [] Cardiovascular:Heart rate regular rhythm, no murmur [] Lungs & Thorax: Bilateral breath sounds clear to auscultation [] Abdomen: Bowel sounds normal, soft, no tenderness, no masses, no pulsatile masses. [] Skin: Warm, dry, no erythema, no rash. [] Back: Positive left lower back tenderness, no CVA tenderness. [] Extremities: Positive straight leg raise bilaterally, left lower back pain tenderness to palpation, no midline tenderness to palpation, patient ambulates well, no neurological deficiencies [] Neurologic: Alert and oriented X 3, normal motor function, normal sensory function, no focal deficits noted. [] Psychologic: Affect normal, judgement normal, mood normal. [] Current Patient Data: Vital Signs: Vital Signs Date Time Temp Pulse Resp B/P (MAP) Pulse Ox O2 Delivery O2 Flow Rate FiO2 01/09/22 10:46 97.8 73 20 134/71 (92) 98 Room Air 97.8 EKG: EKG: [] Radiology/Procedures: Radiology/Procedures: Lumbar images no acute findings, chronic changes noted Impression: 71-year-old male with chronic back pain presents with increasing back pain, vital signs normal, no concerns for acute process. Course & Med Decision Making: Course & Med Decision Making Pertinent Labs and Imaging studies reviewed. (See chart for details) 71-year-old male with left-sided back pain, sciatica. Patient is with a back pain specialist already, patient states that he was doing physical therapy but declined to continue physical therapy. Patient was given 1 dose of 15 mg of T oradol IM, patient states that his pain was much relieved with that medication. Patient is not on any oral medication at this time. Patient is 71 years old however with his increasing back pain I gave him a prescription of Robaxin as well as tramadol. He states that he tolerated tramadol recently but he is currently not on it. I told him that he should stay home if he takes tramadol or Robaxin since it can cause dizziness and drowsiness. Patient stated that he understood. I wrote that in his instructions as well. Patient states that he has a follow-up appoint with his back specialist next week, I stated that he should try to make it to that appointment as he will probably come up with another plan for the patient's back pain. Patient does have spinal stenosis as well, history of. He is currently hemodynamically stable, no concerning features at this time, no red flag symptoms. Patient was discharged in stable condition, all questions answered. Kassandra Disclaimer: Kassandra Disclaimer: This electronic medical record was generated, in whole or in part, using a voice recognition dictation system. Departure Departure Impression: Primary Impression: Sciatica Additional Impression: Lumbago Disposition: HOME / SELF CARE / HOMELESS Condition: GOOD Patient Instructions: Sciatica, [id number] Additional Instructions: Please follow-up with your back specialist next week If you take Robaxin or tramadol, please stay home as it may make you dizzy. You may return to the ER if you have developing or worsening symptoms Scripts Tramadol Hcl (TRAMADOL HCL) 50 Mg Tablet 50 MG PO DAILY PRN for PAIN for 7 Days, #7 TAB 0 Refills Prov: DAMARIS DICKENS MD 01/09/22 Methocarbamol (METHOCARBAMOL) 500 Mg Tablet 500 MG PO QID PRN for PAIN for 10 Days, #20 TAB Prov: DAMARIS DICKENS MD 01/09/22 DAMARIS DICKENS MD Jan 09, 2022 13:50
== END 2022-01-09 13:52 | disposition home or self-care (01) ==
LOC: ER 10:40
DX: M54.41 Lumbago with sciatica, right side (principal); M54.42 Lumbago with sciatica, left side; I48.91 Unspecified atrial fibrillation; I10 Essential (primary) hypertension; Z86.73 Personal history of transient ischemic attack (TIA), and cerebral infarction without residual deficits; G89.11 Acute pain due to trauma; Z87.891 Personal history of nicotine dependence
CPT/HCPCS: 72100; 72220; 96372; 99283; J1885